=== PATIENT | male | born 1960 | race Caucasian/White ===

== ENCOUNTER 2020-08-26 09:04 | Inpatient (IN) ==
[2020-08-26] MEDS ORDERED: SODIUM CHLORIDE 0.9% 1000ML 1,000 ML IV ONE (09:38)
--- NOTE | 2020-08-26 09:45 | Emergency Department Note ---
ED Visit Note This patient was seen in concert with Dr. Vizcaino and we discussed and agreed upon the history, physical, assessment and plan. See attending's note for details. Resident Activity Tracking Resident Involvement: Resident Care Provided Care Provided: Adult ED
[2020-08-26] MEDS ORDERED: AMPICILLIN/SULBACTAM SOD 3,000 MG in 0.9 % SODIUM CHLORIDE 100 ML IV STA (09:51)
[2020-08-26] MEDS ORDERED: ACETAMINOPHEN 1,000 MG/100 ML VIAL IV STA (10:03)
[2020-08-26] MEDS ORDERED: NYSTATIN SUSP 500,000 U/5 ML UDC PO STA (10:03)
[2020-08-26] MEDS ORDERED: ALBUT/IPRATROP 3MG/0.5MG NEB 3 ML VIAL NEB STA (10:05)
--- NOTE | 2020-08-26 10:06 | Emergency Department Note ---
History of Present Illness General Chief complaint: Illness Stated complaint: LIGHTHEADED,DENTAL PAIN,CANT KEEP FOOD DOWN Time Seen by Provider: 08/26/20 09:25 Source: patient Mode of arrival: ambulatory Limitations: no limitations History of Present Illness Provider complaint: Fever weakness Maximum Pain Intensity: 4 The patient presents to the ED with a chief complaint of decreased appetite, dental pain and fever as well as decreased p.o. intake and discoloration of his urine yellow. He states that he is not been feeling well for the past week but for the past several days he has felt worse with decreased appetite, decreased urine output and feeling achy. He reports a fever up to 102 this weekend. He states that he started noticing some right upper dental pain in the past 24 to 48 hours. No additional complaints at this time. Does report a cough. History of smoker. Denies tick exposures. Home Medications Medication Instructions Recorded Confirmed Type nicotine (polacrilex) 4 mg gum 4 mg BUCCAL Q2H PRN #100 ea 07/10/20 08/26/20 Rx Allergies Allergy/AdvReac Type Severity Reaction Status Date / Time No Known Allergies Allergy Verified 08/26/20 10:40 Past Med/Surg History Family History Mother Colorectal cancer Brother GERTRUDIS (obstructive sleep apnea) Pituitary disease Renal failure Uncle Diabetes Hypertension Father , Secondary to asbestosis Asbestosis Denies family history of Ovarian cancer Prostate cancer Myocardial infarction Breast cancer Social History Smoking Status: Current every day smoker Tobacco Type: Cigarettes Age Started Using Tobacco: 14; packs per day: 0.5; Years Smoked: 40; Cigarettes Per Day: 10; Second Hand Exposure: Yes; Hx Alcohol Use: Yes Alcohol type: hard liquor Alcohol Intake Frequency: 2-3 x/Week Hx Substance Use: No Preferred Language: Swedish Communication Ability: Effective Visual Impairment: No Limitations Hearing Ability: Normal Prosthetic Aides Teacher Required: No marital status: Single Current Living Situation: Family current occupational status: employed 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 How many Children do You have: 1 Feels Safe at Home: Yes Childhood Exposure to Second-Hand Smoke: Yes caffeine: Yes during the past year weight has: remained stable Dental Care, Regularly: Yes Physical Activity Frequency: Daily Seatbelt Use: always Sunscreen Use: Yes Assistive Devices: Denture - Upper and Glasses Review of Systems A total of 10 systems reviewed and were otherwise negative Physical Exam Vital Signs Vital Signs - 24 hr 08/26/20 09:10 08/26/20 09:46 08/26/20 10:17 Temperature 36.4 C L 38.8 C H Temperature Source Temporal Artery Scan Oral Pulse Rate 121 H Pulse Rate [Apical] 101 H 96 H Pulse Rhythm [Apical] Regular Pulse Strength [Apical] Normal Respiratory Rate 18 24 16 Respiratory Effort / Characteristics Non-Labored Spontaneous Non-Labored Spontaneous Respiratory Depth Normal Respiratory Pattern Regular Blood Pressure 126/77 Blood Pressure [Right Arm] 135/83 Blood Pressure Mean 93 Blood Pressure Mean [Right Arm] 100 Blood Pressure Position [Right Arm] Sitting Pulse Oximetry 97 94 96 Oxygen Delivery Method Room Air Room Air Room Air Sepsis Recent Fever Within 48 Hours No Sepsis New/Unexplained Change in Mental Status N/A Sepsis Action Taken by Nursing No Action Required 08/26/20 11:04 Temperature 37.6 C H Temperature Source Oral Pulse Rate Pulse Rate [Apical] 75 Pulse Rhythm [Apical] Regular Pulse Strength [Apical] Normal Respiratory Rate 18 Respiratory Effort / Characteristics Non-Labored Spontaneous Respiratory Depth Normal Respiratory Pattern Regular Blood Pressure Blood Pressure [Right Arm] 105/81 Blood Pressure Mean Blood Pressure Mean [Right Arm] 89 Blood Pressure Position [Right Arm] Sitting Pulse Oximetry 94 Oxygen Delivery Method Room Air Sepsis Recent Fever Within 48 Hours Sepsis New/Unexplained Change in Mental Status Sepsis Action Taken by Nursing CONSTITUTIONAL/VITAL SIGNS: Reviewed / noted above. GENERAL: Non-toxic in appearance. INTEGUMENTARY: Warm, dry, and [place]. HEAD: Normocephalic. EYES: without scleral icterus or trauma. ENT/OROPHARYNX: clear and moist. The patient has some tenderness as well as some edema in the area of the right upper premolar or first molar. LYMPHADENOPATHY/NECK: Is supple without lymphadenopathy or meningismus. RESPIRATORY: Lungs clear and equal. CARDIOVASCULAR: Regular rate and rhythm. GI/ABDOMEN: Soft and nontender. No organomegaly or pulsatile mass. No rebound or guarding. Normal bowel sounds. EXTREMITIES: Warm and well perfused. BACK: No CVA tenderness. NEUROLOGICAL: Intact without focal deficits. PSYCHIATRIC: normal affect. MUSCULOSKELETAL: Normally developed with good muscle tone. TRIAGE NURSING DOCUMENTATION REVIEWED. Course Administered Medications Atovaquone (Atovaquone 750 Mg/5 Ml Udc) 750 mg PO Q12H RODRIGO Stop: 09/25/20 10:59 Last Admin: 08/26/20 11:14 Dose: 750 mg Documented by: [id number] Azithromycin 500 mg/ Dextrose 255 mls @ 127.5 mls/hr IV NOW STA Stop: 08/26/20 12:49 Last Admin: 08/26/20 11:14 Dose: 127.5 mls/hr Documented by: [id number] Discontinued Medications Albuterol (Albut/Ipratrop 3mg/0.5mg Neb 3 Ml Vial) 3 ml NEB NOW STA Stop: 08/26/20 10:06 Last Admin: 08/26/20 10:17 Dose: 3 ml Documented by: [id number] Sodium Chloride (Nss 1000ml) 1,000 mls @ 999 mls/hr IV .Q1H1M ONE Stop: 08/26/20 10:38 Last Infusion: 08/26/20 10:48 Dose: 0 mls/hr Documented by: [id number] Admin: 08/26/20 09:47 Dose: 999 mls/hr Documented by: [id number] Ampicillin Sodium/Sulbactam Sodium 3,000 mg/ Sodium Chloride 108 mls @ 200 mls/hr IV NOW STA; Protocol Stop: 08/26/20 10:23 Last Infusion: 08/26/20 10:48 Dose: 0 mls/hr Documented by: [id number] Admin: 08/26/20 10:10 Dose: 200 mls/hr Documented by: [id number] Acetaminophen (Ofirmev) 1,000 mg in 100 mls @ 400 mls/hr IV NOW STA Stop: 08/26/20 10:17 Last Infusion: 08/26/20 10:30 Dose: 0 mls/hr Documented by: [id number] Admin: 08/26/20 10:10 Dose: 400 mls/hr Documented by: [id number] Ioversol (Optiray 320 100ml) 94 ml IV ONCE ONE Stop: 08/26/20 10:16 Last Admin: 08/26/20 10:15 Dose: 1 ml Documented by: [id number] Nystatin (Nystatin Susp 500,000 U/5 Ml Udc) 5 ml PO NOW STA Stop: 08/26/20 10:04 Last Admin: 08/26/20 10:09 Dose: 5 ml Documented by: [id number] Medical Decision Making Differential Diagnosis Differential includes viral illness, influenza, streptococcal pharyngitis, meningitis, pneumonia, sinusitis, UTI, pyelonephritis, otitis media, dental infection, tickborne illness. Medical Records Attestation: I reviewed the patient's medical records. Home Medications Current Medication List: was personally reviewed by me Laboratory Data Attestation: I reviewed the patient's lab results. Result diagrams: 08/26/20 09:47 08/26/20 09:47 Lab Results 08/26/20 08/26/20 08/26/20 Range/Units 09:47 09:47 09:47 WBC 4.60 L (4.8-10.8) K/uL RBC 4.22 L (4.7-6.1) M/uL Hgb 13.6 L (14.0-18.0) g/dL Hct 37.9 L (42-52) % MCV 89.8 (80-100) fL MCH 32.2 (25-34) pg MCHC 35.9 (32-36) g/dL RDW Std Deviation 44.0 (36.4-46.3) fL RDW Coeff of Gokul 13.4 (11.5-14.5) % Plt Count 20 L* (130-400) K/uL Neutrophils % (Manual) 50.9 % Lymphocytes % (Manual) 7.9 % Reactive Lymphs % (Man) 34.2 % Monocytes % (Manual) 7.0 % Neutrophils # (Manual) 2.34 (1.4-6.5) K/uL Total Absolute Neuts 2.34 (1.4-6.5) K/uL Lymphocytes # (Manual) 0.36 L (1.2-3.4) K/uL Reactive Lymphs # 1.57 K/uL Total Abs Lymphocytes 1.94 (1.2-3.4) K/uL Monocytes # (Manual) 0.32 (0.11-0.59) K/uL Toxic Vacuolation 1+ Platelet Estimate SIGNIFIC DECREASED (Normal) Sodium 126 L (136-145) mmol/L Potassium 3.7 (3.5-5.1) mmol/L Chloride 92 L (98-107) mmol/L Carbon Dioxide 25 (21-32) mmol/L Anion Gap 9.0 (3-11) BUN 17 (7-18) mg/dl Creatinine 0.89 (0.6-1.4) mg/dl Est Cr Clr Drug Dosing 97.3 ml/min Est GFR ( Amer) 106.2 ml/min Est GFR (Non-Af Amer) 91.6 ml/min BUN/Creatinine Ratio 19.4 (10-20) Glucose 119 H (70-99) mg/dl Calcium 8.2 L (8.5-10.1) mg/dl Total Bilirubin 1.8 H (0.2-1) mg/dl AST 157 H (15-37) U/L ALT 63 (12-78) U/L Alkaline Phosphatase 157 H (45-117) U/L Total Protein 7.7 (6.4-8.2) gm/dl Albumin 2.7 L (3.4-5.0) gm/dl Globulin 5.0 H (2.5-4.0) gm/dl Albumin/Globulin Ratio 0.5 L (0.9-2) Anaplasma Smear See Comment Babesia microti IgG Ab Babesia microti IgM Ab Babesia microti DNA PCR Babesia Interpretation Lyme Disease IgG Ab Negative (Negative) Lyme Disease IgM Ab Equivocal A (Negative) COVID-19 Eval Order SARS-CoV-2 (PCR) (Negative) 08/26/20 08/26/20 08/26/20 Range/Units 09:47 10:24 10:24 WBC (4.8-10.8) K/uL RBC (4.7-6.1) M/uL Hgb (14.0-18.0) g/dL Hct (42-52) % MCV (80-100) fL MCH (25-34) pg MCHC (32-36) g/dL RDW Std Deviation (36.4-46.3) fL RDW Coeff of Gokul (11.5-14.5) % Plt Count (130-400) K/uL Neutrophils % (Manual) % Lymphocytes % (Manual) % Reactive Lymphs % (Man) % Monocytes % (Manual) % Neutrophils # (Manual) (1.4-6.5) K/uL Total Absolute Neuts (1.4-6.5) K/uL Lymphocytes # (Manual) (1.2-3.4) K/uL Reactive Lymphs # K/uL Total Abs Lymphocytes (1.2-3.4) K/uL Monocytes # (Manual) (0.11-0.59) K/uL Toxic Vacuolation Platelet Estimate (Normal) Sodium (136-145) mmol/L Potassium (3.5-5.1) mmol/L Chloride (98-107) mmol/L Carbon Dioxide (21-32) mmol/L Anion Gap (3-11) BUN (7-18) mg/dl Creatinine (0.6-1.4) mg/dl Est Cr Clr Drug Dosing ml/min Est GFR ( Amer) ml/min Est GFR (Non-Af Amer) ml/min BUN/Creatinine Ratio (10-20) Glucose (70-99) mg/dl Calcium (8.5-10.1) mg/dl Total Bilirubin (0.2-1) mg/dl AST (15-37) U/L ALT (12-78) U/L Alkaline Phosphatase (45-117) U/L Total Protein (6.4-8.2) gm/dl Albumin (3.4-5.0) gm/dl Globulin (2.5-4.0) gm/dl Albumin/Globulin Ratio (0.9-2) Anaplasma Smear Babesia microti IgG Ab Babesia microti IgM Ab Babesia microti DNA PCR Cancelled Babesia Interpretation Lyme Disease IgG Ab (Negative) Lyme Disease IgM Ab (Negative) COVID-19 Eval Order Covid19 at [facility] SARS-CoV-2 (PCR) NEGATIVE (Negative) 08/26/20 Range/Units 11:09 WBC (4.8-10.8) K/uL RBC (4.7-6.1) M/uL Hgb (14.0-18.0) g/dL Hct (42-52) % MCV (80-100) fL MCH (25-34) pg MCHC (32-36) g/dL RDW Std Deviation (36.4-46.3) fL RDW Coeff of Gokul (11.5-14.5) % Plt Count (130-400) K/uL Neutrophils % (Manual) % Lymphocytes % (Manual) % Reactive Lymphs % (Man) % Monocytes % (Manual) % Neutrophils # (Manual) (1.4-6.5) K/uL Total Absolute Neuts (1.4-6.5) K/uL Lymphocytes # (Manual) (1.2-3.4) K/uL Reactive Lymphs # K/uL Total Abs Lymphocytes (1.2-3.4) K/uL Monocytes # (Manual) (0.11-0.59) K/uL Toxic Vacuolation Platelet Estimate (Normal) Sodium (136-145) mmol/L Potassium (3.5-5.1) mmol/L Chloride (98-107) mmol/L Carbon Dioxide (21-32) mmol/L Anion Gap (3-11) BUN (7-18) mg/dl Creatinine (0.6-1.4) mg/dl Est Cr Clr Drug Dosing ml/min Est GFR ( Amer) ml/min Est GFR (Non-Af Amer) ml/min BUN/Creatinine Ratio (10-20) Glucose (70-99) mg/dl Calcium (8.5-10.1) mg/dl Total Bilirubin (0.2-1) mg/dl AST (15-37) U/L ALT (12-78) U/L Alkaline Phosphatase (45-117) U/L Total Protein (6.4-8.2) gm/dl Albumin (3.4-5.0) gm/dl Globulin (2.5-4.0) gm/dl Albumin/Globulin Ratio (0.9-2) Anaplasma Smear Babesia microti IgG Ab Cancelled Babesia microti IgM Ab Cancelled Babesia microti DNA PCR Babesia Interpretation Cancelled Lyme Disease IgG Ab (Negative) Lyme Disease IgM Ab (Negative) COVID-19 Eval Order SARS-CoV-2 (PCR) (Negative) Imaging Data Radiologist's Impression: Face CT 08/26/20 10:[address] DOSE: 733.69 mGy.cm HISTORY: Right facial swelling. concern for abscess of R maxilla; peridontal TECHNIQUE: Multiaxial CT images of the maxillofacial region were performed and reformatted in the coronal plane without the use of contrast. A dose lowering technique was utilized adhering to the principles of ALARA. COMPARISON: None. FINDINGS: Multiple periapical lucencies within the right maxillary molars. There is associated cortical breakthrough at ADA 4 with an adjacent 1.8 x 0.6 cm soft tissue abscess along the buccal surface of the maxilla. This is best seen on image 112. There is mild right maxillary soft tissue swelling which is likely reactive. Multiple dental caries are noted throughout the residual teeth. Small retention cyst within the left frontal sinus. No fluid levels within the paranasal sinuses. The mastoid air cells are clear. No acute fractures within the visualized osseous structures. The visualized brain parenchyma and orbits are unremarkable. IMPRESSION: Small periapical lucency at ADA 4 with cortical breakthrough along the buccal surface and an adjacent 1.8 x 0.6 cm soft tissue abscess. ACT 112: Negative or not required by law. Electronically signed by: Melvin Brock M.D. 08/26/2020 11:23 AM Chest X-Ray 08/26/20 10:07 XR chest 1V portable HISTORY: 60 years-old Male cough/fever acute cough with fever COMPARISON: None TECHNIQUE: AP view of the chest FINDINGS: Cardiomediastinal and hilar silhouettes are within normal limits. There is no pneumothorax, pleural effusion, airspace consolidation or overt pulmonary edema. Chronic pleural thickening of the lung apices. Bones appear grossly intact. IMPRESSION: No acute process. ACT 112: Negative or not required by law. The above report was generated using voice recognition software. It may contain grammatical, syntax or spelling errors. Electronically signed by: Gilmar Villegas M.D. 08/26/2020 10:33 AM MDM Narrative 60-year-old male who presents to the ED with a chief complaint of not feeling well, nausea, decreased appetite, decreased urine output, achiness as well as a right upper dental infection/early abscess. Vital signs reveal heart rate of 141. Temperature 38.8. The white blood cell count is 4.6. Platelet count is 20. Sodium is 126. Total bilirubin is 1.8. AST is 157. Blood smear is suggestive of Babesia. Lyme is indeterminate. The patient was treated with IV fluids, IV Zithromax, p.o. nystatin, p.o. atovaquone, IV Unasyn, IV Tylenol, DuoNeb treatment and IV doxycycline. He will be seen by the hospitalist for further inpatient evaluation and care. 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
[2020-08-26] MEDS ORDERED: OPTIRAY 320 100ml IV ONE (10:15)
[2020-08-26 10:18] LABS: Albumin Level 2.7 gm/dl (3.4-5.0); BUN Creatinine Ratio 19.4 (10-20); Calcium 8.2 mg/dl (8.5-10.1); Creatinine Clr Calc Pharmacy 97.3 ml/min; Est GFR (African American) 106.2 ml/min; Est GFR (Non-African American) 91.6 ml/min; Potassium 3.7 mmol/L (3.5-5.1)
[2020-08-26 10:21] LABS: Albumin Globulin Ratio 0.5 (0.9-2); Bilirubin,Total 1.8 mg/dl (0.2-1); Hematocrit (blood only) 37.9 % (42-52); Hemoglobin 13.6 g/dL (14.0-18.0); Mean Corpuscular Hemoglobin 32.2 pg (25-34); Mean Corpuscular Hgb Conc 35.9 g/dL (32-36); Mean Corpuscular Volume 89.8 fL (80-100); Platelet Count 20 K/uL (130-400); RDW Coefficient of Variation 13.4 % (11.5-14.5); Red Blood Count 4.22 M/uL (4.7-6.1); Total Protein 7.7 gm/dl (6.4-8.2)
--- NOTE | 2020-08-26 10:35 | XRay Report ---
XR chest 1V portable HISTORY: 60 years-old Male cough/fever acute cough with fever COMPARISON: None TECHNIQUE: AP view of the chest FINDINGS: Cardiomediastinal and hilar silhouettes are within normal limits. There is no pneumothorax, pleural e ffusion, airspace consolidation or overt pulmonary edema. Chronic pleural thickening of the lung apic es. Bones appear grossly intact. IMPRESSION: No acute process. ACT 112: Negative or not required by law. The above report was generated using voice recognition software. It may contain grammatical, syntax o r spelling errors. Electronically signed by: Gilmar Villegas M.D. 08/26/2020 10:33 AM
[2020-08-26 10:45] LABS: ALC (manual) 1.94 K/uL (1.2-3.4); ANC (manual) 2.34 K/uL (1.4-6.5); Lymphocytes # (manual) 0.36 K/uL (1.2-3.4); Lymphocytes % (manual) 7.9 %; Monocytes # (manual) 0.32 K/uL (0.11-0.59); Neutrophils # (manual) 2.34 K/uL (1.4-6.5); Neutrophils % (manual) 50.9 %; Platelet Estimate SIGNIFIC DECREASED (Normal); Reactive Lymphocytes # (manual) 1.57 K/uL; Reactive Lymphocytes % (manual) 34.2 %; Toxic Vacuolation 1+
[2020-08-26] MEDS ORDERED: AZITHROMYCIN 500 MG in DEXTROSE 5% 250 ML IV STA (10:50)
[2020-08-26] MEDS ORDERED: ATOVAQUONE 750 MG/5 ML UDC PO SCH (11:00)
[2020-08-26 11:10] LABS: Lyme Ab IgG w/WB Rflx Negative (Negative)
[2020-08-26 11:14] LABS: Lyme Ab IgM w/WB Rflx Equivocal (Negative)
--- NOTE | 2020-08-26 11:24 | CT Scan Report ---
MAXILLOFACIAL CT CT DOSE: 733.69 mGy.cm HISTORY: Right facial swelling. concern for abscess of R maxilla; peridontal TECHNIQUE: Multiaxial CT images of the maxillofacial region were performed and reformatted in the cor onal plane without the use of contrast. A dose lowering technique was utilized adhering to the princ [place] of [place]. COMPARISON: None. FINDINGS: Multiple periapical lucencies within the right maxillary molars. There is associated cortic al breakthrough at ADA 4 with an adjacent 1.8 x 0.6 cm soft tissue abscess along the buccal surface o f the maxilla. This is best seen on image 112. There is mild right maxillary soft tissue swelling whi ch is likely reactive. Multiple dental caries are noted throughout the residual teeth. Small retentio n cyst within the left frontal sinus. No fluid levels within the paranasal sinuses. The mastoid air c ells are clear. No acute fractures within the visualized osseous structures. The visualized brain par enchyma and orbits are unremarkable. IMPRESSION: Small periapical lucency at ADA 4 with cortical breakthrough along the buccal surface and an adjacent 1.8 x 0.6 cm soft tissue abscess. ACT 112: Negative or not required by law. Electronically signed by: Melvin Brock M.D. 08/26/2020 11:23 AM
[2020-08-26] MEDS ORDERED: DOXYCYCLINE HYCLATE 100 MG in DEXTROSE 5% 100 ML IV STA (11:54)
[2020-08-26] MEDS ORDERED: ICU PROTOCOL FOR HYPERGLYCEMIA PRN (11:56)
[2020-08-26] MEDS ORDERED: traMADol HCL 50 MG TABLET PO PRN (12:02)
--- NOTE | 2020-08-26 12:55 | History & Physical Report ---
Date of Service August 26, 2020 Assessment & Plan (1) 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: Pt is receiving Atovaquone and Zithro. ID is consulted as Lyme is equivocal and anaplasmosis is pending. As we cannot r/o coinfection, we will provide Doxy as well for now. (2) Thrombocytopenia: Anemia and leukopenia are mild. platelet count is quite low and he may need a transfusion. We will trend PM and AM. (3) Acute hyponatremia: Hypovolemic - IVF - trend BMP (4) Acute Lyme disease: Initial studies equivocal as above (5) Transaminitis: May be due to tick illness, however, ALT is WNL and he does drink liquor 2-3 x wk. Will trend. (6) Dental abscess: Will need immigration consultant. Doxy may be adequate coverage for now and ID consulted. The pt has Thrush as well and Nystatin is provided. Admission and Anticipated Discharge Date Admission Date: 08/26/20 Anticipated date of discharge: 08/29/20 History of Present Illness Chief Complaint: Fevers, dental pain, poor mike, malaise Primary Care Provider: Melvin Workman III, DIGITAL DIRECTOR 60 y/o M who denies any active medical issues. Initially with dental pain, then fevers, malaise, gen aches/pains, nausea and poor intake. The pt thought he may have an abscess and presented to the ER therefore. Although a small abscess was confirmed on CT, labs were more consistent with a systemic process, demonstrating mild leukopenia, mild anemia, thrombocytopenia with a platelet count of 20, hyponatremia and mild transaminitis. A peripheral blood smear subsequently confirmed babesiosis, while initial Lyme antibodies are equivocal. Anaplasma studies are pending. A CT of the face demonstrated a small periapical lucency at ADA 4 with cortical breakthrough along the buccal surface and an adjacent 1.8 x 0.6 cm soft tissue abscess. Allergies Allergy/AdvReac Type Severity Reaction Status Date / Time No Known Allergies Allergy Verified 08/26/20 10:40 Home Medications Medication Instructions Recorded Confirmed Type nicotine (polacrilex) 4 mg gum 4 mg BUCCAL Q2H PRN #100 ea 07/10/20 08/26/20 Rx Past Med/Surg History Family History Mother Colorectal cancer Brother GERTRUDIS (obstructive sleep apnea) Pituitary disease Renal failure Uncle Diabetes Hypertension Father , Secondary to asbestosis Asbestosis Denies family history of Ovarian cancer Prostate cancer Myocardial infarction Breast cancer Social History Smoking Status: Current every day smoker Tobacco Type: Cigarettes Age Started Using Tobacco: 14; packs per day: 0.5; Years Smoked: 40; Cigarettes Per Day: 10; Second Hand Exposure: Yes; Hx Alcohol Use: Yes Alcohol type: hard liquor Alcohol Intake Frequency: 2-3 x/Week Hx Substance Use: No Preferred Language: Montserratian Communication Ability: Effective Visual Impairment: No Limitations Hearing Ability: Normal Electrical Instrument Repairer Required: No marital status: Single Current Living Situation: Family current occupational status: employed 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 How many Children do You have: 1 Feels Safe at Home: Yes Childhood Exposure to Second-Hand Smoke: Yes caffeine: Yes during the past year weight has: remained stable Dental Care, Regularly: Yes Physical Activity Frequency: Daily Seatbelt Use: always Sunscreen Use: Yes Assistive Devices: Denture - Upper and Glasses Review of Systems Review of Systems: Gen: + Fevers, malaise x 4 days, poor mike/intake ENT: Denies congestion, throat pain, hearing loss, + Dental pain as above Eyes: Denies acute visual changes CV: Denies CP, palpitations Pulmonary: Denies SOB, cough, wheezing GI: Nausea, limited intake Neuro: Denies acute or unilateral weakness, acute gait impairment, headache or acute visual changes Musculoskeletal: + Generalized aches/pains Endocrine: Denies polydipsia, polyuria Skin: Denies acute rashes or ulcers Physical Exam Physical Exam: General: Pale, clammy, middle-aged M, AAO x 3, no distress ENT: + thrush, poor dentition Eyes: [place]OD[place], EOMI Head and neck: Normocephalic, atraumatic, No JVD, neck is supple. Chest/heart: Nontender, S1,2, RRR, no murmurs, no gallops Lungs: CTAB, no wheezing or crackles - poor air movement Abdomen: Nontender, nondistended, BS+ Neuro: AAO x 3, speech is clear, no unilateral weakness or loss of sensation, coordination intact Musculoskeletal: No joint inflammation, muscle tenderness, FROM Skin: No acute rashes or ulcers Extremities: No clubbing, cyanosis, edema Results & Data Results & Data ([facility]) Vital Signs (Past 12 Hours) Vital Signs Temp Pulse Pulse Resp BP BP Pulse Ox 08/26/20 11:04 99.7 F H 75 18 105/81 94 08/26/20 10:17 96 H 16 96 08/26/20 09:46 101.8 F H 101 H 24 135/83 94 08/26/20 09:10 97.5 F L 121 H 18 126/[address] face: Small periapical lucency at ADA 4 with cortical breakthrough along the buccal surface and an adjacent 1.8 x 0.6 cm soft tissue abscess. Code Status & VTE Plan VTE Prophylaxis Plan VTE Prophylaxis will be ordered: No PG Care Time/CCT Total # of Minutes Spent Total Time Spent with Patient: Total time spent on this admission including review of labs, meds, imaging, records - discussion with pt and ER attending - 54 min Coding Level of Care Code 59765 Initial Inpt Care Lvl 3 Diagnoses 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 B60.00 Thrombocytopenia D69.6 Acute hyponatremia E87.1 Acute Lyme disease A69.20 Transaminitis R74.01 Dental abscess K04.7
[2020-08-26] MEDS: D5NSS + 20MEQ KCL 20 MEQ/1,000 ML BAG IV SCH (15:13)
[2020-08-26] MEDS: NYSTATIN SUSP 500,000 U/5 ML UDC PO SCH ×3 (15:13→20:20)
[2020-08-26 15:27] LABS: Hematocrit (blood only) 35.5 % (42-52); Hemoglobin 12.5 g/dL (14.0-18.0); Mean Corpuscular Hemoglobin 31.9 pg (25-34); Mean Corpuscular Hgb Conc 35.2 g/dL (32-36); Mean Corpuscular Volume 90.6 fL (80-100); Mean Platelet Volume 12.4 fL (7.4-10.4); Nucleated RBC # (auto) 0.06 K/uL (0-0); Nucleated RBC % (auto) 1.3 %; Platelet Count 22 K/uL (130-400); RDW Coefficient of Variation 13.5 % (11.5-14.5); RDW Standard Deviation 44.3 fL (36.4-46.3); Red Blood Count 3.92 M/uL (4.7-6.1); White Blood Count 4.73 K/uL (4.8-10.8)
[2020-08-26 15:39] LABS: Appearance Urine Clear (Clear); Bacteria Urine Automated Negative (Negative); Bilirubin Urine Negative (Negative); Blood Urine 1+ (Negative); Cast Urine Automated 0 /lpf (0-5); Color Urine Yellow; Glucose Urine UA Negative (Negative); Ketones Urine Negative (Negative); Leukocyte Esterase Urine Negative (Negative); Nitrite Urine Negative (Negative); Protein Urine Trace (Negative); RBC Urine Automated 0-4 /hpf (0-4); Specific Gravity Urine 1.012 (1.000-1.030); Urobilinogen Urine Positive (Negative); pH Urine 6.5 (4.5-7.5)
[2020-08-26 15:54] LABS: Albumin Level 2.4 gm/dl (3.4-5.0); BUN Creatinine Ratio 19.8 (10-20); Calcium 7.9 mg/dl (8.5-10.1); Creatinine Clr Calc Pharmacy 115.4 ml/min; Est GFR (African American) 113.9 ml/min; Est GFR (Non-African American) 98.3 ml/min; Magnesium 2.2 mg/dl (1.8-2.4); Potassium 3.2 mmol/L (3.5-5.1)
[2020-08-26 15:56] LABS: Albumin Globulin Ratio 0.5 (0.9-2); Bilirubin,Total 1.6 mg/dl (0.2-1); Globulin 4.5 gm/dl (2.5-4.0); Total Protein 6.9 gm/dl (6.4-8.2)
[2020-08-26 16:34] LABS: Basophils # (auto) 0.04 K/uL (0-0.2); Basophils % (auto) 0.8 %; Immature Granulocytes # (auto) 0.01 K/uL (0.00-0.02); Immature Granulocytes % (auto) 0.2 %; Lymphocytes # (auto) 2.21 K/uL (1.2-3.4); Lymphocytes % (auto) 46.7 %; Monocytes # (auto) 0.76 K/uL (0.11-0.59); Monocytes % (auto) 16.1 %; Neutrophils # (auto) 1.71 K/uL (1.4-6.5); Neutrophils % (auto) 36.2 %; Platelet Estimate SIGNIFIC DECREASED (Normal)
[2020-08-26] MEDS: ACETAMINOPHEN 325 MG TAB PO PRN (20:14)
[2020-08-26] MEDS: ATOVAQUONE 750 MG/5 ML UDC PO SCH (20:15)
[2020-08-27] MEDS: D5NSS + 20MEQ KCL 20 MEQ/1,000 ML BAG IV SCH ×2 (00:22→07:41)
[2020-08-27] MEDS: DOXYCYCLINE HYCLATE 100 MG in DEXTROSE 5% 100 ML IV SCH ×2 (03:01→13:06)
[2020-08-27] MEDS: ACETAMINOPHEN 325 MG TAB PO PRN ×2 (03:09→17:10)
[2020-08-27 06:39] LABS: Hematocrit (blood only) 35.7 % (42-52); Hemoglobin 12.3 g/dL (14.0-18.0); Mean Corpuscular Hemoglobin 31.6 pg (25-34); Mean Corpuscular Hgb Conc 34.5 g/dL (32-36); Mean Corpuscular Volume 91.8 fL (80-100); RDW Coefficient of Variation 13.7 % (11.5-14.5); RDW Standard Deviation 45.5 fL (36.4-46.3); Red Blood Count 3.89 M/uL (4.7-6.1); White Blood Count 3.82 K/uL (4.8-10.8)
[2020-08-27 06:46] LABS: Albumin Level 2.4 gm/dl (3.4-5.0); BUN Creatinine Ratio 15.9 (10-20); Calcium 8.2 mg/dl (8.5-10.1); Est GFR (African American) 112.1 ml/min; Est GFR (Non-African American) 96.7 ml/min; Magnesium 2.2 mg/dl (1.8-2.4); Potassium 3.9 mmol/L (3.5-5.1)
[2020-08-27 06:55] LABS: Albumin Globulin Ratio 0.5 (0.9-2); Bilirubin,Total 1.7 mg/dl (0.2-1); Globulin 4.5 gm/dl (2.5-4.0); Total Protein 6.9 gm/dl (6.4-8.2)
[2020-08-27] MEDS: ATOVAQUONE 750 MG/5 ML UDC PO SCH ×2 (07:42→20:21)
[2020-08-27] MEDS: NYSTATIN SUSP 500,000 U/5 ML UDC PO SCH ×4 (07:42→20:22)
--- NOTE | 2020-08-27 07:49 | Hospitalist Progress Note ---
Date of Service August 27, 2020 Assessment & Plan Admission and Anticipated Discharge Date Admission Date: August 26, 2020 Results & Data Results & Data ([facility]) Vital Signs (Past 12 Hours) Vital Signs Temp Pulse Resp BP BP Pulse Ox 08/27/20 07:38 37.1 C 78 18 121/77 94 08/27/20 07:34 37.1 C 75 20 121/77 08/27/20 04:25 37.6 C H 08/27/20 03:05 92 H 18 120/71 94 08/27/20 02:59 39 C H 08/26/20 22:45 37.2 C 84 16 109/72 97 08/26/20 21:57 37.4 C 08/26/20 20:08 38.8 C H 92 H 18 106/68 95
[2020-08-27 07:55] LABS: Basophils # (auto) 0.03 K/uL (0-0.2); Basophils % (auto) 0.8 %; Immature Granulocytes # (auto) 0.01 K/uL (0.00-0.02); Immature Granulocytes % (auto) 0.3 %; Lymphocytes # (auto) 1.99 K/uL (1.2-3.4); Lymphocytes % (auto) 52.1 %; Monocytes # (auto) 0.48 K/uL (0.11-0.59); Monocytes % (auto) 12.6 %; Neutrophils # (auto) 1.31 K/uL (1.4-6.5); Neutrophils % (auto) 34.2 %
--- NOTE | 2020-08-27 09:40 | Medical Student Progress Note ---
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 Infection due to Babesia: - receiving Atovaquone and azithromycin. - ID is consulted as Lyme is equivocal and anaplasmosis is pending. As we cannot r/o coinfection, Doxy provided. Thrombocytopenia: - likely secondary to babesiosis - Anemia and leukopenia are mild. - Platelet count 23 today. Will continue to trend but no particular concern for bleeding or indication for transfusion. Acute hyponatremia: - Likely from poor intake - IVF - trend BMP Acute Lyme disease: - Initial studies equivocal as above. Treating with doxycycline for now. Transaminitis: - Likely secondary to tick illness, however hx 2 mixed drinks/ day for years. Continue to trend. Dental abscess: -Will need dentist. Patient already has one and advised to make an appointment to follow-up after discharge -Doxy may be adequate coverage for now and ID consulted. Oral thrush - Nystatin Tobacco use - 20+ ppd history, down to 1 pack per week for a while, hasn't smoked over the past week - determination/action stage Diet: regular Code: full code DVT prophylaxis: holding because of low platelet count Admission and Anticipated Discharge Date Admission Date: August 26, 2020 Supervising Attestation I personally examined the patient and verified all zhu points of history and exam, discussed case, and agree with decision making with Lili Angel MS4. Feeling much better. Eating well. No new complaints. Vitals noted, in general he is awake and alert pleasant no distress. HEENT normocephalic atraumatic mucous membranes moist. Breathing unlabored no accessory muscle use good effort. Skin shows no rashes no pallor or icterus. Neuro without focal deficits. Babesiosisquestion concomitant anaplasmosiscontinue doxycycline, continue atovaquone/azithromycin. Improving. Hopefully home in the next day or 2contingent on improvement in lab work. otherwise as above Subjective Feeling better this morning. Has been having fever/chills, myalgias, rigors, headaches, and poor appetite for the past week. Does not spend time in [place] but has dogs. Denies rash, chest pain, shortness of breath, abdominal pain. Smoked 1 pack of cigarette per day for many years, cut down to pack a week, and has not smoked in a week. Drinks 2 vodka mixed drinks/ day for last 10 years. Last drink a week ago. Review of Systems Review of Systems: All systems reviewed & are unremarkable except as noted in HPI & below Physical Exam Physical Exam: GENERAL: nad HEENT: conjunctiva without injection b/l, poor dentition CHEST: bl wheezes appreciated, no rhonchi or rales, normal respiratory effort CARDIOVASCULAR: heart regular rate and rhythm, no murmurs, gallops or rubs, no lower extremity edema ABD: nontender to palpation, nondistended, normal active bowel sounds SKIN: no rashes or suspicious lesions noted NEURO: PERRLA Results & Data ([facility]) Vital Signs (Past 12 Hours) Vital Signs Temp Pulse Resp BP BP Pulse Ox 08/27/20 07:38 37.1 C 78 18 121/77 94 08/27/20 07:34 37.1 C 75 20 121/77 08/27/20 04:25 37.6 C H 08/27/20 03:05 92 H 18 120/71 94 08/27/20 02:59 39 C H 08/26/20 22:45 37.2 C 84 16 109/72 97 08/26/20 21:57 37.4 C
[2020-08-27 11:03] LABS: Platelet Count 23 K/uL (130-400)
[2020-08-27] MEDS: AZITHROMYCIN 500 MG in DEXTROSE 5% 250 ML IV SCH (13:03)
--- NOTE | 2020-08-27 17:05 | Billing Data ---
Date of Service August 27, 2020 Coding Level of Care Code 31390 Subseq Hosp Care Lvl 2
[2020-08-28] MEDS: D5NSS + 20MEQ KCL 20 MEQ/1,000 ML BAG IV SCH ×5 (00:12→23:24)
[2020-08-28] MEDS: ACETAMINOPHEN 325 MG TAB PO PRN ×2 (00:15→19:49)
[2020-08-28] MEDS: DOXYCYCLINE HYCLATE 100 MG in DEXTROSE 5% 100 ML IV SCH ×2 (01:20→14:15)
[2020-08-28 08:50] LABS: Hematocrit (blood only) 32.3 % (42-52); Hemoglobin 11.1 g/dL (14.0-18.0); Mean Corpuscular Hemoglobin 32.1 pg (25-34); Mean Corpuscular Hgb Conc 34.4 g/dL (32-36); Mean Corpuscular Volume 93.4 fL (80-100); Mean Platelet Volume 12.7 fL (7.4-10.4); Platelet Count 17 K/uL (130-400); RDW Coefficient of Variation 13.8 % (11.5-14.5); RDW Standard Deviation 47.2 fL (36.4-46.3); Red Blood Count 3.46 M/uL (4.7-6.1); White Blood Count 3.71 K/uL (4.8-10.8)
[2020-08-28 08:52] LABS: Babesia microti DNA Detected (Not Detected)
[2020-08-28 09:01] LABS: Albumin Level 2.2 gm/dl (3.4-5.0); BUN Creatinine Ratio 14.9 (10-20); Bilirubin,Total 2.2 mg/dl (0.2-1); Calcium 8.1 mg/dl (8.5-10.1); Creatinine Clr Calc Pharmacy 139.6 ml/min; Est GFR (African American) 123.2 ml/min; Est GFR (Non-African American) 106.3 ml/min; Potassium 3.8 mmol/L (3.5-5.1)
[2020-08-28 09:03] LABS: Albumin Globulin Ratio 0.5 (0.9-2); Globulin 4.6 gm/dl (2.5-4.0); Total Protein 6.8 gm/dl (6.4-8.2)
[2020-08-28 09:09] LABS: ALC (manual) 2.21 K/uL (1.2-3.4); ANC (manual) 1.21 K/uL (1.4-6.5); Basophils # (manual) 0.03 K/uL (0-0.2); Basophils % (manual) 0.9 %; Lymphocytes # (manual) 0.91 K/uL (1.2-3.4); Lymphocytes % (manual) 24.6 %; Monocytes # (manual) 0.26 K/uL (0.11-0.59); Neutrophils # (manual) 1.21 K/uL (1.4-6.5); Neutrophils % (manual) 32.5 %
[2020-08-28] MEDS: ATOVAQUONE 750 MG/5 ML UDC PO SCH ×2 (09:51→20:51)
[2020-08-28] MEDS: NYSTATIN SUSP 500,000 U/5 ML UDC PO SCH ×4 (09:51→20:50)
[2020-08-28] MEDS: AZITHROMYCIN 500 MG in DEXTROSE 5% 250 ML IV SCH (12:03)
--- NOTE | 2020-08-28 14:20 | Medical Student Progress Note ---
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 Infection due to Babesia: - receiving Atovaquone and azithromycin. - ID is consulted as Lyme is equivocal and anaplasmosis is pending. As we cannot r/o coinfection, Doxy provided. Thrombocytopenia: - likely secondary to babesiosis - Anemia and leukopenia are mild. - Platelet count 23 yesterday, 17 today. Will continue to trend but no particular concern for bleeding or indication for transfusion. Acute hyponatremia: - Likely from poor intake - IVF - trend BMP Acute Lyme disease: - Initial studies equivocal as above. Treating with doxycycline for now. Transaminitis: - Likely secondary to tick illness, however hx 2 mixed drinks/ day for years. Atovaquone can also cause elevated LFTS and bilirubin - Slightly worse today from yesterday. Will continue to trend Dental abscess: -Will need dentist. Patient already has one and advised to make an appointment to follow-up after discharge -Doxy may be adequate coverage for now and ID consulted. Oral thrush - Nystatin Tobacco use - 20+ ppd history, down to 1 pack per week for a while, hasn't smoked over the past week - determination/action stage Diet: regular Code: full code DVT prophylaxis: holding because of low platelet count Admission and Anticipated Discharge Date Admission Date: August 26, 2020 Supervising Attestation I personally examined the patient and verified all zhu points of history and exam, discussed case, and agree with decision making with Lili Angel MS4. Feeling better. No new complaints. Saw infectious disease doctor earlier. Vitals noted, in general he is awake and alert pleasant no distress. HEENT normocephalic atraumatic mucous membranes moist. Breathing unlabored no accessory muscle use good effort. Abdomen soft nondistended nontender, no guarding or rigidity. Skin shows no rashes no pallor or icterus. Neuro without focal deficits. Babesiosisquestion concomitant anaplasmosiscontinue doxycycline for now, continue atovaquone/azithromycin definitely for a course. Improving. Home soonwould like to see him afebrile and see improvement in his labs. His bump in LFTs may still be related to the tickborne process, possibly a reaction to the atovaquone, or possibly a combination of effects from both of above and a degree of chronic alcohol use. otherwise as above Subjective Had fevers last night/ over night (T max 39.5). Denies myalgias and headache. Denies any bleeding. Denies mouth pain. Denies abdominal pain. Appetite is good. Last BM yesterday. Review of Systems Review of Systems: All systems reviewed & are unremarkable except as noted in HPI & below Physical Exam Physical Exam: GENERAL: nad HEENT: conjunctiva without injection b/l, poor dentition CHEST: bl wheezes appreciated, no rhonchi or rales, normal respiratory effort CARDIOVASCULAR: heart regular rate and rhythm, no murmurs, gallops or rubs, no lower extremity edema ABD: nontender to palpation, nondistended, normal active bowel sounds SKIN: no rashes or suspicious lesions noted NEURO: PERRLA Results & Data ([facility]) Vital Signs (Past 12 Hours) Vital Signs Temp Pulse Resp BP BP Pulse Ox 08/28/20 07:10 38.1 C H 87 16 133/69 95 08/28/20 06:20 37.3 C 96 H 16 134/79 08/28/20 03:54 36.8 C
--- NOTE | 2020-08-28 19:10 | Billing Data ---
Date of Service August 28, 2020 Coding Level of Care Code 45458 Subseq Hosp Care Lvl 3
[2020-08-29] MEDS: DOXYCYCLINE HYCLATE 100 MG in DEXTROSE 5% 100 ML IV SCH ×2 (01:33→14:37)
[2020-08-29] MEDS: D5NSS + 20MEQ KCL 20 MEQ/1,000 ML BAG IV SCH ×3 (06:32→22:41)
[2020-08-29 08:13] LABS: Albumin Globulin Ratio 0.5 (0.9-2); Albumin Level 2.1 gm/dl (3.4-5.0); BUN Creatinine Ratio 11.6 (10-20); Bilirubin,Total 2.2 mg/dl (0.2-1); Calcium 7.9 mg/dl (8.5-10.1); Creatinine Clr Calc Pharmacy 135.2 ml/min; Est GFR (African American) 121.6 ml/min; Est GFR (Non-African American) 104.9 ml/min; Globulin 4.3 gm/dl (2.5-4.0); Potassium 4.2 mmol/L (3.5-5.1); Total Protein 6.4 gm/dl (6.4-8.2)
[2020-08-29 08:21] LABS: Basophils # (auto) 0.02 K/uL (0-0.2); Basophils % (auto) 0.6 %; Eosinophils # (auto) 0.01 K/uL (0-0.5); Eosinophils % (auto) 0.3 %; Hematocrit (blood only) 29.7 % (42-52); Hemoglobin 10.3 g/dL (14.0-18.0); Immature Granulocytes # (auto) 0.01 K/uL (0.00-0.02); Immature Granulocytes % (auto) 0.3 %; Lymphocytes # (auto) 1.85 K/uL (1.2-3.4); Lymphocytes % (auto) 54.9 %; Mean Corpuscular Hemoglobin 32.1 pg (25-34); Mean Corpuscular Hgb Conc 34.7 g/dL (32-36); Mean Corpuscular Volume 92.5 fL (80-100); Monocytes % (auto) 11.9 %; Neutrophils # (auto) 1.08 K/uL (1.4-6.5); Platelet Count 23 K/uL (130-400); Platelet Estimate SIGNIFIC DECREASED (Normal); RDW Coefficient of Variation 13.8 % (11.5-14.5); RDW Standard Deviation 47.4 fL (36.4-46.3); Red Blood Count 3.21 M/uL (4.7-6.1); White Blood Count 3.37 K/uL (4.8-10.8)
[2020-08-29] MEDS: AZITHROMYCIN 250 MG TAB PO SCH (09:55)
[2020-08-29] MEDS: NYSTATIN SUSP 500,000 U/5 ML UDC PO SCH ×4 (09:55→20:24)
[2020-08-29] MEDS: ADVANCED PROBIOTIC 1250 MG CAPSULE PO SCH (09:55)
[2020-08-29] MEDS: ATOVAQUONE 750 MG/5 ML UDC PO SCH ×2 (09:55→20:24)
--- NOTE | 2020-08-29 12:15 | Medical Student Progress Note ---
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 Infection due to Babesia: - Recommendations from ID appreciated - Azithromycin 250mg QD- day 3 of 7 today - Atovaquone 750mg BID- day 3 of 7 today - Repeat blood smear ordered to evaluate for parasite burden and possible exchange transfusion - Lyme is equivocal and anaplasmosis is pending. As we cannot r/o coinfection, Doxy provided. Day 3. Thrombocytopenia: - likely secondary to babesiosis - Hbg 13.6 on admission, dropped to 10.3 today- repeat blood smear to evaluate for parasite burden and possible exchange transfusion as above. FOB also ordered. - Platelet count 23 08/27, 17 yesterday, 23 today. Will continue to trend but no particular concern for bleeding or indication for transfusion at this time. Acute hyponatremia: - Likely from poor intake - IVF - trend BMP Acute Lyme disease: - Initial studies equivocal as above. Treating with doxycycline for now. Transaminitis: - Likely secondary to tick illness, however hx 2 mixed drinks/ day for years. Atovaquone can also cause elevated LFTS - Holding steady. Will continue to trend Dental abscess: -Will need dentist. Patient already has one and advised to make an appointment to follow-up after discharge -Doxy adequate coverage for now as patient is asymptomatic Oral thrush - Nystatin Tobacco use - 20+ ppd history, down to 1 pack per week for a while, hasn't smoked over the past week - determination/action stage Diet: regular Code: full code DVT prophylaxis: holding because of low platelet count Disp: med/surg Admission and Anticipated Discharge Date Admission Date: August 26, 2020 Supervising Attestation I personally examined the patient and verified all zhu points of history and exam, discussed case, and agree with decision making with Lili Angel MS4. continues to feel better - even though tmax about the same with fever spike yesterday he didnt' notice it as much. no abdominal pain, tolerating regular food well. no significant dental pain either Vitals noted, in general he is awake and alert pleasant no distress. HEENT normocephalic atraumatic mucous membranes moist. Breathing unlabored no accessory muscle use good effort. Abdomen soft nondistended nontender, no guarding or rigidity. Skin shows no rashes no pallor or icterus. Neuro without focal deficits. Babesiosisquestion concomitant lyme and/or anaplasmosiscontinue atovaquone/azithromycin, continue doxy for now (either until labs confirm and therefore finish a course or if labs remain pending/equivocal/negative given endemic area would continue vs dc based on ongoing clinical picture). Physically continues to feel better, objectively (particularly labs and vitals) show essentially a plateau - d/w ID who noted that for babesiosis this would not be unexpected - stay the course for now. any worsening would necessitate concern for worsening parasitemia/etc - but right now not worsening, just not really showing improvement. dental abscess - no pain, tolerating PO well. since dental intervention would be the definitive step for this, he has no significant pain, and no surrounding facial cellulitis - for now will hold off on broader abx coverage for this problem so as to avoid potentially confusing the clinical picture with any type of antibiotic reaction. continue to encourage pt to schedule with dental while he's here in the hospital/has time and few distractions/etc otherwise as above, home once clinical picture shows clear turn to improvement Subjective Still spiking fever, but denies subjective fever/ chills. Denies abdominal pain, myalgia, or headaches. Eating well without mouth pain. Regular BMs. No other complaints. Review of Systems Review of Systems: All systems reviewed & are unremarkable except as noted in HPI & below Physical Exam Physical Exam: GENERAL: nad HEENT: conjunctiva without injection b/l, poor dentition CHEST: bl wheezes appreciated, no rhonchi or rales, normal respiratory effort CARDIOVASCULAR: heart regular rate and rhythm, no murmurs, gallops or rubs, no lower extremity edema ABD: nontender to palpation, nondistended, normal active bowel sounds SKIN: no rashes or suspicious lesions noted NEURO: PERRLA Results & Data ([facility]) Vital Signs (Past 12 Hours) Vital Signs Temp Pulse Resp BP Pulse Ox 08/29/20 06:58 37.7 C H 85 18 117/74 95
--- NOTE | 2020-08-29 12:55 | Billing Data ---
Date of Service August 29, 2020 Coding Level of Care Code 25555 Subseq Hosp Care Lvl 3
[2020-08-29] MEDS ORDERED: ACETAMINOPHEN 325 MG TAB PO PRN (12:56)
[2020-08-29] MEDS ORDERED: AMOXICILLIN/CLAVULANATE 875 MG TAB PO SCH (17:00)
[2020-08-30] MEDS: DOXYCYCLINE HYCLATE 100 MG in DEXTROSE 5% 100 ML IV SCH ×2 (01:47→13:21)
[2020-08-30] MEDS: D5NSS + 20MEQ KCL 20 MEQ/1,000 ML BAG IV SCH (06:37)
[2020-08-30 06:42] LABS: 18KDIGG Band NON-REACTIVE; 23KDIGG Band NON-REACTIVE; 23KDIGM Band REACTIVE; 28KDIGG Band NON-REACTIVE; 30KDIGG Band NON-REACTIVE; 39KDIGG Band NON-REACTIVE; 39KDIGM Band NON-REACTIVE; 41KDIGG Band NON-REACTIVE; 41KDIGM Band REACTIVE; 45KDIGG Band NON-REACTIVE; 58KDIGG Band NON-REACTIVE; 66KDIGG Band NON-REACTIVE; 93KDIGG Band NON-REACTIVE; Lyme Antibodies, WB IgG NEGATIVE (NEGATIVE); Lyme Antibodies, WB IgM POSITIVE (NEGATIVE)
[2020-08-30 07:22] LABS: Basophils # (auto) 0.02 K/uL (0-0.2); Basophils % (auto) 0.6 %; Eosinophils # (auto) 0.01 K/uL (0-0.5); Eosinophils % (auto) 0.3 %; Hematocrit (blood only) 27.1 % (42-52); Hemoglobin 9.4 g/dL (14.0-18.0); Immature Granulocytes # (auto) 0.01 K/uL (0.00-0.02); Immature Granulocytes % (auto) 0.3 %; Lymphocytes # (auto) 1.54 K/uL (1.2-3.4); Lymphocytes % (auto) 48.7 %; Mean Corpuscular Hemoglobin 31.5 pg (25-34); Mean Corpuscular Hgb Conc 34.7 g/dL (32-36); Mean Corpuscular Volume 90.9 fL (80-100); Mean Platelet Volume 12.2 fL (7.4-10.4); Monocytes # (auto) 0.54 K/uL (0.11-0.59); Monocytes % (auto) 17.1 %; Neutrophils # (auto) 1.04 K/uL (1.4-6.5); Platelet Count 30 K/uL (130-400); Platelet Estimate SIGNIFIC DECREASED (Normal); RDW Coefficient of Variation 14.1 % (11.5-14.5); RDW Standard Deviation 46.3 fL (36.4-46.3); Red Blood Count 2.98 M/uL (4.7-6.1); White Blood Count 3.16 K/uL (4.8-10.8)
[2020-08-30 07:42] LABS: Albumin Globulin Ratio 0.5 (0.9-2); BUN Creatinine Ratio 11.7 (10-20); Bilirubin,Total 1.5 mg/dl (0.2-1); Calcium 7.9 mg/dl (8.5-10.1); Creatinine Clr Calc Pharmacy 160.3 ml/min; Est GFR (African American) 130.4 ml/min; Est GFR (Non-African American) 112.5 ml/min; Globulin 4.3 gm/dl (2.5-4.0); Total Protein 6.3 gm/dl (6.4-8.2)
[2020-08-30] MEDS: ATOVAQUONE 750 MG/5 ML UDC PO SCH ×2 (09:40→21:01)
[2020-08-30] MEDS: NYSTATIN SUSP 500,000 U/5 ML UDC PO SCH ×4 (09:40→20:52)
[2020-08-30] MEDS: ADVANCED PROBIOTIC 1250 MG CAPSULE PO SCH (09:41)
[2020-08-30] MEDS: AZITHROMYCIN 250 MG TAB PO SCH (09:41)
--- NOTE | 2020-08-30 12:14 | Hospitalist Progress Note ---
Date of Service August 30, 2020 Assessment & Plan (1) 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: 60 yo M admitted for management of symptomatic Babesiosis. Babesiosis - atovaquone, azithromycin, doxycycline - confirmed on parasite blood smear, peripheral smear, PCR - hemodynamically stable - parasite burden 2 - 4.9% - Discussed case with occupational health manager jac ID. will need exchange transfusion at [facility] if hemolyzing, or parasite >10%, or hemodynamically unstable. 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 Afebrile for 24h. Transaminitis - Tb 1.8, AST 157, ALT 63, Alk Phos 157 on admisision - TB 1.5, AST 189, ALT 101, Alk Phos 293 today - no abd pain DVT ppx: amb ad carlos alberto FEN/GI: regular diet, pantoprazole PO BID Code Status: FUll code DIspo: Med/SUrg (2) Acute Lyme disease: (3) Thrombocytopenia: (4) Transaminitis: (5) Dental abscess: (6) Acute hyponatremia: Admission and Anticipated Discharge Date Admission Date: August 26, 2020 Supervising Physician Co-Signing Physician Notes I personally saw and examined the patient. I verified all zhu points and agree with resident physician Dr Deborah Arroyo with the following exceptions and/or additions: Patient is well appearing. hemoglobin mildly decreasing. Possibly dilutional with IV fluids being given. Difficult to exclude hemolysis with LDH increasing. Resident contacted ID Jac and no need for exchange transfusion at this time. HS RRR, no murmurs, Chest CTAB, no wheezing appreciated. Subjective feeling well today. anxious to go home. no complaints. Review of Systems Constitutional: no fever, no chills, no sweats and no fatigue Eyes: no blind spots and no discharge Ear, Nose, Mouth, Throat: no hearing loss and no nasal congestion Respiratory: no cough and no dyspnea Cardiovascular: no chest pain, no dyspnea on exertion and no edema Gastrointestinal: no abdominal pain, no nausea, no vomiting, no constipation, no diarrhea/loose stools and no blood in stools Musculoskeletal: no joint pain and no myalgia Neurologic: no tingling, no numbness and no headache(s) Endocrine: no fatigue Physical Exam Physical Exam: GENERAL: nad HEENT: conjunctiva without injection b/l, poor dentition CHEST: bl wheezes appreciated, no rhonchi or rales, normal respiratory effort CARDIOVASCULAR: heart regular rate and rhythm, no murmurs, gallops or rubs, no lower extremity edema ABD: nontender to palpation, nondistended, normal active bowel sounds SKIN: no rashes or suspicious lesions noted Results & Data Results & Data ([facility]) Vital Signs (Past 12 Hours) Vital Signs Temp Pulse Resp BP Pulse Ox 08/30/20 08:00 37.3 C 86 20 113/72 96 Laboratory Results WBC 3.16 K/uL (4.8-10.8) L 08/30/20 06:41 RBC 2.98 M/uL (4.7-6.1) L 08/30/20 06:41 Hgb 9.4 g/dL (14.0-18.0) L 08/30/20 06:41 Hct 27.1 % (42-52) L 08/30/20 06:41 MCV 90.9 fL (80-100) 08/30/20 06:41 MCH 31.5 pg (25-34) 08/30/20 06:41 MCHC 34.7 g/dL (32-36) 08/30/20 06:41 RDW Std Deviation 46.3 fL (36.4-46.3) 08/30/20 06:41 RDW Coeff of Gokul 14.1 % (11.5-14.5) 08/30/20 06:41 Plt Count 30 K/uL (130-400) L 08/30/20 06:41 MPV 12.2 fL (7.4-10.4) H 08/30/20 06:41 Immature Gran % (Auto) 0.3 % 08/30/20 06:41 Neut % (Auto) 33.0 % 08/30/20 06:41 Lymph % (Auto) 48.7 % 08/30/20 06:41 [place] % (Auto) 17.1 % 08/30/20 06:41 Eos % (Auto) 0.3 % 08/30/20 06:41 Baso % (Auto) 0.6 % 08/30/20 06:41 Neut # (Auto) 1.04 K/uL (1.4-6.5) L 08/30/20 06:41 Lymph # (Auto) 1.54 K/uL (1.2-3.4) 08/30/20 06:41 [place] # (Auto) 0.54 K/uL (0.11-0.59) 08/30/20 06:41 Eos # (Auto) 0.01 K/uL (0-0.5) 08/30/20 06:41 Baso # (Auto) 0.02 K/uL (0-0.2) 08/30/20 06:41 Immature Gran # (Auto) 0.01 K/uL (0.00-0.02) 08/30/20 06:41 Absolute Nucleated RBC 0.06 K/uL (0-0) H 08/26/20 11:13 Nucleated RBC % (auto) 1.3 % 08/26/20 11:13 Neutrophils % (Manual) 32.5 % 08/28/20 07:48 Lymphocytes % (Manual) 24.6 % 08/28/20 07:48 Reactive Lymphs % (Man) 35.0 % 08/28/20 07:48 Monocytes % (Manual) 7.0 % 08/28/20 07:48 Basophils % (Manual) 0.9 % 08/28/20 07:48 Neutrophils # (Manual) 1.21 K/uL (1.4-6.5) L 08/28/20 07:48 Total Absolute Neuts 1.21 K/uL (1.4-6.5) L 08/28/20 07:48 Lymphocytes # (Manual) 0.91 K/uL (1.2-3.4) L 08/28/20 07:48 Reactive Lymphs # 1.30 K/uL 08/28/20 07:48 Total Abs Lymphocytes 2.21 K/uL (1.2-3.4) 08/28/20 07:48 Monocytes # (Manual) 0.26 K/uL (0.11-0.59) 08/28/20 07:48 Basophils # (Manual) 0.03 K/uL (0-0.2) 08/28/20 07:48 Toxic Vacuolation 1+ 08/26/20 09:47 Platelet Estimate SIGNIFIC DECREASED (Normal) 08/30/20 06:41 Peripher Smr Path Cons 08/26/20 09:47 Sodium 132 mmol/L (136-145) L 08/30/20 06:41 Potassium 4.0 mmol/L (3.5-5.1) 08/30/20 06:41 Chloride 103 mmol/L (98-107) 08/30/20 06:41 Carbon Dioxide 23 mmol/L (21-32) 08/30/20 06:41 Anion Gap 6.0 (3-11) 08/30/20 06:41 BUN 6 mg/dl (7-18) L 08/30/20 06:41 Creatinine 0.54 mg/dl (0.6-1.4) L 08/30/20 06:41 Est Cr Clr Drug Dosing 160.3 ml/min 08/30/20 06:41 Est GFR ( Amer) 130.4 ml/min 08/30/20 06:41 Est GFR (Non-Af Amer) 112.5 ml/min 08/30/20 06:41 BUN/Creatinine Ratio 11.7 (10-20) 08/30/20 06:41 Glucose 101 mg/dl (70-99) H 08/30/20 06:41 Calcium 7.9 mg/dl (8.5-10.1) L 08/30/20 06:41 Magnesium 2.2 mg/dl (1.8-2.4) 08/27/20 05:45 Total Bilirubin 1.5 mg/dl (0.2-1) H 08/30/20 06:41 Direct Bilirubin 1.6 mg/dl (0-0.2) H 08/28/20 07:48 AST 189 U/L (15-37) H 08/30/20 06:41 ALT 101 U/L (12-78) H 08/30/20 06:41 Alkaline Phosphatase 293 U/L (45-117) H 08/30/20 06:41 Total Protein 6.3 gm/dl (6.4-8.2) L 08/30/20 06:41 Albumin 2.0 gm/dl (3.4-5.0) L 08/30/20 06:41 Globulin 4.3 gm/dl (2.5-4.0) H 08/30/20 06:41 Albumin/Globulin Ratio 0.5 (0.9-2) L 08/30/20 06:41 Specimen Hemolysis 08/30/20 06:41 Urine Color Yellow 08/26/20 15:15 Urine Appearance Clear (Clear) 08/26/20 15:15 Urine pH 6.5 (4.5-7.5) 08/26/20 15:15 Ur Specific [place] 1.012 (1.000-1.030) 08/26/20 15:15 Urine Protein Trace (Negative) H 08/26/20 15:15 Urine Glucose (UA) Negative (Negative) 08/26/20 15:15 Urine Ketones Negative (Negative) 08/26/20 15:15 Urine Blood 1+ (Negative) H 08/26/20 15:15 Urine Nitrite Negative (Negative) 08/26/20 15:15 Urine Bilirubin Negative (Negative) 08/26/20 15:15 Urine Urobilinogen Positive (Negative) H 08/26/20 15:15 Ur Leukocyte Esterase Negative (Negative) 08/26/20 15:15 Urine WBC (Auto) 1-5 /hpf (0-5) 08/26/20 15:15 Urine RBC (Auto) 0-4 /hpf (0-4) 08/26/20 15:15 U Hyaline Cast (Auto) 0 /lpf (0-5) 08/26/20 15:15 U Epithel Cells (Auto) 5-10 /lpf (0-5) H 08/26/20 15:15 Urine Bacteria (Auto) Negative (Negative) 08/26/20 15:15 Nasal Screen MRSA (PCR) Positive (Negative) A 08/26/20 13:47 Anaplasma Smear See Comment 08/26/20 09:47 A. phagocytophilum DNA Not Detected (Not Detected) 08/26/20 11:09 Babesia microti IgG Ab Cancelled 08/26/20 11:09 Babesia microti IgM Ab Cancelled 08/26/20 11:09 Babesia microti DNA PCR Detected (Not Detected) A 08/26/20 11:09 Babesia Interpretation Cancelled 08/26/20 11:09 Lyme Disease IgG Ab Negative (Negative) 08/26/20 09:47 Lyme IgG (Western Blot) NEGATIVE (NEGATIVE) 08/26/20 09:47 Lyme IgG 18 kDa Band NON-REACTIVE 08/26/20 09:47 Lyme IgG 23 kDa Band NON-REACTIVE 08/26/20 09:47 Lyme IgG 28 kDa Band NON-REACTIVE 08/26/20 09:47 Lyme IgG 30 kDa Band NON-REACTIVE 08/26/20 09:47 Lyme IgG 39 kDa Band NON-REACTIVE 08/26/20 09:47 Lyme IgG 41 kDa Band NON-REACTIVE 08/26/20 09:47 Lyme IgG 45 kDa Band NON-REACTIVE 08/26/20 09:47 Lyme IgG 58 kDa Band NON-REACTIVE 08/26/20 09:47 Lyme IgG 66 kDa Band NON-REACTIVE 08/26/20 09:47 Lyme IgG 93 kDa Band NON-REACTIVE 08/26/20 09:47 Lyme IgM Ab (WB) POSITIVE (NEGATIVE) A 08/26/20 09:47 Lyme Disease IgM Ab Equivocal (Negative) A 08/26/20 09:47 Lyme IgM 23 kDa Band REACTIVE A 08/26/20 09:47 Lyme IgM 39 kDa Band NON-REACTIVE 08/26/20 09:47 Lyme IgM 41 kDa Band REACTIVE A 08/26/20 09:47 COVID-19 Eval Order Covid19 at [facility] 08/26/20 10:24 SARS-CoV-2 (PCR) NEGATIVE (Negative) 08/26/20 10:24 Blood Type A Positive 08/29/20 09:01 Antibody Screen NEGATIVE 08/29/20 09:[address] 08/26/20 10:[address] DOSE: 733.69 mGy.cm HISTORY: Right facial swelling. concern for abscess of R maxilla; peridontal TECHNIQUE: Multiaxial CT images of the maxillofacial region were performed and reformatted in the coronal plane without the use of contrast. A dose lowering technique was utilized adhering to the principles of ALARA. COMPARISON: None. FINDINGS: Multiple periapical lucencies within the right maxillary molars. There is associated cortical breakthrough at ADA 4 with an adjacent 1.8 x 0.6 cm soft tissue abscess along the buccal surface of the maxilla. This is best seen on image 112. There is mild right maxillary soft tissue swelling which is likely reactive. Multiple dental caries are noted throughout the residual teeth. Small retention cyst within the left frontal sinus. No fluid levels within the paranasal sinuses. The mastoid air cells are clear. No acute fractures within the visualized osseous structures. The visualized brain parenchyma and orbits are unremarkable. IMPRESSION: Small periapical lucency at ADA 4 with cortical breakthrough along the buccal surface and an adjacent 1.8 x 0.6 cm soft tissue abscess. ACT 112: Negative or not required by law. Electronically signed by: Melvin Brock M.D. 08/26/2020 11:23 AM Chest X-Ray 08/26/20 10:07 XR chest 1V portable HISTORY: 60 years-old Male cough/fever acute cough with fever COMPARISON: None TECHNIQUE: AP view of the chest FINDINGS: Cardiomediastinal and hilar silhouettes are within normal limits. There is no p neumothorax, pleural effusion, airspace consolidation or overt pulmonary edema. Chronic pleural thickening of the lung apices. Bones appear grossly intact. IMPRESSION: No acute process. ACT 112: Negative or not required by law. The above report was generated using voice recognition software. It may contain grammatical, syntax or spelling errors. Electronically signed by: Gilmar Villegas M.D. 08/26/2020 10:33 AM Resident Activity Tracking Resident Involvement: Resident Care Provided Care Provided: Adult Hospital Medicine
[2020-08-30] MEDS: PANTOprazole 40 MG TAB PO SCH (21:02)
[2020-08-30 23:12] LABS: Babesia microti Ab Interpret Past Infection; Babesia microti IgG >=1:1024 titer (<1:64)
[2020-08-31] MEDS: DOXYCYCLINE HYCLATE 100 MG in DEXTROSE 5% 100 ML IV SCH ×2 (01:29→13:28)
[2020-08-31 06:39] LABS: Albumin Globulin Ratio 0.5 (0.9-2); Albumin Level 2.1 gm/dl (3.4-5.0); BUN Creatinine Ratio 14.4 (10-20); Bilirubin,Total 1.4 mg/dl (0.2-1); Calcium 8.1 mg/dl (8.5-10.1); Creatinine Clr Calc Pharmacy 157.4 ml/min; Est GFR (African American) 129.4 ml/min; Est GFR (Non-African American) 111.7 ml/min; Globulin 4.2 gm/dl (2.5-4.0); Potassium 3.7 mmol/L (3.5-5.1); Total Protein 6.3 gm/dl (6.4-8.2)
[2020-08-31 06:56] LABS: Hematocrit (blood only) 27.5 % (42-52); Hemoglobin 9.2 g/dL (14.0-18.0); Mean Corpuscular Hemoglobin 31.2 pg (25-34); Mean Corpuscular Hgb Conc 33.5 g/dL (32-36); Mean Corpuscular Volume 93.2 fL (80-100); Mean Platelet Volume 12.8 fL (7.4-10.4); Platelet Count 43 K/uL (130-400); RDW Coefficient of Variation 14.1 % (11.5-14.5); RDW Standard Deviation 48.4 fL (36.4-46.3); Red Blood Count 2.95 M/uL (4.7-6.1)
[2020-08-31 06:58] LABS: ALC (manual) 1.77 K/uL (1.2-3.4); ANC (manual) 1.15 K/uL (1.4-6.5); Eosinophils # (manual) 0.03 K/uL (0-0.5); Eosinophils % (manual) 0.9 %; Lymphocytes # (manual) 1.77 K/uL (1.2-3.4); Lymphocytes % (manual) 52.2 %; Monocytes # (manual) 0.44 K/uL (0.11-0.59); Neutrophils # (manual) 1.15 K/uL (1.4-6.5); Neutrophils % (manual) 33.9 %
--- NOTE | 2020-08-31 08:46 | Hospitalist Progress Note ---
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 Babesiosis - atovaquone, azithromycin - confirmed on parasite blood smear, peripheral smear, PCR - hemodynamically stable - parasite burden 2 - 4.9%, - Discussed case with endodontics dentist [facility] ID on 08/30 and . will need exchange transfusion at [facility] if actively hemolyzing, parasite burden >10%, or hemodynamically unstable. 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 - LDH elevated at 1258/1224 - baseline Hg 15, 13.6 on admission, 9.2 today - no c/o melanotic stool, BRBPR, hematuria, epigastric pain - Plt improved to 43, no signs of bleeding at this time. Afebrile since 08/28. Transaminitis, improving - Tb 1.8, AST 157, ALT 63, Alk Phos 157 on admisision - TB 1.5, AST 189, ALT 101, Alk Phos 293 today - no abd pain Lyme Disease Co-infection - doxycycline started empirically on 08/26 with equivocal lyme titer - lyme IgM Ab returned positive on western blot - treat for 10 days until 09/05 DVT ppx: amb ad carlos alberto FEN/GI: regular diet, pantoprazole PO BID Code Status: FUll code DIspo: Med/Surg (2) Acute Lyme disease: (3) Thrombocytopenia: (4) Transaminitis: (5) Dental abscess: (6) Acute hyponatremia: Admission and Anticipated Discharge Date Admission Date: August 26, 2020 Supervising Physician Co-Signing Physician Notes I personally saw and examined the patient. I verified all zhu points and agree with resident physician Dr Deborah Arroyo with the following exceptions and/or additions: Patient feeling well. No chest pain, dizziness or shortness of breath to suggest symptomatic anemia. LDH stable. Chest CTAB, HS 1+2, no murmurs, Abdo SNT, Calves SNT. Continue treatment for babesiosis. On discussion between resident and ID no need for exchange transfusion at this time which I agree. Subjective feeling well this AM. continues to have no complaints. Discussed recommendations from [facility] infection disease regarding hemolysis with babesiosis. feeling well this AM. continues to have no complaints. Discussed recommendations from [facility] infection disease regarding hemolysis with babesiosis. Review of Systems Constitutional: no fever, no chills, no sweats and no fatigue Ear, Nose, Mouth, Throat: no epistaxis and no bleeding gums Respiratory: no cough and no dyspnea Cardiovascular: no chest pain and no edema Gastrointestinal: no abdominal pain, no nausea, no vomiting, no constipation, no diarrhea/loose stools and no blood in stools Genitourinary: no hematuria Neurologic: no tingling, no numbness and no headache(s) Endocrine: no fatigue Physical Exam Physical Exam: GENERAL: nad HEENT: conjunctiva without injection b/l, poor dentition CHEST: normal respiratory effort, CTA CARDIOVASCULAR: heart regular rate and rhythm, no murmurs, gallops or rubs, no lower extremity edema ABD: nontender to palpation, nondistended, normal active bowel sounds SKIN: no rashes or suspicious lesions noted Results & Data Results & Data ([facility]) Vital Signs (Past 12 Hours) Vital Signs Temp Pulse Resp BP Pulse Ox 08/31/20 07:16 36.8 C 91 H 16 111/71 95 08/30/20 23:28 37.3 C 76 18 116/72 95 Laboratory Results WBC 3.40 K/uL (4.8-10.8) L 08/31/20 05:39 RBC 2.95 M/uL (4.7-6.1) L 08/31/20 05:39 Hgb 9.2 g/dL (14.0-18.0) L 08/31/20 05:39 Hct 27.5 % (42-52) L 08/31/20 05:39 MCV 93.2 fL (80-100) 08/31/20 05:39 MCH 31.2 pg (25-34) 08/31/20 05:39 MCHC 33.5 g/dL (32-36) 08/31/20 05:39 RDW Std Deviation 48.4 fL (36.4-46.3) H 08/31/20 05:39 RDW Coeff of Gokul 14.1 % (11.5-14.5) 08/31/20 05:39 Plt Count 43 K/uL (130-400) L 08/31/20 05:39 MPV 12.8 fL (7.4-10.4) H 08/31/20 05:39 Immature Gran % (Auto) 0.3 % 08/30/20 06:41 Neut % (Auto) 33.0 % 08/30/20 06:41 Lymph % (Auto) 48.7 % 08/30/20 06:41 [place] % (Auto) 17.1 % 08/30/20 06:41 Eos % (Auto) 0.3 % 08/30/20 06:41 Baso % (Auto) 0.6 % 08/30/20 06:41 Neut # (Auto) 1.04 K/uL (1.4-6.5) L 08/30/20 06:41 Lymph # (Auto) 1.54 K/uL (1.2-3.4) 08/30/20 06:41 [place] # (Auto) 0.54 K/uL (0.11-0.59) 08/30/20 06:41 Eos # (Auto) 0.01 K/uL (0-0.5) 08/30/20 06:41 Baso # (Auto) 0.02 K/uL (0-0.2) 08/30/20 06:41 Immature Gran # (Auto) 0.01 K/uL (0.00-0.02) 08/30/20 06:41 Absolute Nucleated RBC 0.06 K/uL (0-0) H 08/26/20 11:13 Nucleated RBC % (auto) 1.3 % 08/26/20 11:13 Neutrophils % (Manual) 33.9 % 08/31/20 05:39 Lymphocytes % (Manual) 52.2 % 08/31/20 05:39 Reactive Lymphs % (Man) 35.0 % 08/28/20 07:48 Monocytes % (Manual) 13.0 % 08/31/20 05:39 Eosinophils % (Manual) 0.9 % 08/31/20 05:39 Basophils % (Manual) 0.9 % 08/28/20 07:48 Neutrophils # (Manual) 1.15 K/uL (1.4-6.5) L 08/31/20 05:39 Total Absolute Neuts 1.15 K/uL (1.4-6.5) L 08/31/20 05:39 Lymphocytes # (Manual) 1.77 K/uL (1.2-3.4) 08/31/20 05:39 Reactive Lymphs # 1.30 K/uL 08/28/20 07:48 Total Abs Lymphocytes 1.77 K/uL (1.2-3.4) 08/31/20 05:39 Monocytes # (Manual) 0.44 K/uL (0.11-0.59) 08/31/20 05:39 Eosinophils # (Manual) 0.03 K/uL (0-0.5) 08/31/20 05:39 Basophils # (Manual) 0.03 K/uL (0-0.2) 08/28/20 07:48 Toxic Vacuolation 1+ 08/26/20 09:47 Platelet Estimate SIGNIFIC DECREASED (Normal) 08/30/20 06:41 Peripher Smr Path Cons 08/26/20 09:47 Sodium 134 mmol/L (136-145) L 08/31/20 05:39 Potassium 3.7 mmol/L (3.5-5.1) 08/31/20 05:39 Chloride 104 mmol/L (98-107) 08/31/20 05:39 Carbon Dioxide 24 mmol/L (21-32) 08/31/20 05:39 Anion Gap 6.0 (3-11) 08/31/20 05:39 BUN 8 mg/dl (7-18) 08/31/20 05:39 Creatinine 0.55 mg/dl (0.6-1.4) L 08/31/20 05:39 Est Cr Clr Drug Dosing 157.4 ml/min 08/31/20 05:39 Est GFR ( Amer) 129.4 ml/min 08/31/20 05:39 Est GFR (Non-Af Amer) 111.7 ml/min 08/31/20 05:39 BUN/Creatinine Ratio 14.4 (10-20) 08/31/20 05:39 Glucose 100 mg/dl (70-99) H 08/31/20 05:39 Calcium 8.1 mg/dl (8.5-10.1) L 08/31/20 05:39 Magnesium 2.2 mg/dl (1.8-2.4) 08/27/20 05:45 Total Bilirubin 1.4 mg/dl (0.2-1) H 08/31/20 05:39 Direct Bilirubin 1.6 mg/dl (0-0.2) H 08/28/20 07:48 AST 140 U/L (15-37) H 08/31/20 05:39 ALT 87 U/L (12-78) H 08/31/20 05:39 Alkaline Phosphatase 257 U/L (45-117) H 08/31/20 05:39 Lactate Dehydrogenase 1224 U/L (87-241) H 08/31/20 05:39 Total Protein 6.3 gm/dl (6.4-8.2) L 08/31/20 05:39 Albumin 2.1 gm/dl (3.4-5.0) L 08/31/20 05:39 Globulin 4.2 gm/dl (2.5-4.0) H 08/31/20 05:39 Albumin/Globulin Ratio 0.5 (0.9-2) L 08/31/20 05:39 Specimen Hemolysis Cancelled 08/31/20 05:39 Urine Color Yellow 08/26/20 15:15 Urine Appearance Clear (Clear) 08/26/20 15:15 Urine pH 6.5 (4.5-7.5) 08/26/20 15:15 Ur Specific [place] 1.012 (1.000-1.030) 08/26/20 15:15 Urine Protein Trace (Negative) H 08/26/20 15:15 Urine Glucose (UA) Negative (Negative) 08/26/20 15:15 Urine Ketones Negative (Negative) 08/26/20 15:15 Urine Blood 1+ (Negative) H 08/26/20 15:15 Urine Nitrite Negative (Negative) 08/26/20 15:15 Urine Bilirubin Negative (Negative) 08/26/20 15:15 Urine Urobilinogen Positive (Negative) H 08/26/20 15:15 Ur Leukocyte Esterase Negative (Negative) 08/26/20 15:15 Urine WBC (Auto) 1-5 /hpf (0-5) 08/26/20 15:15 Urine RBC (Auto) 0-4 /hpf (0-4) 08/26/20 15:15 U Hyaline Cast (Auto) 0 /lpf (0-5) 08/26/20 15:15 U Epithel Cells (Auto) 5-10 /lpf (0-5) H 08/26/20 15:15 Urine Bacteria (Auto) Negative (Negative) 08/26/20 15:15 Nasal Screen MRSA (PCR) Positive (Negative) A 08/26/20 13:47 Anaplasma Smear See Comment 08/26/20 09:47 A. phagocytophilum DNA Not Detected (Not Detected) 08/26/20 11:09 Babesia microti IgG Ab Cancelled 08/26/20 11:09 Babesia microti IgM Ab Cancelled 08/26/20 11:09 Babesia microti DNA PCR Detected (Not Detected) A 08/26/20 11:09 Babesia Interpretation Cancelled 08/26/20 11:09 Lyme Disease IgG Ab Negative (Negative) 08/26/20 09:47 Lyme IgG (Western Blot) NEGATIVE (NEGATIVE) 08/26/20 09:47 Lyme IgG 18 kDa Band NON-REACTIVE 08/26/20 09:47 Lyme IgG 23 kDa Band NON-REACTIVE 08/26/20 09:47 Lyme IgG 28 kDa Band NON-REACTIVE 08/26/20 09:47 Lyme IgG 30 kDa Band NON-REACTIVE 08/26/20 09:47 Lyme IgG 39 kDa Band NON-REACTIVE 08/26/20 09:47 Lyme IgG 41 kDa Band NON-REACTIVE 08/26/20 09:47 Lyme IgG 45 kDa Band NON-REACTIVE 08/26/20 09:47 Lyme IgG 58 kDa Band NON-REACTIVE 08/26/20 09:47 Lyme IgG 66 kDa Band NON-REACTIVE 08/26/20 09:47 Lyme IgG 93 kDa Band NON-REACTIVE 08/26/20 09:47 Lyme IgM Ab (WB) POSITIVE (NEGATIVE) A 08/26/20 09:47 Lyme Disease IgM Ab Equivocal (Negative) A 08/26/20 09:47 Lyme IgM 23 kDa Band REACTIVE A 08/26/20 09:47 Lyme IgM 39 kDa Band NON-REACTIVE 08/26/20 09:47 Lyme IgM 41 kDa Band REACTIVE A 08/26/20 09:47 COVID-19 Eval Order Covid19 at [facility] 08/26/20 10:24 SARS-CoV-2 (PCR) NEGATIVE (Negative) 08/26/20 10:24 Blood Type A Positive 08/29/20 09:01 Antibody Screen NEGATIVE 08/29/20 09:[address] 08/26/20 10:[address] DOSE: 733.69 mGy.cm HISTORY: Right facial swelling. concern for abscess of R maxilla; peridontal TECHNIQUE: Multiaxial CT images of the maxillofacial region were performed and reformatted in the coronal plane without the use of contrast. A dose lowering technique was utilized adhering to the principles of ALARA. COMPARISON: None. FINDINGS: Multiple periapical lucencies within the right maxillary molars. There is associated cortical breakthrough at ADA 4 with an adjacent 1.8 x 0.6 cm soft tissue abscess along the buccal surface of the maxilla. This is best seen on image 112. There is mild right maxillary soft tissue swelling which is likely reactive. Multiple dental caries are noted throughout the residual teeth. Small retention cyst within the left frontal sinus. No fluid levels within the paranasal sinuses. The mastoid air cells are clear. No acute fractures within the visualized osseous structures. The visualized brain parenchyma and orbits are unremarkable. IMPRESSION: Small periapical lucency at ADA 4 with cortical breakthrough along the buccal surface and an adjacent 1.8 x 0.6 cm soft tissue abscess. ACT 112: Negative or not required by law. Electronically signed by: Melvin Brock M.D. 08/26/2020 11:23 AM Chest X-Ray 08/26/20 10:07 XR chest 1V portable HISTORY: 60 years-old Male cough/fever acute cough with fever COMPARISON: None TECHNIQUE: AP view of the chest FINDINGS: Cardiomediastinal and hilar silhouettes are within normal limits. There is no pneumothorax, pleural effusion, airspace consolidation or overt pulmonary edema. Chronic pleural thickening of the lung apices. Bones appear grossly intact. IMPRESSION: No acute process. ACT 112: Negative or not required by law. The above report was generated using voice recognition software. It may contain grammatical, syntax or spelling errors. Electronically signed by: Gilmar Villegas M.D. 08/26/2020 10:33 AM Resident Activity Tracking Resident Involvement: Resident Care Provided Care Provided: Adult [facility] Medicine
[2020-08-31] MEDS: ATOVAQUONE 750 MG/5 ML UDC PO SCH ×2 (09:58→21:30)
[2020-08-31] MEDS: PANTOprazole 40 MG TAB PO SCH ×2 (10:00→21:30)
[2020-08-31] MEDS: AZITHROMYCIN 250 MG TAB PO SCH (10:00)
[2020-08-31] MEDS: NYSTATIN SUSP 500,000 U/5 ML UDC PO SCH ×4 (10:00→21:26)
[2020-08-31] MEDS: ADVANCED PROBIOTIC 1250 MG CAPSULE PO SCH (10:00)
[2020-09-01] MEDS: DOXYCYCLINE HYCLATE 100 MG in DEXTROSE 5% 100 ML IV SCH ×2 (01:29→14:38)
[2020-09-01 07:17] LABS: Hemoglobin 9.6 g/dL (14.0-18.0); Mean Corpuscular Hemoglobin 31.3 pg (25-34); Mean Corpuscular Hgb Conc 34.3 g/dL (32-36); Mean Corpuscular Volume 91.2 fL (80-100); Mean Platelet Volume 11.8 fL (7.4-10.4); Platelet Count 74 K/uL (130-400); RDW Coefficient of Variation 14.1 % (11.5-14.5); RDW Standard Deviation 46.5 fL (36.4-46.3); Red Blood Count 3.07 M/uL (4.7-6.1); White Blood Count 4.28 K/uL (4.8-10.8)
[2020-09-01 07:42] LABS: BUN Creatinine Ratio 14.8 (10-20); Calcium 8.3 mg/dl (8.5-10.1); Creatinine Clr Calc Pharmacy 127.3 ml/min; Est GFR (African American) 118.6 ml/min; Est GFR (Non-African American) 102.4 ml/min; Potassium 3.9 mmol/L (3.5-5.1)
[2020-09-01 07:47] LABS: ALC (manual) 2.27 K/uL (1.2-3.4); ANC (manual) 1.48 K/uL (1.4-6.5); Lymphocytes # (manual) 0.68 K/uL (1.2-3.4); Lymphocytes % (manual) 15.9 %; Monocytes # (manual) 0.53 K/uL (0.11-0.59); Monocytes % (manual) 12.4 %; Neutrophils # (manual) 1.48 K/uL (1.4-6.5); Neutrophils % (manual) 34.5 %; Polychromasia 1+; Reactive Lymphocytes # (manual) 1.59 K/uL; Reactive Lymphocytes % (manual) 37.2 %
[2020-09-01] MEDS: PANTOprazole 40 MG TAB PO SCH ×2 (09:11→21:14)
[2020-09-01] MEDS: ADVANCED PROBIOTIC 1250 MG CAPSULE PO SCH (09:11)
[2020-09-01] MEDS: ATOVAQUONE 750 MG/5 ML UDC PO SCH ×2 (09:11→21:14)
[2020-09-01] MEDS: AZITHROMYCIN 250 MG TAB PO SCH (09:11)
[2020-09-01] MEDS: NYSTATIN SUSP 500,000 U/5 ML UDC PO SCH ×4 (09:11→21:14)
--- NOTE | 2020-09-01 09:36 | Medical Student Progress Note ---
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 Babesiosis - atovaquone and azithromycin treatment started 08/26, will continue through 09/04 for total 10 day course - babesiosis confirmed on parasite blood smear, peripheral smear, PCR - hemodynamically stable - parasite burden 2 - 4.9%, - Discussed case with commercial front load operator [facility] ID on 08/30 and 08/31. will need exchange transfusion at [facility] if actively hemolyzing, parasite burden >10%, or hemodynamically unstable. Hemolytic anemia, thrombocytopenia - likely secondary to babesiosis - patient asymptomatic including signs/symptoms of anemia (fatigue, pallor) or thrombocytopenia (bleeding, petechiae), c/o melanotic stool, BRBPR, hematuria, epigastric pain - LDH elevated but stable - no change from 08/31 to 09/01 - Hgb stable and improving, platelets improving as well - continue to monitor symptoms, f/u morning CBC, LDH Transaminitis, improving - Tb 1.8, AST 157, ALT 63, Alk Phos 157 on admission - Tb 1.5, AST 189, ALT 101, Alk Phos 293 yesterday (08/31) - no abd pain - repeat CMP on 09/02 Lyme disease - doxycycline started empirically on 08/26 with equivocal lyme titer - lyme IgM Ab returned positive on western blot - treat for 10 days through 09/04 DVT ppx: amb ad carlos alberto FEN/GI: regular diet, pantoprazole PO BID Code Status: Full code Dispo: Med/Surg Admission and Anticipated Discharge Date Admission Date: August 26, 2020 Supervising Attestation Attending attestation Pt seen and examined in concert with Dr. Leal and St. Dr. Angel. In agreement with the documented findings as noted in the resident documentation with any exceptions or additions as noted here. Resting in chair with improving fatigue approaching baseline s/p abx therapy. On examination, S1/S2 nl RRR no MCG. CTAB. Abd NT/ND BS+ve. CNII-XII grossly intact. No apparent rashes/lesions. Babesiosis and lyme disease - atovaquone, azithromycin, doxycycline to complete course. Repeat CBC in AM as today was the first day of stability for this. Careful monitoring of parasite burden w/ transfer for exchg transfusion with increasing burden Hemolytic anemia w/ thrombocytopenia - stable LDH (trend daily) Transaminitis - improved, repeat for resolution following discharge or with any complication. Else see student/resident documentation as noted. Subjective Patient seated in chair. Feeling back to baseline. Denies fevers/chills, bleeding, abdominal pain. Good appetite and normal BM. Has not had a fever for over 48 hours. Review of Systems Review of Systems: All systems reviewed & are unremarkable except as noted in HPI & below Physical Exam Physical Exam: GENERAL: nad HEENT: conjunctiva without injection b/l, poor dentition CHEST: bl wheezes appreciated, no rhonchi or rales, normal respiratory effort CARDIOVASCULAR: heart regular rate and rhythm, no murmurs, gallops or rubs, no lower extremity edema ABD: nontender to palpation, nondistended, normal active bowel sounds SKIN: no rashes or suspicious lesions noted NEURO: PERRLA Results & Data ([facility]) Vital Signs (Past 12 Hours) Vital Signs Temp Pulse Pulse Resp BP Pulse Ox 09/01/20 07:50 36.6 C 64 20 111/56 L 92 08/31/20 23:28 36.6 C 77 18 104/67 95
[2020-09-02] MEDS: DOXYCYCLINE HYCLATE 100 MG in DEXTROSE 5% 100 ML IV SCH (01:59)
[2020-09-02 06:56] LABS: Hematocrit (blood only) 28.2 % (42-52); Hemoglobin 9.5 g/dL (14.0-18.0); Mean Corpuscular Hemoglobin 31.8 pg (25-34); Mean Corpuscular Hgb Conc 33.7 g/dL (32-36); Mean Corpuscular Volume 94.3 fL (80-100); Mean Platelet Volume 11.5 fL (7.4-10.4); Platelet Count 117 K/uL (130-400); RDW Coefficient of Variation 14.2 % (11.5-14.5); RDW Standard Deviation 48.5 fL (36.4-46.3); Red Blood Count 2.99 M/uL (4.7-6.1); White Blood Count 4.61 K/uL (4.8-10.8)
[2020-09-02 07:27] LABS: ALC (manual) 2.25 K/uL (1.2-3.4); ANC (manual) 1.68 K/uL (1.4-6.5); Eosinophils # (manual) 0.04 K/uL (0-0.5); Eosinophils % (manual) 0.9 %; Lymphocytes # (manual) 1.28 K/uL (1.2-3.4); Lymphocytes % (manual) 27.8 %; Monocytes # (manual) 0.64 K/uL (0.11-0.59); Monocytes % (manual) 13.9 %; Neutrophils # (manual) 1.68 K/uL (1.4-6.5); Neutrophils % (manual) 36.5 %; Polychromasia 1+; Reactive Lymphocytes # (manual) 0.96 K/uL; Reactive Lymphocytes % (manual) 20.9 %
[2020-09-02 07:40] LABS: Albumin Globulin Ratio 0.5 (0.9-2); Albumin Level 2.5 gm/dl (3.4-5.0); BUN Creatinine Ratio 14.8 (10-20); Calcium 8.4 mg/dl (8.5-10.1); Creatinine Clr Calc Pharmacy 129.2 ml/min; Est GFR (African American) 119.4 ml/min; Globulin 4.9 gm/dl (2.5-4.0); Potassium 3.8 mmol/L (3.5-5.1); Total Protein 7.4 gm/dl (6.4-8.2)
[2020-09-02] MEDS: PANTOprazole 40 MG TAB PO SCH (08:42)
[2020-09-02] MEDS: NYSTATIN SUSP 500,000 U/5 ML UDC PO SCH (08:43)
[2020-09-02] MEDS: ADVANCED PROBIOTIC 1250 MG CAPSULE PO SCH (08:43)
[2020-09-02] MEDS: AZITHROMYCIN 250 MG TAB PO SCH (08:43)
[2020-09-02] MEDS: ATOVAQUONE 750 MG/5 ML UDC PO SCH (08:44)
--- NOTE | 2020-09-02 08:52 | Med Student Discharge Summary ---
Date of Service September 02, 2020 Admission HPI Per Admitting Provider 60 y/o M who denies any active medical issues. Initially with dental pain, then fevers, malaise, gen aches/pains, nausea and poor intake. The pt thought he may have an abscess and presented to the ER therefore. Although a small abscess was confirmed on CT, labs were more consistent with a systemic process, demonstrating mild leukopenia, mild anemia, thrombocytopenia with a platelet count of 20, hyponatremia and mild transaminitis. A peripheral blood smear subsequently confirmed babesiosis, while initial Lyme antibodies are equivocal. Anaplasma studies are pending. A CT of the face demonstrated a small periapical lucency at ADA 4 with cortical breakthrough along the buccal surface and an adjacent 1.8 x 0.6 cm soft tissue abscess. Admission Exam (Per Admitting) Constitutional General: Pale, clammy, middle-aged M, AAO x 3, no distress ENT: + thrush, poor dentition Eyes: KODAK, EOMI Head and neck: Normocephalic, atraumatic, No JVD, neck is supple. 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 Babesiosis: - Babesiosis was confirmed on parasite blood smear, peripheral smear, and PCR - Atovaquone and azithromycin treatment was started on 08/26. He will continue through 09/04 for total 9 day course. - Repeat blood smear 08/29 showed parasite burden 2 - 4.9%. His case was discussed with cardiovascular surgeon Jac NAIR on 08/30 and 08/31. Exchange transfusion at [facility] would be needed if actively hemolyzing, parasite burden >10%, or hemodynamically unstable, which he was not. -Patient developed thrombocytopenia and a hemolytic anemia (elevated LDH), but remained asymptomatic (no bleeding, petechiae, melanotic stool, hematuria, epigastric pain). Hgb stabilized and platelets and WBCs are improving as well. - Patient also developed transaminitis, which has been improving. Likely this is secondary to babesiosis as it has been resolving with treatment of babesiosis. - Repeat CBC and CMP ordered for 1 week. Counseled patient to have his blood drawn 1-2 days before follow-up appointment with PCP in 1 week. Lyme disease - Initial lyme titer was equivocal but IgM Ab confirmed on western blot. - Doxycycline started on 08/26. He will continue treatment through 09/04 for a total 10 day course Tobacco use: - Patient has a 20+ ppd history and has been trying to quite. He previously cut down from a pack a day to a pack a week. He has been abstinent for the past ~2 weeks. - Counseled patient and he presently in the determination/action stage Dental abscess: -Head CT was completed in the ED and showed a small abscess without evidence of cellulitis. Patient was on doxycycline for Lyme disease and remained asymptomatic during hospitalization, so additional antibiotic or in-hospital dental consult was not ordered. -Patient is already established with an outpatient dentist. He was advised patient to schedule to follow-up after discharge. Oral thrush: - Oral thrush was noted on admission. Patient was treated with nystatin mouth wash and it resolved. Discharge Plan Discharge Items Patient Disposition: Home - Self-Care Reason For Visit: FEBRILE ILLNESS Discharge Diagnosis: Babesiosis, lyme Activity: Resume your previous activity Non-emergency contact: Primary Care Provider Call non-emergency contact if: you have any medication questions, your symptoms worsen and you have a fever Follow-up/Referrals: Melvin Workman III, CRNP [Primary Care Provider] - 09/10/20 9:20 am (Patient needs CBC prior to appointment - patient has been provided with paper script for CBC with instruction to have this drawn 1-2 days prior to appointment) Diet: Regular Addtl Attending Provider Instructions: You were admitted to the hospital for babesiosis and Lyme, which are both tick- borne illnesses. You were treated with antibiotics called atovaquone, azithromycin, and doxycycline. A discharge summary will be sent to your primary care physician to ensure continuity of care. Please bring this discharge summary with you to your next office appointment so that your provider can review it at that time. Follow-up appointments: Make a follow-up appointment with your PCP within the next week. It is very important that you follow up with them shortly after discharge from the hospital. Keep all your follow-up appointments as already scheduled. If you cannot make an appointment, notify your provider. Medications: Your medication list has been reviewed and reconciled upon discharge to ensure accuracy and continuity of care. An updated list of all your medications is included with your hospital discharge paperwork. Please review this list closely, and make note of any changes. * We sent a new medication called doxycycline to your pharmacy. Take doxycycline (100mg) one capsule twice daily for 2.5 more days (one in the evening on 09/02, then one in the morning and one at night on 09/03 and 09/04). * We sent a new medication called atovaquone to your pharmacy. Take atovaquone (750mg/5mL) 5mL twice daily for 2.5 more days (one 5mL dose the evening on 09/02, then a 5mL dose in the morning and a 5mL dose at night on 09/03 and 09/04). * We sent a new medication called azithromycin to your pharmacy. Take azithromycin (250mg) one tablet daily for 2 more days (one on 09/03 and one on 09/04). Take your medications as instructed; do not skip a dose of your medicines. Make sure all of your doctors know every medicine you are taking (including zusa-ajn-sbvrxid medicines, vitamins, and supplements). Call your primary care provider before taking any new medicines (including dgak-bej-pifgdol medicines, vitamins, and supplements), because some of these may interact with your current medications, or may make your symptoms worse. Tell your primary care provider if you cannot afford your medications. CONTACT YOUR PRIMARY CARE PROVIDER if you experience any of the following: Fever, chills, rash Fatigue Difficulty following your treatment plan, or difficulty taking medications CALL 911 OR GO TO THE EMERGENCY DEPARTMENT if you experience any of the following: Sudden, severe abdominal pain or nausea/vomiting Unexplained bleeding Severe chest pain, or chest pain that radiates (moves) to your jaw or arm Sudden, severe shortness of breath or difficulty breathing Thank you for allowing us to participate in your care. Pending Studies at Discharge: No Stand-Alone Forms: My [facility] Medications and DC Order Prescriptions: New doxycycline hyclate 100 mg capsule 100 mg PO BID Qty: 5 RF: 0 azithromycin 250 mg tablet 250 mg PO DAILY 2 Days Qty: 2 RF: 0 atovaquone 750 mg/5 mL suspension 750 mg PO BID 3 Days Qty: 25 RF: 0 Continued nicotine (polacrilex) 4 mg gum 4 mg buccal Q2H PRN (Reason: nicotine cravings) Qty: 100 RF: 0 Discharge Orders: Discharge Order (Routine); Ordered 09/02/20 Ordered By: Mani Nj/Other Patient Handouts: Tick Bites Admission Data Admit Date/Time: 08/26/20 11:56 Attending Provider: Nael Abbott Admit Provider: Kemal Bejarano Primary Care Provider: Melvin Workman III Other Providers: Kemal Bejarano ; Leodan Chilel ; Cash Wright ; Sony Enriquez I. ; Errol Wiley II ; Carmelita Hussein ; Ryan Kirby Other Interventions: Discharge Summary Assessment (RN) Last Done: 09/02/20 10:59 Supervising Attestation Attending attestation Pt seen and examined in concert with Dr. Angel. In agreement with the documented findings as noted in the resident documentation with any exceptions or additions as noted here. Returned to baseline on current therapy and feeling well. On examination, S1/S2 nl RRR no MCG. CTAB. Abd NT/ND BS+ve Babesiosis and Lyme disease - to complete course of therapy as noted - counseling and instructions re: worsening/changing sx, recurrence, need for follow up and potential complications following abx course. Else see resident documentation as noted. Total attending time spent on this case on the day of discharge 40 minutes. Discharge Exam GENERAL: nad HEENT: conjunctiva without injection b/l, poor dentition CHEST: bl wheezes appreciated, no rhonchi or rales, normal respiratory effort CARDIOVASCULAR: heart regular rate and rhythm, no murmurs, gallops or rubs, no lower extremity edema ABD: nontender to palpation, nondistended, normal active bowel sounds SKIN: no rashes or suspicious lesions noted NEURO: PERRLA
--- NOTE | 2020-09-14 23:42 | Billing Data ---
Date of Service August 30, 2020 Coding Level of Care Code 13214 Subseq Hosp Care Lvl 2
--- NOTE | 2020-09-16 13:47 | Billing Data ---
Date of Service August 31, 2020 Coding Level of Care Code 34890 Subseq Hosp Care Lvl 2
== END 2020-09-02 12:43 | disposition home or self-care (01) | DRG 868 ==
LOC: ED 09:04 → SUATTDRO 11:56 → 3N 11:56
DX: E86.1 Hypovolemia; F17.210 Nicotine dependence, cigarettes, uncomplicated; D69.6 Thrombocytopenia, unspecified; Z83.3 Family history of diabetes mellitus; D59.4 Other nonautoimmune hemolytic anemias; B37.0 Candidal stomatitis; R74.01 Elevation of levels of liver transaminase levels; B60.00 Babesiosis, unspecified; E87.1 Hypo-osmolality and hyponatremia; K04.7 Periapical abscess without sinus; A69.20 Lyme disease, unspecified

== ENCOUNTER 2022-02-27 12:51 | Inpatient (IN) ==
[2022-02-27] MEDS ORDERED: CEFEPIME 2,000 MG/20 ML VIAL IV STA (13:51)
--- NOTE | 2022-02-27 14:00 | Emergency Department Note ---
Impression & Plan Cellulitis, Rash, Failure of outpatient treatment ED Provider Note NAME: CATHI BEAR AGE: 62 SEX: M : 1960 ARRIVES VIA: Walk-In INFORMANT: [Patient] ED PROVIDER(S): [Jhon Sesay MD] CHIEF COMPLAINT: Rash HISTORY OF PRESENT ILLNESS: The patient is a 62-year-old male who states that for at least 3 weeks, he has had a rash. The rash started on his left leg. He saw his family doctor's office and was placed on Keflex and Silvadene. He got somewhat better but since the antibiotics have ended, the rash is worse. The rash seems to have spread now to his upper extremities and also the right lower extremity. The rash does itch at times. He has not noticed a fever or vomiting. No chest pain or shortness of breath. He has no history of skin issues like this previou sly PMHx/PSHx: See Below SOCIAL HISTORY: See Below. PHYSICAL EXAM: GENERAL: Patient is in no acute distress. HEENT: No acute trauma, normocephalic atraumatic, mucous membranes moist, no nasal congestion. NECK: No stridor, no adenopathy, no meningismus, trachea is midline. LUNGS: Wheezing bilaterally, no crackles, no respiratory distress HEART: Without murmurs gallops or rubs, regular rate and rhythm. ABDOMEN: Soft, nontender, bowel sounds positive, no peritonitis. EXTREMITIES: No cyanosis or edema, mild bilateral pedal edema. NEUROLOGIC: Oriented x 3, no acute motor or sensory deficits, no focal weakness. SKIN: Patient has an erythematous, confluent, blanching somewhat raised rash on the upper extremities and both lower extremities. Patient has what appears to be a secondary cellulitis in the area of the left lower extremity that extends from the ankle to the knee. There is warmth in the left lower extremity. Some skin has sloughed off the anterior aspect of the left lower extremity. DIFFERENTIAL DIAGNOSIS: Cellulitis, allergic reaction, psoriasis, contact dermatitis, bacteremia, sepsis, electrolyte balance, among others. EMERGENCY DEPARTMENT COURSE/PROCEDURES: Prior/Outside records reviewed: Previous primary care visit reviewed. MEDICAL DECISION MAKING: There is no leukocytosis or concerning anemia. Platelet count slightly low at 121. There was no coagulopathy. No renal failure or significant electrolyte abnormality. No concerning liver enzyme elevation. Lactic acid level was not elevated making severe sepsis less likely. On exam, the patient had an extremity rash with a secondary left lower cellulitis/infection. Patient received IV cefepime as antibiotic coverage. The patient deserves a hospital stay. He has failed outpatient treatment. I believe his rash led to some skin breakdown which then led to the cellulitis. The cause for the rash is still unclear. I spoke with the patient and case management, the on-call hospitalist was consulted. 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 Transaminitis Family History Mother Colorectal cancer Brother GERTRUDIS (obstructive sleep apnea) Pituitary disease Renal failure Uncle Diabetes Hypertension Father , Secondary to asbestosis Asbestosis Denies family history of Ovarian cancer Prostate cancer Myocardial infarction Breast cancer Social History Smoking Status: Current every day smoker Tobacco Type: Cigarettes Age Started Using Tobacco: 14; packs per day: 0.5; Cigarettes Per Day: 10; Second Hand Exposure: Yes; Hx Alcohol Use: Yes Alcohol type: hard liquor Alcohol Intake Frequency: 2-3 x/Week Hx Substance Use: No Preferred Language: South Korean Communication Ability: Effective Visual Impairment: No Limitations Hearing Ability: Normal Pigment Processor Required: No Beliefs That Will Affect Care: None marital status: Single Current Living Situation: Spouse current occupational status: employed current occupation: [employer] How many Children do You have: 1 Feels Safe at Home: Yes Childhood Exposure to Second-Hand Smoke: Yes caffeine: Yes during the past year weight has: remained stable Dental Care, Regularly: Yes Physical Activity Frequency: Daily Seatbelt Use: always Sunscreen Use: Yes Assistive Devices: Glasses Allergies Allergies Allergy/AdvReac Type Severity Reaction Status Date / Time No Known Allergies Allergy Verified 02/09/22 16:00 Home Meds Previous Rx's Medication Instructions Recorded atorvastatin 10 mg tablet 10 mg PO HS #90 tabs 10/21/21 silver sulfadiazine 1 % topical 1 applic topical BID #400 grams 10/21/21 cream (Silvadene) cephalexin 500 mg capsule 500 mg PO TID 10 days #30 caps 02/09/22 nicotine (polacrilex) 4 mg gum 4 mg buccal Q2H PRN nicotine 02/09/22 cravings #100 ea Results & Data (ED) Vital Signs Vital Signs - 24 hr 02/27/22 12:59 02/27/22 14:57 Temperature 36.7 C Temperature Source Temporal Artery Scan Pulse Rate 104 H Pulse Rate [Finger] 63 Pulse Rhythm Regular Pulse Strength Normal Respiratory Rate 20 18 Respiratory Effort / Characteristics Non-Labored Spontaneous Respiratory Depth Normal Respiratory Pattern Regular Blood Pressure 161/92 H Blood Pressure [Left Arm] 135/88 Blood Pressure Mean 115 Blood Pressure Mean [Left Arm] 103 Blood Pressure Position Sitting Pulse Oximetry 96 95 Oxygen Delivery Method Room Air Sepsis Recent Fever Within 48 Hours No Sepsis New/Unexplained Change in Mental Status No Sepsis Action Taken by Nursing No Action Required Home Medications Current Medication List: was personally reviewed by me Laboratory Data Attestation: I reviewed the patient's lab results. 02/27/22 14:00 02/27/22 14:00 Lab Results 02/27/22 02/27/22 02/27/22 Range/Units 14:00 14:00 14:00 WBC 5.20 (4.8-10.8) K/ul RBC 4.81 (4.63-6.08) M/uL Hgb 16.8 (14.0-18.0) g/dl Hct 47.7 (40.1-51.0) % MCV 99.2 (80.0-100.0) fL MCH 34.9 H (25.0-34.0) pg MCHC 35.2 (32.0-36.0) g/dL RDW Std Deviation 42.6 (36.4-46.3) fL RDW Coeff of Gokul 11.6 (11.5-14.5) % Plt Count 121 L (130-400) K/uL MPV 9.9 (9.4-12.4) fL Immature Gran % (Auto) 0.2 % Neut % (Auto) 68.5 % Lymph % (Auto) 16.7 % Towns % (Auto) 11.9 % Eos % (Auto) 2.3 % Baso % (Auto) 0.4 % Neut # (Auto) 3.56 (1.4-6.5) K/uL Lymph # (Auto) 0.87 L (1.2-3.4) K/uL Towns # (Auto) 0.62 (0.24-0.82) K/uL Eos # (Auto) 0.12 (0-0.50) K/uL Baso # (Auto) 0.02 (0-0.2) K/uL Immature Gran # (Auto) 0.01 (0.00-0.02) K/uL PT (9.0-12.0) Seconds INR (0.9-1.1) APTT (21.0-31.0) Seconds PTT Ratio Sodium 137 (136-145) mmol/L Potassium 4.2 (3.5-5.1) mmol/L Chloride 101 (98-107) mmol/L Carbon Dioxide 29 (21-32) mmol/L Anion Gap 7 (3-11) BUN 13 (6-23) mg/dl Creatinine 0.73 (0.6-1.4) mg/dl Est Cr Clr Drug Dosing 115.5 ml/min Est GFR ( Amer) 113.6 ml/min Est GFR (Non-Af Amer) 98.0 ml/min BUN/Creatinine Ratio 17.8 (10-20) Glucose 103 H (70-99(Fasting)) mg/dl Lactate 0.9 (0.4-2.0) mmol/L Calcium 9.9 (8.5-10.1) mg/dl Total Bilirubin 0.9 (0.2-1.0) mg/dl AST 54 H (13-39) U/L ALT 42 (7-52) U/L Alkaline Phosphatase 71 (34-104) U/L Total Protein 8.6 H (6.0-8.3) gm/dl Albumin 4.4 (3.4-5.0) gm/dl Globulin 4.2 H (2.5-4.0) gm/dl Albumin/Globulin Ratio 1.0 (0.9-2) 02/27/22 Range/Units 14:00 WBC (4.8-10.8) K/ul RBC (4.63-6.08) M/uL Hgb (14.0-18.0) g/dl Hct (40.1-51.0) % MCV (80.0-100.0) fL MCH (25.0-34.0) pg MCHC (32.0-36.0) g/dL RDW Std Deviation (36.4-46.3) fL RDW Coeff of Gokul (11.5-14.5) % Plt Count (130-400) K/uL MPV (9.4-12.4) fL Immature Gran % (Auto) % Neut % (Auto) % Lymph % (Auto) % Towns % (Auto) % Eos % (Auto) % Baso % (Auto) % Neut # (Auto) (1.4-6.5) K/uL Lymph # (Auto) (1.2-3.4) K/uL Towns # (Auto) (0.24-0.82) K/uL Eos # (Auto) (0-0.50) K/uL Baso # (Auto) (0-0.2) K/uL Immature Gran # (Auto) (0.00-0.02) K/uL PT 10.6 (9.0-12.0) Seconds INR 1.0 (0.9-1.1) APTT 27.6 (21.0-31.0) Seconds PTT Ratio 1.0 Sodium (136-145) mmol/L Potassium (3.5-5.1) mmol/L Chloride (98-107) mmol/L Carbon Dioxide (21-32) mmol/L Anion Gap (3-11) BUN (6-23) mg/dl Creatinine (0.6-1.4) mg/dl Est Cr Clr Drug Dosing ml/min Est GFR ( Amer) ml/min Est GFR (Non-Af Amer) ml/min BUN/Creatinine Ratio (10-20) Glucose (70-99(Fasting)) mg/dl Lactate (0.4-2.0) mmol/L Calcium (8.5-10.1) mg/dl Total Bilirubin (0.2-1.0) mg/dl AST (13-39) U/L ALT (7-52) U/L Alkaline Phosphatase (34-104) U/L Total Protein (6.0-8.3) gm/dl Albumin (3.4-5.0) gm/dl Globulin (2.5-4.0) gm/dl Albumin/Globulin Ratio (0.9-2) Administered Medications Discontinued Medications Cefepime HCl (Maxipime) 2,000 mg in 20 mls @ 5 mls/min IV NOW STA; Protocol Stop: 02/27/22 13:54 Last Admin: 02/27/22 14:55 Dose: 5 mls/min Documented By: CANDICE Discharge Plan Visit Data Chief Complaint: Rash Stated Complaint: BILATERAL LEG RASH ED Provider: Jhon Sesay Discharge Problem: Cellulitis, Rash, Failure of outpatient treatment Patient Disposition: Admitted As Inpatient Condition: Good Forms Stand Alone Forms: My [facility] Prescriptions Prescriptions: No Action silver sulfadiazine [Silvadene] 1 % cream 1 applic topical BID Qty: 400 0RF Rx Instructions: apply a 1.5 mm thickness atorvastatin 10 mg tablet 10 mg PO HS Qty: 90 3RF nicotine (polacrilex) 4 mg gum 4 mg buccal Q2H PRN (Reason: nicotine cravings) Qty: 100 2RF cephalexin 500 mg capsule 500 mg PO TID 10 Days Qty: 30 0RF Referrals Referrals: Melvin Workman III, CRNP [Primary Care Provider] -
[2022-02-27 14:20] LABS: Basophils # (auto) 0.02 K/uL (0-0.2); Basophils % (auto) 0.4 %; Eosinophils # (auto) 0.12 K/uL (0-0.50); Eosinophils % (auto) 2.3 %; Hematocrit (blood only) 47.7 % (40.1-51.0); Hemoglobin 16.8 g/dl (14.0-18.0); Immature Granulocytes # (auto) 0.01 K/uL (0.00-0.02); Immature Granulocytes % (auto) 0.2 %; Lymphocytes # (auto) 0.87 K/uL (1.2-3.4); Lymphocytes % (auto) 16.7 %; Mean Corpuscular Hemoglobin 34.9 pg (25.0-34.0); Mean Corpuscular Hgb Conc 35.2 g/dL (32.0-36.0); Mean Corpuscular Volume 99.2 fL (80.0-100.0); Mean Platelet Volume 9.9 fL (9.4-12.4); Monocytes # (auto) 0.62 K/uL (0.24-0.82); Monocytes % (auto) 11.9 %; Neutrophils # (auto) 3.56 K/uL (1.4-6.5); Neutrophils % (auto) 68.5 %; Platelet Count 121 K/uL (130-400); RDW Coefficient of Variation 11.6 % (11.5-14.5); RDW Standard Deviation 42.6 fL (36.4-46.3); Red Blood Count 4.81 M/uL (4.63-6.08)
[2022-02-27 14:33] LABS: Partial Thromboplastin Time 27.6 Seconds (21.0-31.0); Prothrombin Time 10.6 Seconds (9.0-12.0)
[2022-02-27 14:41] LABS: Albumin Level 4.4 gm/dl (3.4-5.0); BUN Creatinine Ratio 17.8 (10-20); Bilirubin,Total 0.9 mg/dl (0.2-1.0); Calcium 9.9 mg/dl (8.5-10.1); Creatinine Clr Calc Pharmacy 115.5 ml/min; Est GFR (African American) 113.6 ml/min; Globulin 4.2 gm/dl (2.5-4.0); Potassium 4.2 mmol/L (3.5-5.1); Total Protein 8.6 gm/dl (6.0-8.3)
--- NOTE | 2022-02-27 15:05 | History & Physical Report ---
Date of Service February 27, 2022 Assessment & Plan (1) Rash: Plan: Left lower extremity cellulitis Suspect left lower extremity cellulitis superimposed on contact dermatitis with impaired skin integrity Initially improved on Keflex, but quickly worsened after cessation of therapy No purulence is appreciated, no leukocytosis, patient is without clinical signs of sepsis and hemodynamically stable Received empiric cefepime in ER. Continue Rocephin daily, add pseudomonal coverage if worsening. No purulence, will defer MRSA coverage at this time and follow. See photos and admitting H&P physical exam CRP ordered for trend Distal extremity rash, suspected irritant dermatitis. Patient with rash most prominent on left lower extremity but including right lower extremity and distal forearms bilaterally which has developed over the last 2-3 weeks Patient denied any new soaps, detergents, creams. 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 Defer betamethasone on left leg in the setting of cellulitis If not improving with irritant dermatitis treatment, consider biopsy and dermatology referral. Photos of initial rash placed in admitting H&P. History of transaminitis following babesiosis Trend LFTs Mild AST elevation, ALT and alk phos are normal Hyperproteinemia Total protein 8.6 with elevated globulin fraction. No weight loss.? Mild acute change in the setting of active infections, if persistently elevated despite resolution follow-up with electrophoresis. Trend. 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 Started on L leg 3-4 weeks ago. Rash spread to R leg, a little to thighs, and both arms by one week ago. Since then getting darker/redder, but not spreading. Intermittently slightly itchy. No pruritis at time of assessment. No attempted tx other than keflex and silver cream on L leg. L leg ~1.5 weeks ago got much more red and irritated with rubbing on pants, was tx with outpatient keflex/silvadine without improvement. Seemed like it improved a little, last abx dose was 5 days ago and seemed to immediately worsen again afterwards. +swelling L leg. No swelling in right leg. Patient has not had any other new medications. He denies any new soaps, detergents, creams, or other topical agents. 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 Denies other contacts. He denies any fever, chills, sweats, lightheadedness, dizziness, chest pain, chest pressure, difficulty breathing, wheezing, abdominal pain, nausea/vomiting. Medical History: Reviewed Medications: Reviewed Surgical History: Reviewed Allergies: Reviewed Social History: Current smoker, reduced to a pack per week denies patch. Intermittent social alcohol use, denies any history of binge drinking dependence or withdrawal. Code Status: Full code Allergies Allergy/AdvReac Type Severity Reaction Status Date / Time No Known Allergies Allergy Verified 02/09/22 16:00 Home Medications Medication Instructions Recorded Confirmed Type atorvastatin 10 mg tablet 10 mg PO HS #90 tabs 10/21/21 02/09/22 Rx silver sulfadiazine 1 % topical 1 applic topical BID #400 grams 10/21/21 02/09/22 Rx cream (Silvadene) cephalexin 500 mg capsule 500 mg PO TID 10 days #30 caps 02/09/22 02/09/22 Rx nicotine (polacrilex) 4 mg gum 4 mg buccal Q2H PRN nicotine 02/09/22 02/09/22 Rx cravings #100 ea Past Med/Surg History Medical History Acute hyponatremia Acute Lyme disease 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 Transaminitis Family History Mother Colorectal cancer Brother GERTRUDIS (obstructive sleep apnea) Pituitary disease Renal failure Uncle Diabetes Hypertension Father , Secondary to asbestosis Asbestosis Denies family history of Ovarian cancer Prostate cancer Myocardial infarction Breast cancer Social History Smoking Status: Current every day smoker Tobacco Type: Cigarettes Age Started Using Tobacco: 14; packs per day: 0.5; Cigarettes Per Day: 10; Second Hand Exposure: Yes; Hx Alcohol Use: Yes Alcohol type: hard liquor Alcohol Intake Frequency: 2-3 x/Week Hx Substance Use: No Preferred Language: Malay Communication Ability: Effective Visual Impairment: No Limitations Hearing Ability: Normal Photograph Developer Required: No Beliefs That Will Affect Care: None marital status: Single Current Living Situation: Spouse current occupational status: employed current occupation: [employer] How many Children do You have: 1 Feels Safe at Home: Yes Childhood Exposure to Second-Hand Smoke: Yes caffeine: Yes during the past year weight has: remained stable Dental Care, Regularly: Yes Physical Activity Frequency: Daily Seatbelt Use: always Sunscreen Use: Yes Assistive Devices: Glasses Review of Systems Review of Systems: All systems reviewed & are unremarkable except as noted in HPI & below Physical Exam Physical Exam: General: A&Ox3. NAD. Cooperative. HEENT: Atraumatic, normocephalic. Vision/hearing intact Pulm: CTAB A&P. -wheezes, -rales, -rhonchi. Symmetrical chest rise. No increased work of breathing. No respiratory distress. Cardiac: RRR, -mrg. Radial pulses intact and symmetrical. Abdominal: Nontender, nondistended, soft. BS present. Extremities: Blanching, erythematous intermittently but not currently pruritic patches without scale or purulence on the distal upper extremities bilaterally, right lower extremity, left lower extremity and left proximal thigh. See photos below. Left lower extremity is with asymmetrical erythema, warmth, swelling, and mild to tenderness to palpation. Results & Data Results & Data ([facility]) Vital Signs (Past 12 Hours) Vital Signs Temp Pulse Pulse Resp BP BP Pulse Ox 02/27/22 14:57 63 18 135/88 95 02/27/22 12:59 36.7 C 104 H 20 161/92 H 96 O2 Del Method 02/27/22 14:57 02/27/22 12:59 Room Air PG Care Time/CCT Total # of Minutes Spent Total Time Spent with Patient: Total time spent is greater than 50% in coordination of care (as documented) at patient's floor/unit and/or counseling patient: Coding Level of Care Code 57995 INT INP/OBS CARE 2/55MIN Diagnoses Rash R21 Left leg cellulitis L03.116
[2022-02-27] MEDS ORDERED: ACETAMINOPHEN 325 MG TAB PO PRN (18:22)
[2022-02-27] MEDS ORDERED: POLYETHYLENE (MIRALAX) 17 GM PACK PO PRN (18:22)
[2022-02-27] MEDS: BETAMETHASONE DIP AUG (DIPROLENE) 0.05% CR 15 GM TUBE EXT SCH (19:57)
[2022-02-27] MEDS: cefTRIAXone SODIUM 2,000 MG in DEXTROSE 5% 50 ML IV SCH (21:35)
[2022-02-28 07:28] LABS: Basophils # (auto) 0.02 K/uL (0-0.2); Basophils % (auto) 0.4 %; Eosinophils # (auto) 0.09 K/uL (0-0.50); Eosinophils % (auto) 1.7 %; Hematocrit (blood only) 42.5 % (40.1-51.0); Hemoglobin 14.9 g/dl (14.0-18.0); Lymphocytes # (auto) 1.05 K/uL (1.2-3.4); Mean Corpuscular Hemoglobin 34.7 pg (25.0-34.0); Mean Corpuscular Hgb Conc 35.1 g/dL (32.0-36.0); Mean Corpuscular Volume 98.8 fL (80.0-100.0); Mean Platelet Volume 10.2 fL (9.4-12.4); Monocytes # (auto) 0.97 K/uL (0.24-0.82); Monocytes % (auto) 18.5 %; Neutrophils # (auto) 3.11 K/uL (1.4-6.5); Neutrophils % (auto) 59.4 %; Platelet Count 123 K/uL (130-400); RDW Coefficient of Variation 11.7 % (11.5-14.5); RDW Standard Deviation 42.4 fL (36.4-46.3); White Blood Count 5.24 K/ul (4.8-10.8)
[2022-02-28 07:49] LABS: BUN Creatinine Ratio 20.5 (10-20); C Reactive Protein 1.43 mg/dl (0-0.5); Creatinine Clr Calc Pharmacy 108.1 ml/min; Est GFR (African American) 110.6 ml/min; Est GFR (Non-African American) 95.4 ml/min; Potassium 4.1 mmol/L (3.5-5.1)
--- NOTE | 2022-02-28 08:05 | Hospitalist Progress Note ---
Date of Service February 28, 2022 Assessment & Plan (1) Rash: Plan: Left lower extremity cellulitis Suspect left lower extremity cellulitis superimposed on dermatitis Initially improved on Keflex, but quickly worsened after cessation of therapy No purulence is appreciated, no leukocytosis, patient is without clinical signs of sepsis and hemodynamically stable Received empiric cefepime in ER. Continue Rocephin daily, add pseudomonal coverage if worsening. No purulence, will defer MRSA coverage at this time and follow. See photos in admitting H&P physical exam Distal extremity rash, suspected irritant dermatitis. Patient be placed on H2 mansoor and H1 antihistamine has had less same symptoms since initiating Betamethasone topical daily to right lower leg, and forearms. Defer betamethasone on left leg in the setting of cellulitis Photos of initial rash placed in admitting H&P. History of transaminitis following babesiosis Trend LFTs Mild AST elevation, ALT and alk phos are normal Hyperproteinemia Total protein 8.6 with elevated globulin fraction. No weight loss.? Mild acute change in the setting of active infections, if persistently elevated despite resolution follow-up with electrophoresis. Trend. DVT prophylaxis: Pharmacal prophylaxis deferred 2/2 thrombocytopenia, ambulate CODE STATUS: Full Disposition: Medical surgical Diet: Regular (2) Left leg cellulitis: Admission and Anticipated Discharge Date Admission Date: February 27, 2022 Subjective pts patient rash is receding still is most prominent on his lower extremities upper extremities are faded quite a bit. The left leg where he feels it initially began with cellulitis has receded in swelling and discomfort. Review of Systems Review of Systems: Mild distress and fatigue no headache, no visual changes no speech or swallowing issues no chest pain, pressure or palpitations no shortness of breath, cough or wheezes no abdominal pain, nausea or vomiting, diarrhea or constipation no dysuria, hematuria or frequency no focal joint pain thorax remedy swelling persist but patient says it is less than was on presentation no back pain, CVA tenderness or radicular pain Redness and tenderness of left lower leg is lessened according to patient's are still scaly area from initial infection and injury to skin no focal signs of weakness or numbness or altered sensation no complaints of anxiety or depression.. Physical Exam Physical Exam: The patient appeared well nourished and normally developed. Vital signs as documented. Head exam is normocephalic atraumatic Neck is without JVD, thyromegaly, or carotid bruits. Lungs are clear to auscultation, no focal loss of breath sounds Cardiac exam, Rhythm is regular.. No murmurs, rubs or gallops. Abdominal exam reveals normal bowel sounds, soft non tender, no masses Extremities are edematous bilaterally left greater than right receding nonblanchable maculopapular rash on his arms and legs Left lower extremity with some induration which is likely reminiscent from lower extremity infection Neurologic exam is alert and oriented, no focal loss of strength or sensation Skin is with nonblanchable rashes and improved cellulitis Psychologically is without concerns for anxiety or depression.. Results & Data Results & Data ([facility]) Vital Signs (Past 12 Hours) Vital Signs Temp Pulse Resp BP Pulse Ox O2 Del Method 02/28/22 07:19 98.4 F 65 16 147/89 H 94 Room Air 02/27/22 22:58 99.0 F 66 16 146/82 H 94 Room Air PG Care Time/CCT Total # of Minutes Spent Total Time Spent with Patient: Total time spent is greater than 50% in coordination of care (as documented) at patient's floor/unit and/or counseling patient: Coding Level of Care Code 19586 SUB INP/OBS CARE 2/35MIN Diagnoses Rash R21 Left leg cellulitis L03.116
[2022-02-28] MEDS: CETIRIZINE HCL 10 MG TABLET PO SCH (09:17)
[2022-02-28] MEDS: BETAMETHASONE DIP AUG (DIPROLENE) 0.05% CR 15 GM TUBE EXT SCH (09:18)
[2022-02-28] MEDS: FAMOTIDINE 20 MG TAB PO SCH ×2 (09:18→21:10)
[2022-02-28] MEDS: cefTRIAXone SODIUM 2,000 MG in DEXTROSE 5% 50 ML IV SCH (21:11)
[2022-03-01] MEDS: FAMOTIDINE 20 MG TAB PO SCH ×2 (10:42→21:03)
[2022-03-01] MEDS: BETAMETHASONE DIP AUG (DIPROLENE) 0.05% CR 15 GM TUBE EXT SCH (10:45)
[2022-03-01] MEDS: CETIRIZINE HCL 10 MG TABLET PO SCH (12:00)
[2022-03-01] MEDS ORDERED: IPRATROPIUM BROMIDE/ALBUTEROL respimat INH INH SCH (13:00)
[2022-03-01] MEDS: IPRATROPIUM BROMIDE HFA INHALER INH SCH ×2 (15:16→19:34)
[2022-03-01] MEDS: ALBUTEROL HFA 8 GM INHALER INH SCH ×2 (15:16→19:33)
--- NOTE | 2022-03-01 18:10 | Hospitalist Progress Note ---
Date of Service March 01, 2022 Assessment & Plan (1) Rash: Plan: Left lower extremity cellulitis Suspect left lower extremity cellulitis superimposed on dermatitis Initially improved on Keflex, but quickly worsened after cessation of therapy No purulence is appreciated, no leukocytosis, patient is without clinical signs of sepsis and hemodynamically stable Received empiric cefepime in ER. Continue Rocephin daily, add pseudomonal coverage if worsening. No purulence, will defer MRSA coverage at this time and follow. See photos in admitting H&P physical exam Distal extremity rash, suspected irritant dermatitis. Patient be placed on H2 mansoor and H1 antihistamine has had less same symptoms since initiating stop Betamethasone topical Photos of initial rash placed in admitting H&P. History of transaminitis following babesiosis Mild AST elevation, ALT and alk phos are normal Hyperproteinemia Total protein 8.6 with elevated globulin fraction. DVT prophylaxis: Pharmacal prophylaxis deferred 2/2 thrombocytopenia, ambulate CODE STATUS: Full Disposition: Medical surgical Diet: Regular (2) Left leg cellulitis: Admission and Anticipated Discharge Date Admission Date: March 01, 2022 Subjective pts patient rash is receding still is most prominent on his lower extremities upper extremities are faded quite a bit. The left leg where he feels it initially began with cellulitis has receded in swelling and discomfort. Review of Systems Review of Systems: Mild distress and fatigue no headache, no visual changes no speech or swallowing issues no chest pain, pressure or palpitations no shortness of breath, cough or wheezes no abdominal pain, nausea or vomiting, diarrhea or constipation no dysuria, hematuria or frequency no focal joint pain no back pain, CVA tenderness or radicular pain Redness and tenderness of left lower leg continues to lessen, still scaly area from initial infection and injury to skin no focal signs of weakness or numbness or altered sensation no complaints of anxiety or depression.. Physical Exam Physical Exam: The patient appeared well nourished and normally developed. Vital signs as documented. Head exam is normocephalic atraumatic Neck is without JVD, thyromegaly, or carotid bruits. Lungs are clear to auscultation, no focal loss of breath sounds Cardiac exam, Rhythm is regular.. No murmurs, rubs or gallops. Abdominal exam reveals normal bowel sounds, soft non tender, no masses Extremities are much less edematous bilaterally left greater than right continues receding nonblanchable maculopapular rash on his arms and legs Left lower extremity with some induration which is likely reminiscent from lower extremity infection Neurologic exam is alert and oriented, no focal loss of strength or sensation Skin is with nonblanchable rashes and improved cellulitis Psychologically is without concerns for anxiety or depression.. Results & Data Results & Data ([facility]) Vital Signs (Past 12 Hours) Vital Signs Temp Pulse Resp BP Pulse Ox O2 Del Method 03/01/22 15:20 60 18 95 Room Air 03/01/22 14:58 Room Air 03/01/22 14:37 98.2 F 62 17 137/84 98 Room Air 03/01/22 07:39 98.6 F 60 17 141/81 H 96 Room Air PG Care Time/CCT Total # of Minutes Spent Total Time Spent with Patient: Total time spent is greater than 50% in coordination of care (as documented) at patient's floor/unit and/or counseling patient: Coding Level of Care Code 61368 SUB INP/OBS CARE 2/35MIN Diagnoses Rash R21 Left leg cellulitis L03.116
[2022-03-01] MEDS: cefTRIAXone SODIUM 2,000 MG in DEXTROSE 5% 50 ML IV SCH (21:03)
[2022-03-02 06:04] LABS: Basophils # (auto) 0.03 K/uL (0-0.2); Basophils % (auto) 0.6 %; Eosinophils # (auto) 0.09 K/uL (0-0.50); Eosinophils % (auto) 1.7 %; Hemoglobin 15.6 g/dl (14.0-18.0); Immature Granulocytes # (auto) 0.01 K/uL (0.00-0.02); Immature Granulocytes % (auto) 0.2 %; Lymphocytes # (auto) 1.46 K/uL (1.2-3.4); Lymphocytes % (auto) 28.1 %; Mean Corpuscular Hemoglobin 34.4 pg (25.0-34.0); Mean Corpuscular Hgb Conc 34.7 g/dL (32.0-36.0); Mean Corpuscular Volume 99.1 fL (80.0-100.0); Mean Platelet Volume 10.4 fL (9.4-12.4); Monocytes # (auto) 0.92 K/uL (0.24-0.82); Monocytes % (auto) 17.7 %; Neutrophils # (auto) 2.68 K/uL (1.4-6.5); Neutrophils % (auto) 51.7 %; Platelet Count 128 K/uL (130-400); RDW Coefficient of Variation 11.2 % (11.5-14.5); RDW Standard Deviation 40.9 fL (36.4-46.3); Red Blood Count 4.54 M/uL (4.63-6.08); White Blood Count 5.19 K/ul (4.8-10.8)
[2022-03-02 06:19] LABS: Albumin Globulin Ratio 1.1 (0.9-2); Albumin Level 4.1 gm/dl (3.4-5.0); BUN Creatinine Ratio 19.3 (10-20); Bilirubin,Total 0.7 mg/dl (0.2-1.0); Calcium 9.6 mg/dl (8.5-10.1); Creatinine Clr Calc Pharmacy 95.8 ml/min; Est GFR (African American) 105.2 ml/min; Est GFR (Non-African American) 90.8 ml/min; Globulin 3.8 gm/dl (2.5-4.0); Potassium 4.5 mmol/L (3.5-5.1); Total Protein 7.9 gm/dl (6.0-8.3)
[2022-03-02] MEDS: ALBUTEROL HFA 8 GM INHALER INH SCH ×3 (07:14→14:13)
[2022-03-02] MEDS: IPRATROPIUM BROMIDE HFA INHALER INH SCH ×3 (07:14→14:14)
[2022-03-02] MEDS: FAMOTIDINE 20 MG TAB PO SCH (07:39)
[2022-03-02] MEDS: CETIRIZINE HCL 10 MG TABLET PO SCH (07:39)
[2022-03-02] MEDS ORDERED: AMMONIUM LACTATE 12% LOTION 225 GM BTL EXT ONE (15:56)
--- NOTE | 2022-03-02 16:12 | Discharge Summary ---
Date of Service March 02, 2022 Admission HPI Per Admitting Provider Kana hernandez is a 62-year-old male past medical history of thrombocytopenia with admitting platelets of 121, last 176 RN CCU Leukocytosis Hemoglobin 16.8 Sodium normal Potassium normal Creatinine with normal baseline, 0.73 on admission Admitting glucose 103 Chronic mild transaminitis, AST 54 ALT and alk phos normal on admission, total protein is elevated at 8.6, globulin 4.2, tryptase pending Per patient: Leg swelling. Started on L leg 3-4 weeks ago. Rash spread to R leg, a little to thighs, and both arms by one week ago. Since then getting darker/redder, but not spreading. Intermittently slightly itchy. No pruritis at time of assessment. No attempted tx other than keflex and silver cream on L leg. L leg ~1.5 weeks ago got much more red and irritated with rubbing on pants, was tx with outpatient keflex/silvadine without improvement. Seemed like it improved a little, last abx dose was 5 days ago and seemed to immediately worsen again afterwards. +swelling L leg. No swelling in right leg. Patient has not had any other new medications. He denies any new soaps, detergents, creams, or other topical agents. 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 Denies other contacts. He denies any fever, chills, sweats, lightheadedness, dizziness, chest pain, chest pressure, difficulty breathing, wheezing, abdominal pain, nausea/vomiting. Medical History: Reviewed Medications: Reviewed Surgical History: Reviewed Allergies: Reviewed Social History: Current smoker, reduced to a pack per week denies patch. Intermittent social alcohol use, denies any history of binge drinking dependence or withdrawal. Code Status: Full code Principal Diagnosis contact dermatitis secondary infection Discharge Exam Leg was debrided on 03/02. The area was denuded but looks to be in good condition and is erythematous with some wrinkling and minor open areas from cracking. Remainder of his maculopapular rash is receding with exception of his legs being the most prominent. But his upper arms from a 7 normal condition Discharge Data Allergies Allergy/AdvReac Type Severity Reaction Status Date / Time No Known Allergies Allergy Verified 02/27/22 16:20 Consultations 02/27/22 14:54 ED Decision to Admit Stat Hospital Course (1) Rash: Patient be on Lac-Hydrin twice daily after washing with gentle soap and water he has a follow-up appointment with wound care clinic made for Tuesday the . Patient will continue with famotidine and sertraline (2) Left leg cellulitis: Patient be home on cefdinir to complete 10 additional days Total Time Total Time Spent Total Time Spent (In Minutes): Discharge 30 including 2 independent visits on this day of discharge Discharge Plan Discharge Items Patient Disposition: Home - Self-Care Reason For Visit: lle cellulitis, ?contact dermatitis Discharge Diagnosis: left lower extremity cellulitis dermatitis Condition on Discharge: Good Activity: Per Instructions section Activity Comment: when returning to work take measures to avoid repeat contact to substance Non-emergency contact: Primary Care Provider Call non-emergency contact if: your symptoms worsen Follow-up/Referrals: Melvin Workman III, CRNP [Primary Care Provider] - Ester Angulo DO, FACEP [Physician] - Diet: Regular Addtl Attending Provider Instructions: please take medications prescribed until seen by your primary care please follow up at the wound clinic 8 am Tuesday03/05/[address] [place] [address] wash your leg with baby wash daily, pat dry and apply the cream, apply the cream on other time in a 24 hour period Pending Studies at Discharge: No Stand-Alone Forms: My [facility] Conj[facility], Work/School Release, Smoking Cessation Medications and DC Order Prescriptions: New cetirizine 10 mg Tablet 10 mg PO QAM Qty: 10 0RF famotidine 20 mg Tablet 20 mg PO BID Qty: 20 0RF cefdinir 300 mg capsule 300 mg PO BID 10 Days Qty: 14 0RF ammonium lactate 12 % cream 1 applic topical BID Qty: 280 0RF Continued atorvastatin 10 mg tablet 10 mg PO HS Qty: 90 3RF nicotine (polacrilex) 4 mg gum 4 mg buccal Q2H PRN (Reason: nicotine cravings) Qty: 100 2RF Discharge Orders: Discharge Order (Routine); Ordered 03/02/22 Ordered By: Oswald Gotti Admission Data Admit Date/Time: 03/01/22 12:06 Attending Provider: Oswald Gotti Admit Provider: Abundio Howard Primary Care Provider: Melvin Workman III Other Providers: Abundio Howard Coding Level of Care Code HOSP INP/OBS DISCH >30 MIN Diagnoses Rash R21 Left leg cellulitis L03.116
[2022-03-02] MEDS ORDERED: AMMONIUM LACTATE 12% LOTION 225 GM BTL EXT SCH (21:00)
== END 2022-03-02 17:34 | disposition home or self-care (01) | DRG 603 ==
LOC: 3E 12:51 → ED 12:51 → SUATTDRO 15:36 → 3E 17:38

== ENCOUNTER 2024-04-30 15:40 | Inpatient (IN) ==
[2024-04-30] MEDS: dilTIAZem HCl 5 MG/ML 5 ML VIAL IV ONE (15:52)
[2024-04-30] MEDS: MAGNESIUM SULFATE 1GM / D5W BAG IV ONE (15:55)
[2024-04-30] MEDS: MAGNESIUM SULFATE / D5W 1 GM/100 ML BAG IV STA (15:55)
--- NOTE | 2024-04-30 16:17 | Emergency Department Note ---
Impression & Plan Atrial fibrillation with RVR ED Provider Note NAME: CATHI BEAR AGE: 64 SEX: M : 1960 ARRIVES VIA: Ambulance INFORMANT: [Patient][, ] ED PROVIDER(S): Glen Fuller MD CHIEF COMPLAINT: A-fib RVR HPI: This is a 64-year-old male presenting for A-fib RVR. Patient went to his primary care doctor's office today and was found to be in A-fib with RVR. Patient has no symptoms at this time. Noted anxiety in the morning but otherwise no significant symptoms. He did not sleep well last night (3 hours. He notes no chest pain, palpitations, shortness of breath, fever, chills, nausea, vomiting, likely, leg pain. No new drug or alcohol use. ROS: See above HPI for pertinent positives & negatives. A total of 10 systems reviewed and were otherwise negative. PAST MEDICAL HISTORY: See Below PAST SURGICAL HISTORY: See Below FAMILY HISTORY: See Below SOCIAL HISTORY: See Below HOME MEDICATIONS: See Below ALLERGIES: See Below VITALS: See Below PHYSICAL EXAMINATION: General: resting comfortably in no acute distress Head: Normocephalic and atraumatic Eyes: Normal inspection, extraocular muscles intact Ear, nose, throat: Normal external exam Neck: Normal range of motion Respiratory: lungs clear to auscultation bilaterally Cardiovascular: Regular rate/rhythm, no murmur GI: soft, nontender, no guarding or rebound Extremities: nontender, moves all extremities Neuro: The patient awake and alert, appropriately conversive, no focal deficits, symmetric faces Skin: Warm, dry, and intact MEDICAL DECISION MAKING: This is a 64-year-old male presenting for A-fib with RVR. Patient is currently in A-fib with rate between 155 and 170. Will give IV diltiazem at this time for rate control. His [id number] score is currently 2, for hypertension and age. -Chest Xray independently interpreted by me showing no pneumothorax, focal opacity, or pleural effusions. -No leukocytosis is noted, no anemia. Electrolytes are within normal limits. Patient's platelet count is low at around 74. -Patient given 2 different doses of 20 mg IV diltiazem. He has some improvement from 150/170s down to 100/120s. Still in A-fib with RVR. Will admit at this time. Differential diagnosis: A-fib with RVR, ACS, tachydysrhythmia Independent History obtained from: Diagnostics interpreted by me: ECG: [ECG independently interpreted by me with atrial fibrillation with rapid ventricular rate at 138, right axis deviation, normal QRS, normal QTc, no ST segment elevations consistent with STEMI criteria Cardiac Monitoring: An order was placed for continuous cardiac monitoring. The monitor shows a rate of 115 with atrial fibrillation with RVR rhythm. 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 Surgical History No pertinent past surgical history Family History Mother Colorectal cancer Brother GERTRUDIS (obstructive sleep apnea) Pituitary disease Renal failure Uncle Diabetes Hypertension Father Asbestosis Denies family history of Ovarian cancer Prostate cancer Myocardial infarction Breast cancer Social History (Updated 04/30/24 @ 14:03 by KENY Drummond) Smoking Status: Current every day smoker Tobacco Type: Cigarettes Age Started Using Tobacco: 14; packs per day: 0.5; Cigarettes Per Day: 5; Second Hand Exposure: Yes; Do You Dip or Chew Tobacco: No; Hx Alcohol Use: Yes Alcohol type: hard liquor Alcohol Intake Frequency: 2-3 x/Week Alcohol Intake Frequency Comment: 2-3 drinks a day Hx Substance Use: No Preferred Language: Romansh Communication Ability: Effective Visual Impairment: No Limitations Hearing Ability: Normal Workplace Relations Adviser Required: No Beliefs That Will Affect Care: None marital status: Single Current Living Situation: Parent Current Living Situation Comment: LIVES WITH MOTHER 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 How many Children do You have: 1 Feels Safe at Home: Yes Childhood Exposure to Second-Hand Smoke: Yes Diet: other and regular Diet Comment: Educated to increase protein in diet to assist with wound healing caffeine: Yes during the past year weight has: remained stable Dental Care, Regularly: No Physical Activity Frequency: Daily Seatbelt Use: always Sunscreen Use: Yes Assistive Devices: None Allergies Allergies Allergy/AdvReac Type Severity Reaction Status Date / Time No Known Allergies Allergy Verified 04/30/24 14:00 Home Meds Previous Rx's Medication Instructions Recorded atorvastatin 10 mg tablet 10 mg PO HS #90 tabs 12/01/22 apixaban 5 mg tablet (Eliquis) 5 mg PO BID #60 tabs 05/01/24 Results & Data (ED) Vital Signs Vital Signs - 24 hr 04/30/24 15:31 04/30/24 15:44 04/30/24 15:44 Temperature 36.5 C Temperature Source Oral Pulse Rate 150 H Pulse Rate from SpO2 Sensor Respiratory Rate 16 18 Blood Pressure 155/113 H Blood Pressure Mean 127 Pulse Oximetry 96 Oxygen Delivery Method Room Air Room Air Sepsis Recent Fever Within 48 Hours No Sepsis New/Unexplained Change in Mental Status N/A Sepsis Action Taken by Nursing No Action Required 04/30/24 15:54 04/30/24 15:54 04/30/24 15:56 Temperature Temperature Source Pulse Rate Pulse Rate from SpO2 Sensor Respiratory Rate Blood Pressure 147/109 H Blood Pressure Mean 128 Pulse Oximetry 99 Oxygen Delivery Method Room Air Room Air Sepsis Recent Fever Within 48 Hours Sepsis New/Unexplained Change in Mental Status Sepsis Action Taken by Nursing 04/30/24 15:59 04/30/24 16:00 04/30/24 16:00 Temperature Temperature Source Pulse Rate 107 H Pulse Rate from SpO2 Sensor Respiratory Rate Blood Pressure 134/105 H 134/105 H Blood Pressure Mean 109 109 Pulse Oximetry Oxygen Delivery Method Sepsis Recent Fever Within 48 Hours Sepsis New/Unexplained Change in Mental Status Sepsis Action Taken by Nursing 04/30/24 16:00 04/30/24 16:06 Temperature Temperature Source Pulse Rate 105 H Pulse Rate from SpO2 Sensor 100 H Respiratory Rate 21 Blood Pressure 134/105 H Blood Pressure Mean 109 Pulse Oximetry 95 Oxygen Delivery Method Sepsis Recent Fever Within 48 Hours Sepsis New/Unexplained Change in Mental Status Sepsis Action Taken by Nursing Laboratory Data 05/01/24 06:04 05/01/24 06:04 Lab Results 04/30/24 Range/Units 15:46 WBC 4.68 L (4.8-10.8) K/ul RBC 4.72 (4.70-6.10) M/uL Hgb 16.8 (14.0-18.0) g/dl Hct 47.0 (42.0-52.0) % MCV 99.6 (80.0-100.0) fL MCH 35.6 H (25.0-34.0) pg MCHC 35.7 (32.0-36.0) g/dL RDW Std Deviation 41.0 (36.4-46.3) fL RDW Coeff of Gokul 11.1 L (11.5-14.5) % Plt Count 74 L (130-400) K/uL MPV 11.0 (9.4-12.4) fL Immature Gran % (Auto) 0.2 % Neut % (Auto) 64.0 % Lymph % (Auto) 21.6 % Rutherford % (Auto) 13.2 % Eos % (Auto) 0.4 % Baso % (Auto) 0.6 % Neut # (Auto) 2.99 (1.40-6.50) K/uL Lymph # (Auto) 1.01 L (1.20-3.40) K/uL Rutherford # (Auto) 0.62 H (0.11-0.59) K/uL Eos # (Auto) 0.02 (0.00-0.50) K/uL Baso # (Auto) 0.03 (0.00-0.20) K/uL Immature Gran # (Auto) 0.01 (0.01-0.20) K/uL Platelet Estimate Decreased L (Normal) PT 11.4 (9.0-12.0) Seconds INR 1.1 (0.9-1.1) APTT 26 (21-31) Seconds PTT Ratio 1.0 Sodium 137 (136-145) mmol/L Potassium 4.0 (3.5-5.1) mmol/L Chloride 100 (98-107) mmol/L Carbon Dioxide 24 (21-32) mmol/L Anion Gap 13 H (3-11) BUN 9 (6-23) mg/dl Creatinine 0.86 (0.6-1.4) mg/dl Est Cr Clr Drug Dosing 101.6 ml/min eGFR 95.50 BUN/Creatinine Ratio 10.5 (10-20) Glucose 93 (70-99(Fasting)) mg/dl Calcium 9.4 (8.6-10.3) mg/dl Magnesium 1.4 L (1.7-2.4) mg/dl Total Bilirubin 1.1 H (0.2-1.0) mg/dl AST 87 H (13-39) U/L ALT 44 (7-52) U/L Alkaline Phosphatase 64 (34-104) U/L Troponin I High Sens 9.9 (0-20) pg/ml Total Protein 8.1 (6.0-8.3) gm/dl Albumin 4.3 (3.4-5.0) gm/dl Globulin 3.8 (2.5-4.0) gm/dl Albumin/Globulin Ratio 1.1 (0.9-2) Administered Medications Acetaminophen (Acetaminophen 500 Mg Tab) 1,000 mg PO Q8H PRN PRN Reason: Pain or Fever Stop: 05/30/24 21:33 Last Admin: 05/01/24 09:05 Dose: 1,000 mg Documented By: BEVERLEY Albuterol (Albuterol Hfa 8 Gm Inhaler) 2 puffs INH Q6R [facility] Stop: 05/31/24 10:29 Last Admin: 05/01/24 12:39 Dose: 2 puffs Documented By: Admin: 05/01/24 12:39 Dose: Not Given Documented By: LIAM Apixaban (Apixaban 5 Mg Tablet) 5 mg PO BID [facility] Stop: 05/30/24 21:33 Last Admin: 05/01/24 09:06 Dose: 5 mg Documented By: Admin: 04/30/24 22:06 Dose: 5 mg Documented By: STEPHANIE Atorvastatin Calcium (Atorvastatin 10 Mg Tab) 10 mg PO HS [facility] Stop: 05/30/24 21:33 Last Admin: 04/30/24 22:06 Dose: 10 mg Documented By: STEPHANIE Discontinued Medications Diltiazem HCl (Diltiazem Hcl 5 Mg/Ml 5 Ml Vial) 20 mg IV ONCE ONE Stop: 04/30/24 15:53 Last Admin: 04/30/24 15:52 Dose: 20 mg Documented By: MIRA Co-signed By: ALIS Diltiazem HCl (Diltiazem Hcl 5 Mg/Ml 5 Ml Vial) 20 mg IV NOW STA Stop: 04/30/24 17:06 Last Admin: 04/30/24 17:16 Dose: 20 mg Documented By: EDWARD Co-signed By: MIRA Magnesium Sulfate/Dextrose (Magnesium Sulfate / D5w) 1 gm in 100 mls @ 100 mls/hr IV NOW STA Stop: 04/30/24 16:52 Last Infusion: 04/30/24 16:57 Dose: Infused Documented By: Admin: 04/30/24 15:55 Dose: 100 mls/hr Documented By: MIRA Magnesium Sulfate/Dextrose (Magnesium Sulfate / D5w) 1 gm in 100 mls @ 50 mls/hr IV ONE ONE Stop: 05/01/24 00:38 Last Infusion: 05/01/24 03:16 Dose: Infused Documented By: Admin: 04/30/24 23:51 Dose: 50 mls/hr Documented By: STEPHANIE Lorazepam (Lorazepam 2 Mg/1 Ml Vial) 1 mg IV ONE PRN; Protocol PRN Reason: EtoH Withdrawal AWSS 6-10 Last Admin: 04/30/24 22:06 Dose: 1 mg Documented By: STEPHANIE Magnesium Sulfate/Dextrose (Magnesium Sulfate 1gm / D5w Bag) Confirm Administered Dose 1 gm IV .STK-MED ONE Stop: 04/30/24 15:54 Last Admin: 04/30/24 15:55 Dose: Not Given Documented By: MIRA Metoprolol Tartrate (Metoprolol Tartrate 50 Mg Tab) 50 mg PO NOW STA Stop: 04/30/24 20:33 Last Admin: 04/30/24 20:50 Dose: 50 mg Documented By: Metoprolol Tartrate (Metoprolol Tartrate 50 Mg Tab) 50 mg PO BID RODRIGO Stop: 05/30/24 21:33 Last Admin: 05/01/24 09:06 Dose: 50 mg Documented By: Admin: 04/30/24 22:07 Dose: 50 mg Documented By: STEPHANIE Metoprolol Tartrate (Metoprolol Tartrate 25 Mg Tab) 25 mg PO ONE ONE Stop: 05/01/24 10:20 Last Admin: 05/01/24 11:29 Dose: 25 mg Documented By: BEVERLEY Discharge Plan Visit Data Chief Complaint: Cardiac Assessment Stated Complaint: AFIB RVR ED Provider: Glen Fuller Discharge Problem: Atrial fibrillation with RVR Patient Disposition: Admitted As Inpatient Discharge Instructions Interventions: ED Discharge Assessment Last Done: 04/30/24 21:20
[2024-04-30 16:23] LABS: Albumin Globulin Ratio 1.1 (0.9-2); Albumin Level 4.3 gm/dl (3.4-5.0); BUN Creatinine Ratio 10.5 (10-20); Bilirubin,Total 1.1 mg/dl (0.2-1.0); Calcium 9.4 mg/dl (8.6-10.3); Creatinine Clr Calc Pharmacy 101.6 ml/min; Globulin 3.8 gm/dl (2.5-4.0); Magnesium 1.4 mg/dl (1.7-2.4); Total Protein 8.1 gm/dl (6.0-8.3)
[2024-04-30 16:28] LABS: Troponin I High Sensitivity 9.9 pg/ml (0-20)
[2024-04-30 16:29] LABS: Basophils # (auto) 0.03 K/uL (0.00-0.20); Basophils % (auto) 0.6 %; Eosinophils # (auto) 0.02 K/uL (0.00-0.50); Eosinophils % (auto) 0.4 %; Hemoglobin 16.8 g/dl (14.0-18.0); Immature Granulocytes # (auto) 0.01 K/uL (0.01-0.20); Immature Granulocytes % (auto) 0.2 %; Lymphocytes # (auto) 1.01 K/uL (1.20-3.40); Lymphocytes % (auto) 21.6 %; Mean Corpuscular Hemoglobin 35.6 pg (25.0-34.0); Mean Corpuscular Hgb Conc 35.7 g/dL (32.0-36.0); Mean Corpuscular Volume 99.6 fL (80.0-100.0); Monocytes # (auto) 0.62 K/uL (0.11-0.59); Monocytes % (auto) 13.2 %; Neutrophils # (auto) 2.99 K/uL (1.40-6.50); Platelet Count 74 K/uL (130-400); Platelet Estimate Decreased (Normal); RDW Coefficient of Variation 11.1 % (11.5-14.5); Red Blood Count 4.72 M/uL (4.70-6.10); White Blood Count 4.68 K/ul (4.8-10.8)
[2024-04-30 16:32] LABS: INR 1.1 (0.9-1.1); Partial Thromboplastin Time 26 Seconds (21-31); Prothrombin Time 11.4 Seconds (9.0-12.0)
--- NOTE | 2024-04-30 16:36 | XRay Report ---
EXAM: Portable AP chest radiograph TECHNIQUE: AP portable radiograph of the chest was obtained. INDICATION: Chest pain Comparison: Chest radiograph July 27, 2020 FINDINGS: LINES and TUBES: None CARDIOVASCULAR: Cardiac silhouette is stably mildly enlarged in size. LUNGS/PLEURA: No focal consolidation identified. Chronic interstitial changes of the lungs, mildly progressed from previous nation from 2020. Lungs are hyperinflated. No significant pleural fluid. No discernible pneumothorax. OSSEOUS/OTHER: No displaced acute osseous process identified. IMPRESSION: Mild interval progression of interstitial changes of the lungs with flattened diaphragms representing hyperinflation. This could be due to underlying emphysema or chronic interstitial disease. Mildly enlarged cardiac silhouette. Electronically signed by Adria Dumont 04-30-2024 4:35 PM
[2024-04-30] MEDS: dilTIAZem HCl 5 MG/ML 5 ML VIAL IV STA (17:16)
--- NOTE | 2024-04-30 18:58 | History & Physical Report ---
Date of Service April 30, 2024 Assessment & Plan (1) Atrial fibrillation with RVR: (2) Hypomagnesemia: (3) Hypersomnia: (4) Witnessed apneic spells: (5) Dyslipidemia: Plan 4 yo male PMHx HLD, insomnia/hypersomnia/witnessed apneas w/o diagnosis of GERTRUDIS admitted for new onset afib w/RVR. #Afib w/ RVR s/p 2x 50mg diltiazem IV in ER Will start metoprolol tartrate 50mg BID Start Eliquis 5mg BID Echocardiogram 5mg q15m IV push for rates >130 sustained #Hypomagnesemia s/p 2g IV continue to replete as indicated #Probable GERTRUDIS witnessed apneas, nonrestorative sleep, daytime hypersomnolence will need further workup as outpatient #HLD Cont. atorvastatin FENGI: heart healthy Code status: full DVT prophylaxis: Eliquis Isolation: none Disposition: PCU History of Present Illness Primary Care Provider: Melvin Workman, III, TRANSMISSION MAINTENANCE SUPERVISOR 64 yo male PMHx HLD, insomnia/hypersomnia/witnessed apneas w/o diagnosis of GERTRUDIS admitted for new onset afib w/RVR. Was seen at PCP office earlier today for welcome to medicare visit and found to be in afib with RVR on screening EKG. He was in his usual state of health until today. He states that he has felt sense of anxiety/lightness/palpitations in his chest for some time but cannot exactly quantify the onset of these symptoms. He denies CP, SOB, lightheadedness, N/V/D, new LE edema. Denies cardiac history besides HLD for which he is on low dose atorvastatin. Of note, pt has had workup for GERTRUDIS in the past with sleep study in 05/2024 - study was poor quality and inconclusive. Pt continues to have daytime hypersomnia, witnessed apneas, nonrestorative sleep At the time of admission, pt lying comfortably in bed, asymptomatic. No current complaints. ED Course: EKG reveals afib w/ RVR @138BPM Labs reveal: thrombocytopenia, coags WNL, Mg 1.4, mild elevation in AST and T bili Given 2g MgSO4 IV Given diltiazem 50mg IV x 2 Intermittently normocardic to tachycardic, was in 120s at time of admission Allergies Allergy/AdvReac Type Severity Reaction Status Date / Time No Known Allergies Allergy Verified 04/30/24 14:00 Home Medications Medication Instructions Recorded Confirmed Type atorvastatin 10 mg tablet 10 mg PO HS #90 tabs 12/01/22 04/30/24 Rx Past Med/Surg History Problem List (Updated 04/30/24 @ 19:16 by Wes Pratt DO) Hypomagnesemia Atrial fibrillation with RVR (Acute) Insomnia (Chronic) Hypersomnia Witnessed apneic spells Abnormal ankle brachial index Dyslipidemia (Chronic) Varicose veins of both lower extremities (Chronic) Medical History (Updated 04/30/24 @ 19:16 by Wes Pratt DO) Thrombocytopenia Intermittent claudication Dental abscess Transaminitis Acute Lyme disease Acute hyponatremia 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 Surgical History No pertinent past surgical history Family History Mother Colorectal cancer Brother GERTRUDIS (obstructive sleep apnea) Pituitary disease Renal failure Uncle Diabetes Hypertension Father Asbestosis Denies family history of Ovarian cancer Prostate cancer Myocardial infarction Breast cancer Social History (Updated 04/30/24 @ 14:03 by KENY Drummond) Smoking Status: Current some day smoker Tobacco Type: Cigarettes Age Started Using Tobacco: 14; packs per day: 0.5; Cigarettes Per Day: 2; Second Hand Exposure: Yes; Do You Dip or Chew Tobacco: No; Hx Alcohol Use: Yes Alcohol type: hard liquor Alcohol Intake Frequency: 2-3 x/Week Alcohol Intake Frequency Comment: 2-3 drinks a day Hx Substance Use: No Preferred Language: Slovak Communication Ability: Effective Visual Impairment: No Limitations Hearing Ability: Normal Director Of Product Design Required: No Beliefs That Will Affect Care: None marital status: Single Current Living Situation: Parent Current Living Situation Comment: Patient son is able to assist with wound care 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 How many Children do You have: 1 Feels Safe at Home: Yes Childhood Exposure to Second-Hand Smoke: Yes Diet: other and regular Diet Comment: Educated to increase protein in diet to assist with wound healing caffeine: Yes during the past year weight has: remained stable Dental Care, Regularly: No Physical Activity Frequency: Daily Seatbelt Use: always Sunscreen Use: Yes Assistive Devices: Glasses Review of Systems Review of Systems: reviewed, per HPI Physical Exam Physical Exam: Constitutional: well-appearing, no acute distress HEENT: NCAT, no conjunctival injection CV: tachycardic, irregular rhythm, no murmur appreciated, extremities well- perfused, no LE edema Resp: CTABL, no wheezes/rales/rhonchi appreciated, no increased work of breathing GI: soft, nondistended, nontender, BS normoactive MSK: no gross deformities appreciated Skin: warm, dry, no rash appreciated Neuro: alert, oriented, no focal neurologic deficit appreciated Results & Data Results & Data Vital Signs (Past 12 Hours) Vital Signs Temp Pulse Pulse Resp BP BP Pulse Ox 04/30/24 17:41 89 18 128/99 96 04/30/24 16:06 105 H 21 95 04/30/24 16:00 134/105 H 04/30/24 16:00 134/105 H 04/30/24 16:00 134/105 H 04/30/24 15:59 107 H 04/30/24 15:56 147/109 H 04/30/24 15:54 99 04/30/24 15:54 04/30/24 15:44 18 04/30/24 15:44 04/30/24 15:31 36.5 C 150 H 16 155/113 H 96 O2 Del Method 04/30/24 17:41 Room Air 04/30/24 16:06 04/30/24 16:00 04/30/24 16:00 04/30/24 16:00 04/30/24 15:59 04/30/24 15:56 04/30/24 15:54 Room Air 04/30/24 15:54 Room Air 04/30/24 15:44 04/30/24 15:44 Room Air 04/30/24 15:31 Room Air Supervising Physician Co-Signing Physician Notes I personally examined the patient and verified all zhu points of history and exam, discussed case, and agree with decision making with Dr Pratt Feeling okay. Screening EKG showed A-fib. Sent to the ER. Vitals noted, in general he is awake and alert pleasant no distress. HEENT normocephalic atraumatic mucous membranes moist. Breathing unlabored no accessory muscle use good effort. Skin without rashes pallor or icterus. Neuro without focal deficits. New onset A-fib/RVRrate control (metoprolol) anticoagulated (Eliquis). Check echo, check TSH. Appears to have sleep apnea but sleep study was nondiagnosticwill ask that he get set up with sleep medicine again. As long as rates are good, hopefully home tomorrow. Otherwise as above. Resident Activity Tracking Resident Involvement: Resident Care Provided Care Provided: Adult Hospital Medicine
--- NOTE | 2024-04-30 19:38 | Billing Data ---
Date of Service April 30, 2024 Coding Level of Care Code 71641 INT INP/OBS CARE
[2024-04-30] MEDS: METOPROLOL TARTRATE 50 MG TAB PO STA (20:50)
[2024-04-30] MEDS ORDERED: ONDANSETRON INJ 2 MG/ML 2 ML VIAL IV PRN (21:34)
[2024-04-30] MEDS ORDERED: MAGNESIUM HYDROXIDE SUSP 30 ML UDC PO PRN (21:34)
[2024-04-30] MEDS ORDERED: POLYETHYLENE (MIRALAX) 17 GM PACK PO PRN (21:34)
[2024-04-30] MEDS ORDERED: ALUMINUM/MAGNESIUM SUSP 30 ML UDC PO PRN (21:34)
[2024-04-30] MEDS: LORazepam 2 MG/1 ML VIAL IV PRN (22:06)
[2024-04-30] MEDS: ATORVASTATIN 10 MG TAB PO SCH (22:06)
[2024-04-30] MEDS: APIXABAN 5 MG TABLET PO SCH (22:06)
[2024-04-30] MEDS: METOPROLOL TARTRATE 50 MG TAB PO SCH (22:07)
[2024-04-30] MEDS: MAGNESIUM SULFATE / D5W 1 GM/100 ML BAG IV ONE (23:51)
--- NOTE | 2024-05-01 06:10 | Electrocardiogram Report ---
Test Reason : Blood Pressure : */* mmHG Vent. Rate : 138 BPM Atrial Rate : * BPM P-R Int : * ms QRS Dur : 98 ms QT Int : 296 ms P-R-T Axes : * 96 19 degrees QTcB Int : 448 ms Atrial fibrillation with rapid ventricular response with premature ventricular or aberrantly conducte d complexes Rightward axis Abnormal ECG No previous ECGs available Confirmed by David Quiroz ([id number]) on 05/01/2024 6:09:38 AM Referred By: Confirmed By: David Quiroz
[2024-05-01 06:33] LABS: Basophils # (auto) 0.03 K/uL (0.00-0.20); Basophils % (auto) 0.8 %; Eosinophils # (auto) 0.01 K/uL (0.00-0.50); Eosinophils % (auto) 0.3 %; Hematocrit (blood only) 43.8 % (42.0-52.0); Hemoglobin 15.7 g/dl (14.0-18.0); Immature Granulocytes # (auto) 0.01 K/uL (0.01-0.20); Immature Granulocytes % (auto) 0.3 %; Lymphocytes # (auto) 1.06 K/uL (1.20-3.40); Mean Corpuscular Hemoglobin 35.8 pg (25.0-34.0); Mean Corpuscular Hgb Conc 35.8 g/dL (32.0-36.0); Monocytes # (auto) 0.81 K/uL (0.11-0.59); Monocytes % (auto) 21.4 %; Neutrophils # (auto) 1.86 K/uL (1.40-6.50); Neutrophils % (auto) 49.2 %; Platelet Count 69 K/uL (130-400); RDW Coefficient of Variation 11.2 % (11.5-14.5); RDW Standard Deviation 41.9 fL (36.4-46.3); Red Blood Count 4.38 M/uL (4.70-6.10); White Blood Count 3.78 K/ul (4.8-10.8)
[2024-05-01 06:46] LABS: BUN Creatinine Ratio 15.1 (10-20); Calcium 9.3 mg/dl (8.6-10.3); Creatinine Clr Calc Pharmacy 95.5 ml/min; Magnesium 1.8 mg/dl (1.7-2.4); Potassium 4.2 mmol/L (3.5-5.1)
[2024-05-01 07:01] LABS: Thyroid Stimulating Hormone 3.675 uIu/ml (0.300-4.500)
[2024-05-01] MEDS: ACETAMINOPHEN 500 MG TAB PO PRN (09:05)
[2024-05-01] MEDS ORDERED: LORazepam 2 MG/1 ML VIAL IV PRN (10:17)
--- NOTE | 2024-05-01 10:27 | Hospitalist Progress Note ---
Date of Service May 01, 2024 Assessment & Plan (1) Atrial fibrillation with RVR: (2) Hypomagnesemia: (3) Hypersomnia: (4) Witnessed apneic spells: (5) Dyslipidemia: Plan 64 yo male PMHx HLD, insomnia/hypersomnia/witnessed apneas w/o diagnosis of GERTRUDIS, presented via EMS from PCP for new onset A fib with RVR. Was seen at PCP office for welcome to medicare visit and found to be in A fib with RVR on screening EKG. He reports being in his usual state of health until his PCP appointment when he experienced a sense of anxiety/lightheadedness/palpitations in his chest. He reports this happened briefly a couple months ago as well. #Afib with RVR Started/INCREASED metoprolol to 75 mg BID - monitor response, could increase to 100 mg BID if BP allows Started/continue Eliquis 5 mg BID Echocardiogram with low-normal systolic function, EF 50-55%, no regional wall motion abnormalities, no significant valvular abnormalities #Hypomagnesemia Mag low at 1.4 on admission, repleted with Mag 2 g IV. Augmented appropriately and now WNL at 1.8 #Probable GERTRUDIS Suspected underlying GERTRUDIS - witnessed apneas, nonrestorative sleep, daytime hypersomnolence. Father and brother with GERTRUDIS Sleep study in May 2023 inconclusive - recommend repeat/further workup outpatient Started Albuterol inhaler for wheezing #HLD Cont. atorvastatin #Alcohol use disorder Drinks ~6 alcohol drinks daily Started AWSS Ativan protocol DVT prophylaxis: Eliquis Dispo: Increased metoprolol for better rate control, continue to monitor. If improved, anticipate discharge 05/02. Admission and Anticipated Discharge Date Admission Date: April 30, 2024 Supervising Physician Co-Signing Physician Notes chart reviewed, case d/w S Ashley KHALIL, as above Subjective Patient seen and evaluated at bedside. He reports feeling well. He states the heart palpitations he experienced yesterday have resolved. He denies chest pain, palpitations, shortness of breath, lightheadedness, dizziness. He has some hand tremors bilaterally. He reports 2-3 drinks of double shot cocktails daily. He states previous sleep study in May 2023 was inconclusive, but that he did not sleep well due to the room being too hot. He reports his brother and father have GERTRUDIS. Upon questioning, he does admit to wheezing intermittently and states his PCP prescribes an inhaler that works well for him. He intermittently wakes up with productive cough with clear sputum production. No additional complaints or concerns at this time. Re-rounded on patient in afternoon. Telemetry shows A fib with rates 90-100s. He denies any palpitations, SOB, or other symptoms at this time. Physical Exam Physical Exam: General: No acute distress, nondiaphoretic, well-developed, well-nourished. Mild tremor in hands bilaterally (resolved at second evaluation). Cardiac: Irregular rhythm, tachycardic rate in 120s (now in 90s during second evaluation). No murmur. No LE edema. Pulm: Wheezing in bases bilaterally R>L, with rhonchi appreciated in RLL as well. Clear breath sounds at apices. Normal respiratory effort. 94% on room air. Abdominal: Soft, nontender, nondistended. Bowel sounds present. Neuro: A&O x3. No focal neurological deficits. Results & Data Results & Data Vital Signs (Past 12 Hours) Vital Signs Temp Pulse Resp BP Pulse Ox O2 Del Method 05/01/24 09:54 Room Air 05/01/24 07:24 97.9 F 61 20 133/87 94 Room Air 05/01/24 03:04 98.8 F 102 H 20 126/83 93 Room Air 04/30/24 23:13 98.8 F 65 16 126/87 91 Room Air Laboratory Results Reviewed CBC with differential Reviewed BMP, mag, TSH Diagnostic Findings Reviewed telemetry PG Care Time/CCT Total # of Minutes Spent Total Time Spent with Patient: Total time spent is greater than 50% in coordination of care (as documented) at patient's floor/unit and/or counseling patient: Coding Level of Care Code 71233 SUB INP/OBS CARE 3/50MIN Diagnoses Atrial fibrillation with RVR I48.91 Hypomagnesemia E83.42 Hypersomnia G47.10 Witnessed apneic spells R06.81 Dyslipidemia E78.5
[2024-05-01] MEDS: METOPROLOL TARTRATE 25 MG TAB PO ONE (11:29)
[2024-05-01] MEDS: ALBUTEROL HFA 8 GM INHALER INH SCH (12:39)
--- NOTE | 2024-05-01 16:03 | XCELERA ---
[id number] \\[id number]
[2024-05-01] MEDS: METOPROLOL TARTRATE 50 MG TAB PO SCH (20:48)
[2024-05-01] MEDS ORDERED: NICOTINE POLACRILEX 2 MG GUM MT PRN (20:56)
[2024-05-02] MEDS: OLANZapine 10 MG/2.1 ML SDV IM STA ×3 (03:43→04:28)
[2024-05-02] MEDS: LORazepam 2 MG/1 ML VIAL IM STA ×2 (04:16→06:44)
[2024-05-02] MEDS: LORazepam 1 MG TAB PO STA (04:18)
[2024-05-02] MEDS ORDERED: LORazepam 1 MG TAB PO PRN ×3 (04:33)
[2024-05-02] MEDS ORDERED: Ativan PO Alcohol Withdrawal--Active Protocol PO PRN (04:33)
[2024-05-02] MEDS: LORazepam 2 MG/1 ML VIAL IV PRN ×2 (05:15→05:45)
[2024-05-02] MEDS ORDERED: Ativan IV Alcohol Withdrawal--Active Protocol IV PRN (05:16)
--- NOTE | 2024-05-02 05:16 | Communication Note ---
Date of Service: May 02, 2024 S/O: Alerted by the nurse at 3:22 am that patient had pulled out his IV, taken off his heart monitor, was hallucinating, and was wanting to leave. Went up to patient's room, and along with nurse, tried to convince the patient to stay. Explained to the patient that due to his condition--elevated heart rate in the 150s, hallucinations of people watching him from inside his bathroom and getting ready to interrogate him and hold him captive--it was best if he remained in his hospital room. Despite repeated attempts, the patient was not persuaded. When it was pointed out that patient had arrived in ambulance and had now way of getting home, he showed us that he had the keys to his own pickup, which his son had given to him while visiting today. Patient then attempted to leave but had trouble finding his way out of the building. Security were called to help detain him and patient was eventually convinced to go back to his original room in a wheelchair. Patient refused to take any medication at this point, even though earlier in his stay he had received Ativan willingly through his IV. Patient was held down and given one 5- mg dose of Zyprexa, IM. Patient called the police on his cell phone and told them that he was being detained against his will. It was explained to the patient at the same time as it was to the police that in his current condition he was a danger to himself and others, especially if he attempted to drive. After some further conversation, the patient was agreeable to getting an oral dose of Ativan, but did not swallow it and attempted to spit it out. A 1 mg, IM dose of Ativan was given to him. The patient's heart rate remained elevated in the 170's. A second dose of Zyprexa, 5 mg, IM was given to him to help sedate him. After the second Zyprexa dose the patient agreed to let the team get IV access. A/P: Patient will continue to be on the AWSS protocol, with IV Ativan given at varying doses (1, 2, 3 mg, IV) depending on patient's AWSS score. Patient's son will be called this morning and the situation discussed with him. Patient will continue to be counseled that it is in his best interest to remain in the hospital so that he can be treated for alcohol withdrawal. Resident Activity Tracking Resident Involvement: Resident Care Provided Care Provided: Adult [facility]
[2024-05-02] MEDS: LORazepam 1 MG TAB ONE (05:53)
[2024-05-02] MEDS: LORazepam 2 MG/1 ML VIAL IV STA ×3 (08:24→16:37)
--- NOTE | 2024-05-02 09:15 | Hospitalist Progress Note ---
Date of Service May 02, 2024 Assessment & Plan (1) Atrial fibrillation with RVR: (2) Alcohol withdrawal: (3) Alcohol use disorder: (4) Hypersomnia: (5) Witnessed apneic spells: (6) Dyslipidemia: (7) Scrotal swelling: Plan 64 yo male PMHx HLD, insomnia/hypersomnia/witnessed apneas w/o diagnosis of GERTRUDIS, presented via EMS from PCP for new onset A fib with RVR. Was seen at PCP office for welcome to medicare visit and found to be in A fib with RVR on screening EKG. He reports being in his usual state of health until his PCP appointment when he experienced a sense of anxiety/lightheadedness/palpitations in his chest. He reports this happened briefly a couple months ago as well. Overnight 05/02, patient became agitated with hallucinations and tachycardia, attempted to leave AMA and security was called and patient medically sedated to be continued on AWSS protocol. #Alcohol withdrawal / Alcohol use disorder Drinks ~6 alcohol drinks daily Patient became agitated overnight removing his IV, hallucinating with paranoia, and attempted to leave AMA. Security was called to assist patient back to bed. Patient received 5 mg IM Zyprexa x 2 and 1 mg IM Ativan x 1 overnight. Placed in soft-limb restraints with 1:1 RN at bedside Continue AWSS protocol - 3 mg IV Ativan x 2 and 10 mg IV Valium x 1 Suspect AWSS of 13 around 1830 is more from AMS secondary to benzos than true alcohol withdrawal. Deferred additional benzos at that time and will reassess #Afib with RVR Convert to Metoprolol 5 mg IV q6h for now. Can adjust to q4h if tighter control is needed Metoprolol 75 mg PO BID on HOLD for now Lovenox 40 mg SQ on 05/02. Started Eliquis 5 mg BID but now on HOLD as patient cannot safely take PO medications Echocardiogram with low-normal systolic function, EF 50-55%, no regional wall motion abnormalities, no significant valvular abnormalities #Scrotal Swelling Noted - appears asymptomatic; unclear if chronic or acute Could consider hepatic US to investigate for advanced liver disease as the cause, however PT/INR and TBili unremarkable on admission #Probable GERTRUDIS Suspected underlying GERTRUDIS - witnessed apneas, nonrestorative sleep, daytime hypersomnolence. Father and brother with GERTRUDIS Sleep study in May 2023 inconclusive - recommend repeat/further workup outpatient Continue Albuterol inhaler for wheezing #Hypomagnesemia Mag low at 1.4 on admission, repleted with Mag 2 g IV. Augmented appropriately and now WNL at 1.8 #HLD Cont. atorvastatin DVT prophylaxis: Alexandra Dispo: Continued inpatient stay as now in medical alcohol withdrawal Updated patient's son via phone call Ordered IV Ativan and IV Valium Admission and Anticipated Discharge Date Admission Date: April 30, 2024 Supervising Physician Co-Signing Physician Notes I personally examined the patient and verified all zhu points of history and exam, discussed case, and agree with decision making with Lili MORENO fairly bad withdrawal today. mentation waxing and waning. GERTRUDIS noted at bedside - 1:1 notes this has been happening regardless of benzo dosing. vitals noted sleeping somewhat confused but not agitated anytime i see him breathing unla bored but with GERTRUDIS events and spontaneous recovery. good air entry no r/r/w good effort. EtOH withdrawal - benzo management afib/RVR - chronically likely ties back to GERTRUDIS. acutely rates worse w EtOH withdrawal anticoagulated otherwise as above Subjective Patient seen and evaluated at bedside with 1:1 RN present. He is restless in soft-point arm restraints bilaterally with intelligible speech / mumbling at this time. No ROS able to be obtained at this time. RN states patient's scrotum is swollen. RN present during exam and scrotum was definitely swollen, unclear if tender/painful. Attempted to call patient's son with update on events of last night; no answer, voicemail left to call back for update. Re-rounded on patient multiple times throughout afternoon and evening. Continues to remain somewhat agitated, though improved from earlier. Reached son via phone call in evening and provided update. Son is supportive of dad re maining inpatient for medical alcohol withdrawal and reports that he plans to reduce/stop drinking alcohol as well to better support his father. Physical Exam Physical Exam: General: Restless in soft-limb UE restraints bilaterally. Intelligible speech. 1:1 RN present at bedside. Non-diaphoretic with moderate tremors in hands bilaterally. Cardiac: Irregular rhythm, tachycardic rate in 120s. No murmur. No LE edema. Pulm: Difficult to auscultate due to patient being restless. Lung sounds appear to be clear. 98% on room air. Abdominal: Soft, nontender, nondistended. Bowel sounds present. : Swollen scrotum, unclear if tender/painful. Neuro: Agitated and totally confused. No focal neurological deficits. Results & Data Results & Data Vital Signs (Past 12 Hours) Vital Signs Temp Pulse Pulse Resp BP Pulse Ox O2 Del Method 05/02/24 07:11 97.7 F 122 H 18 119/77 98 Room Air 05/02/24 05:40 151 H 24 117/67 95 Room Air 05/02/24 05:12 98.6 F 181 H 20 176/129 H 95 Room Air 05/02/24 03:05 97.9 F 153 H 21 128/83 97 Room Air 05/01/24 23:13 97.7 F 103 H 21 120/78 97 Room Air 05/01/24 21:47 102 H PG Care Time/CCT Total # of Minutes Spent Total Time Spent with Patient: Total time spent is greater than 50% in coordination of care (as documented) at patient's floor/unit and/or counseling patient: Coding Level of Care Code 13349 SUB INP/OBS CARE 3/50MIN Diagnoses Atrial fibrillation with RVR I48.91 Alcohol withdrawal F10.939 Alcohol use disorder F10.90 Hypersomnia G47.10 Witnessed apneic spells R06.81 Dyslipidemia E78.5 Scrotal swelling N50.89
[2024-05-02] MEDS: METOPROLOL TARTRATE 1 MG/ML VIAL IV SCH (11:23)
[2024-05-02] MEDS: ENOXAPARIN INJ 40 MG/0.4 ML SYR SQ ONE (11:27)
[2024-05-02] MEDS: SODIUM CHLORIDE 0.9% 1,000 ML IV SCH (15:20)
[2024-05-02] MEDS: diazePAM 5 MG/ML 10ML VIAL IV STA (16:43)
[2024-05-02] MEDS ORDERED: diazePAM 5 MG/ML 10ML VIAL IV SCH (16:45)
[2024-05-02] MEDS: chlordiazePOXIDE HCl 25 MG CAP PO SCH (22:02)
[2024-05-03] MEDS: ENOXAPARIN INJ 40 MG/0.4 ML SYR SQ SCH (09:10)
--- NOTE | 2024-05-03 10:12 | Hospitalist Progress Note ---
Date of Service May 03, 2024 Assessment & Plan (1) Atrial fibrillation with RVR: (2) Alcohol withdrawal: (3) Alcohol use disorder: (4) Hypersomnia: (5) Witnessed apneic spells: (6) Dyslipidemia: (7) Scrotal swelling: Plan 64 yo male PMHx HLD, insomnia/hypersomnia/witnessed apneas w/o diagnosis of GERTRUDIS, presented via EMS from PCP for new onset A fib with RVR. Was seen at PCP office for welcome to medicare visit and found to be in A fib with RVR on screening EKG. He reports being in his usual state of health until his PCP appointment when he experienced a sense of anxiety/lightheadedness/palpitations in his chest. He reports this happened briefly a couple months ago as well. Overnight 05/02, patient became agitated with hallucinations and tachycardia, attempted to leave AMA and security was called and patient medically sedated to be continued on AWSS protocol. #Alcohol withdrawal / Alcohol use disorder Drinks ~6 alcohol drinks daily Agitated overnight with some combative behaviors. 1:1 sitter still present at bedside and in soft-limb restraints UE bilaterally. Received total of 2 mg IV Ativan x 4 overnight. Received 2 mg IV Ativan x 1 so far today Continue AWSS protocol #Afib with RVR Convert to Metoprolol 5 mg IV q6h for now. Can adjust to q4h if tighter control is needed Metoprolol 75 mg PO BID on HOLD for now Lovenox 40 mg SQ on 05/02 and 05/03. Started Eliquis 5 mg BID but now on HOLD as patient cannot safely take PO medications Echocardiogram with low-normal systolic function, EF 50-55%, no regional wall motion abnormalities, no significant valvular abnormalities #Scrotal Swelling Noted - appears asymptomatic; unclear if chronic or acute Could consider hepatic US to investigate for advanced liver disease as the cause, however PT/INR and TBili unremarkable on admission #Probable GERTRUDIS Suspected underlying GERTRUDIS - witnessed apneas, nonrestorative sleep, daytime hypersomnolence. Father and brother with GERTRUDIS Sleep study in May 2023 inconclusive - recommend repeat/further workup outpatient Continue Albuterol inhaler for wheezing #Hypomagnesemia Mag low at 1.4 on admission, repleted with Mag 2 g IV. Augmented appropriately and now WNL at 1.8 #HLD Cont. atorvastatin DVT prophylaxis: Eliquis Dispo: Continued inpatient stay as now in medical alcohol withdrawal Updated patient's son via phone call Admission and Anticipated Discharge Date Admission Date: April 30, 2024 Supervising Physician Co-Signing Physician Notes chart reviewed, case d/w S Ashley KHALIL, as above Subjective Patient seen and evaluated at bedside this morning with 1:1 WASHER AND CRUSHER TENDER present. Mr. Schneider was reportedly agitated overnight and attempted to remove restraints. Earlier this morning, he was agitated and yelling. At this time, he is sleeping in bed. Reevaluated in afternoon. Patient sleeping in bed at that time. WASHER AND CRUSHER TENDER reports he is redirectable when awake. No additional complaints or concerns at this time. Physical Exam Physical Exam: General: Sleeping in bed with soft-limb restraints on UE bilaterally. Intelligible speech. 1:1 WASHER AND CRUSHER TENDER present at bedside. Agitated when awake. Cardiac: Irregular rhythm, tachycardic rate in 110s. No LE edema. Reviewed telemetry: A fib in 110-120s. Pulm: Deferred due to patient resting. Intermittent apneic respirations likely secondary to suspected underlying GERTRUDIS. 98% on room air. : Swollen scrotum, does not appear to be painful. Neuro: Agitated and totally confused when awake. No focal neurological deficits. Results & Data Results & Data Vital Signs (Past 12 Hours) Vital Signs Temp Pulse Pulse Resp BP BP Pulse Ox 05/03/24 07:14 80 20 98 05/03/24 07:00 98.8 F 111 H 20 128/84 97 05/03/24 05:56 133 H 116/83 05/03/24 05:41 127 H 124/85 05/03/24 03:00 98.4 F 137 H 16 150/74 H 98 05/02/24 23:21 121 H 120/85 05/02/24 23:06 134 H 121/85 05/02/24 22:43 97.9 F 77 18 121/85 91 O2 Del Method 05/03/24 07:14 Room Air 05/03/24 07:00 Room Air 05/03/24 05:56 05/03/24 05:41 05/03/24 03:00 Room Air 05/02/24 23:21 05/02/24 23:06 05/02/24 22:43 Room Air PG Care Time/CCT Total # of Minutes Spent Total Time Spent with Patient: Total time spent is greater than 50% in coordination of care (as documented) at patient's floor/unit and/or counseling patient: Coding Level of Care Code 01543 SUB INP/OBS CARE 2/35MIN Diagnoses Atrial fibrillation with RVR I48.91 Alcohol withdrawal F10.939 Alcohol use disorder F10.90 Hypersomnia G47.10 Witnessed apneic spells R06.81 Dyslipidemia E78.5 Scrotal swelling N50.89
[2024-05-03] MEDS: LORazepam 2 MG/1 ML VIAL IV PRN (18:40)
[2024-05-03] MEDS: ACETAMINOPHEN 1,000 MG/100 ML VIAL IV PRN (21:13)
--- NOTE | 2024-05-04 10:07 | Hospitalist Progress Note ---
Date of Service May 04, 2024 Assessment & Plan (1) Atrial fibrillation with RVR: (2) Alcohol withdrawal: (3) Alcohol use disorder: (4) Hypersomnia: (5) Witnessed apneic spells: (6) Dyslipidemia: (7) Scrotal swelling: Plan 64 yo male PMHx HLD, insomnia/hypersomnia/witnessed apneas w/o diagnosis of GERTRUDIS, presented via EMS from PCP for new onset A fib with RVR. Was seen at PCP office for welcome to medicare visit and found to be in A fib with RVR on screening EKG. He reports being in his usual state of health until his PCP appointment when he experienced a sense of anxiety/lightheadedness/palpitations in his chest. He reports this happened briefly a couple months ago as well. Overnight 05/02, patient became agitated with hallucinations and tachycardia, attempted to leave AMA and security was called and patient medically sedated to be continued on AWSS protocol. #Alcohol withdrawal / Alcohol use disorder Drinks ~6 alcohol drinks daily. Chronic pancytopenia, recommend further outpatient workup Soft-limb restraints removed overnight. Continues on 1:1 sitter for redirection/safety More awake and alert today, but still having some hallucinations intermittently Continue AWSS protocol #Afib with RVR Metoprolol 75 mg PO BID resumed now that he can safely swallow PO meds. Monitor for adjustments as needed Started/continued on Eliquis 5 mg BID Echocardiogram with low-normal systolic function, EF 50-55%, no regional wall motion abnormalities, no significant valvular abnormalities #Scrotal Swelling Noted - appears asymptomatic; unclear if chronic or acute Could consider hepatic US to investigate for advanced liver disease as the cause, however PT/INR and TBili unremarkable on admission #Probable GERTRUDIS Suspected underlying GERTRUDIS - witnessed apneas, nonrestorative sleep, daytime hypersomnolence. Father and brother with GERTRUDIS Sleep study in May 2023 inconclusive - recommend repeat/further workup outpatient Continue Albuterol inhaler for wheezing #Hypomagnesemia Mag low at 1.4 on admission, repleted with Mag 2 g IV. Augmented appropriately and now WNL at 1.8 #HLD Cont. atorvastatin DVT prophylaxis: Eliquis Dispo: Continued inpatient stay as now in medical alcohol withdrawal Resumed PO metoprolol and Eliquis Discontinued IV metoprolol and Lovenox Admission and Anticipated Discharge Date Admission Date: April 30, 2024 Supervising Physician Co-Signing Physician Notes chart reviewed, case d/w S Ashley KHALIL, as above Subjective Patient seen and evaluated at bedside with 1:1 MARINE EQUIPMENT PRESERVATION INSPECTOR present. He is more awake and alert today. His soft-restraints were removed overnight, he does continue on 1:1 for redirection/safety. He was out of bed and sat in bedside chair this morning. He is oriented to person and place. He continues to have mumbled speech. He is safely swallowing PO intake/meds at this time. Re-rounded on patient in afternoon. He was sleeping in bed at this time. MARINE EQUIPMENT PRESERVATION INSPECTOR at bedside reports he was having some hallucinations earlier and was given Ativan per AWSS protocol. No additional complaints or concerns at this time. Physical Exam Physical Exam: General: More awake and alert today. Mumbled speech. 1:1 MARINE EQUIPMENT PRESERVATION INSPECTOR at bedside. Now out of soft-limb restraints. Cardiac: Irregular rhythm, tachycardic rate in 110s. No LE edema. Reviewed telemetry: A fib in 100-130s, high of 150s overnight. Pulm: Clear breath sounds. Intermittent apneic respirations when asleep likely secondary to suspected underlying GERTRUDIS. 97% on room air. Neuro: A&O x2 (person, place). No focal neurological deficits. Results & Data Results & Data Vital Signs (Past 12 Hours) Vital Signs Temp Pulse Pulse Resp BP BP Pulse Ox 05/04/24 07:56 77 12 97 05/04/24 06:59 97.5 F L 96 H 20 112/75 94 05/04/24 06:32 105 H 148/82 H 05/04/24 06:06 112 H 122/83 05/04/24 02:09 98.8 F 71 20 122/79 97 05/04/24 00:27 92 H 113/90 05/03/24 23:56 114 H 122/85 05/03/24 23:53 112 H 20 122/85 94 05/03/24 22:16 98.2 F 87 21 115/78 97 O2 Del Method FiO2 05/04/24 07:56 Room Air 21 05/04/24 06:59 Room Air 05/04/24 06:32 05/04/24 06:06 05/04/24 02:09 Room Air 05/04/24 00:27 05/03/24 23:56 03/13/25 23:53 Room Air 05/03/24 22:16 Room Air Laboratory Results Reviewed BMP, mag Diagnostic Findings Reviewed telemetry PG Care Time/CCT Total # of Minutes Spent Total Time Spent with Patient: Total time spent is greater than 50% in coordination of care (as documented) at patient's floor/unit and/or counseling patient: Coding Level of Care Code 75885 SUB INP/OBS CARE 3/50MIN Diagnoses Atrial fibrillation with RVR I48.91 Alcohol withdrawal F10.939 Alcohol use disorder F10.90 Hypersomnia G47.10 Witnessed apneic spells R06.81 Dyslipidemia E78.5 Scrotal swelling N50.89
[2024-05-04 11:35] LABS: BUN Creatinine Ratio 19.8 (10-20); Creatinine Clr Calc Pharmacy 101.4 ml/min; Magnesium 1.7 mg/dl (1.7-2.4); Potassium 3.8 mmol/L (3.5-5.1)
[2024-05-05 07:34] LABS: Hematocrit (blood only) 43.7 % (42.0-52.0); Hemoglobin 15.1 g/dl (14.0-18.0); Mean Corpuscular Hgb Conc 34.6 g/dL (32.0-36.0); Mean Corpuscular Volume 101.4 fL (80.0-100.0); Mean Platelet Volume 11.5 fL (9.4-12.4); Platelet Count 68 K/uL (130-400); RDW Coefficient of Variation 11.2 % (11.5-14.5); RDW Standard Deviation 42.2 fL (36.4-46.3); Red Blood Count 4.31 M/uL (4.70-6.10); White Blood Count 5.71 K/ul (4.8-10.8)
--- NOTE | 2024-05-05 08:03 | Hospitalist Progress Note ---
Date of Service May 05, 2024 Assessment & Plan (1) Atrial fibrillation with RVR: (2) Alcohol withdrawal: (3) Alcohol use disorder: (4) Hypersomnia: (5) Witnessed apneic spells: (6) Dyslipidemia: (7) Scrotal swelling: Plan 64 yo male PMHx HLD, insomnia/hypersomnia/witnessed apneas w/o diagnosis of GERTRUDIS, presented via EMS from PCP for new onset A fib with RVR. Was seen at PCP office for welcome to medicare visit and found to be in A fib with RVR on screening EKG. He reports being in his usual state of health until his PCP appointment when he experienced a sense of anxiety/lightheadedness/palpitations in his chest. He reports this happened briefly a couple months ago as well. Overnight 05/02, patient became agitated with hallucinations and tachycardia, attempted to leave AMA and security was called and patient medically sedated to be continued on AWSS protocol. #Alcohol withdrawal / Alcohol use disorder Drinks ~6 alcohol drinks daily. Chronic thrombocytopenia, recommend further outpatient workup Continues on 1:1 sitter for redirection/safety given ambulatory dysfunction and impulsiveness More awake and alert today, no reported hallucinations Continue AWSS protocol PT/OT consulted #Afib with RVR Metoprolol increased to 100 mg PO BID for better rate control - continue to monitor for further adjustments as needed Started/continued on Eliquis 5 mg BID Echocardiogram with low-normal systolic function, EF 50-55%, no regional wall motion abnormalities, no significant valvular abnormalities #Scrotal Swelling Noted - appears asymptomatic; unclear if chronic or acute Could consider hepatic US to investigate for advanced liver disease as the cause, however PT/INR and TBili unremarkable on admission #Probable GERTRUDIS Suspected underlying GERTRUDIS - witnessed apneas, nonrestorative sleep, daytime hypersomnolence. Father and brother with GERTRUDIS Sleep study in May 2023 inconclusive - recommend repeat/further workup outpati ent Continue Albuterol inhaler for wheezing #Hypomagnesemia Mag low at 1.4 on admission, repleted with Mag 2 g IV. Augmented appropriately and now WNL #HLD Cont. atorvastatin DVT prophylaxis: Eliquis Dispo: Anticipate another 24-48 hours inpatient while going through medical alcohol withdrawal. Patient's son requests alcohol cessation resources for the patient on discharge; will inform CM Increased metoprolol Consulted PT/OT Updated patient's son via phone call Admission and Anticipated Discharge Date Admission Date: April 30, 2024 Supervising Physician Co-Signing Physician Notes chart reviewed, case d/w S Ashley KHALIL, as above Subjective Patient seen and evaluated in bedside chair with 1:1 PACKING ROOM INSPECTOR present in the room. He is much more alert today. He continues to have some mumbled speech, but is more intelligible today. He reports a good appetite and slept well overnight. He denies any chest pain, palpitations, SOB. PACKING ROOM INSPECTOR reports he is unsteady on his feet when walking and can be impulsive with trying to get up independently. Decision to continue 1:1 for safety given concern for ambulatory dysfunction and impulsiveness. We discussed increasing his metoprolol for better rate control and consulting PT/OT. No additional complaints or concerns at this time. Physical Exam Physical Exam: General: More awake and alert today, sitting in bedside chair. Mumbled speech but more intelligible than previously. 1:1 PACKING ROOM INSPECTOR at bedside. Cardiac: Irregular rhythm, tachycardic rate in 110s-120s. No LE edema. Reviewed telemetry: A fib in 110-120s, high of 150s overnight. Pulm: Clear breath sounds without wheezes or crackles. Intermittent apneic respirations when asleep likely secondary to suspected underlying GERTRUDIS. 98% on room air. Neuro: A&O x2 (person, place). No focal neurological deficits. Results & Data Results & Data Vital Signs (Past 12 Hours) Vital Signs Temp Pulse Pulse Resp BP Pulse Ox O2 Del Method 05/05/24 07:21 77 17 98 Room Air 05/05/24 06:36 98.2 F 93 H 18 109/76 97 Room Air 05/04/24 23:00 Room Air 05/04/24 21:58 99 H 05/04/24 20:20 98.2 F 92 H 19 91/64 L 95 Room Air FiO2 05/05/24 07:21 21 05/05/24 06:36 05/04/24 23:00 05/04/24 21:58 05/04/24 20:20 Laboratory Results Reviewed CBC Diagnostic Findings Reviewed telemetry PG Care Time/CCT Total # of Minutes Spent Total Time Spent with Patient: Total time spent is greater than 50% in coordination of care (as documented) at patient's floor/unit and/or counseling patient: Coding Level of Care Code 05663 SUB INP/OBS CARE 50MIN Diagnoses Atrial fibrillation with RVR I48.91 Alcohol withdrawal F10.939 Alcohol use disorder F10.90 Hypersomnia G47.10 Witnessed apneic spells R06.81 Dyslipidemia E78.5 Scrotal swelling N50.89
[2024-05-05] MEDS: METOPROLOL TARTRATE 25 MG TAB PO STA (12:02)
[2024-05-05] MEDS: METOPROLOL TARTRATE 100 MG TAB PO SCH (20:14)
[2024-05-06 07:41] LABS: Creatinine Clr Calc Pharmacy 95.5 ml/min
--- NOTE | 2024-05-06 10:56 | Hospitalist Progress Note ---
Date of Service May 06, 2024 Assessment & Plan (1) Atrial fibrillation with RVR: (2) Alcohol withdrawal: (3) Alcohol use disorder: (4) Hypersomnia: (5) Witnessed apneic spells: (6) Dyslipidemia: (7) Scrotal swelling: Plan 64 yo male PMHx HLD, insomnia/hypersomnia/witnessed apneas w/o diagnosis of GERTRUDIS, presented via EMS from PCP for new onset A fib with RVR. Was seen at PCP office for welcome to medicare visit and found to be in A fib with RVR on screening EKG. He reports being in his usual state of health until his PCP appointment when he experienced a sense of anxiety/lightheadedness/palpitations in his chest. He reports this happened briefly a couple months ago as well. Overnight 05/02, patient became agitated with hallucinations and tachycardia, attempted to leave AMA and security was called and patient medically sedated to be continued on AWSS protocol. Improving through alcohol withdrawal and heart rates improving with medication adjustments. #Alcohol withdrawal / Alcohol use disorder Drinks ~6 alcohol drinks daily. Chronic pancytopenia, recommend further outpatient workup Continues on 1:1 sitter for redirection/safety More awake and alert today, but with intermittent confusion/agitation (pulling off heart monitor, impulsively gets OOB) - redirectable Continue AWSS protocol PT/OT recommending short term rehab #Afib with RVR Continue metoprolol 100 mg BID - improvement in rates, now in 90-100s Started/continued on Eliquis 5 mg BID Echocardiogram with low-normal systolic function, EF 50-55%, no regional wall motion abnormalities, no significant valvular abnormalities #Probable GERTRUDIS Suspected underlying GERTRUDIS - witnessed apneas, nonrestorative sleep, daytime hypersomnolence. Father and brother with GERTRUDIS Sleep study in May 2023 inconclusive - recommend repeat/further workup outpatient Continue Albuterol inhaler for wheezing #Scrotal Swelling Noted - appears asymptomatic; unclear if chronic or acute Could consider hepatic US to investigate for advanced liver disease as the cause, however PT/INR and TBili unremarkable on admission #Hypomagnesemia Mag low at 1.4 on admission, repleted with Mag 2 g IV. Augmented appropriately and now WNL #HLD Cont. atorvastatin DVT prophylaxis: Eliquis Dispo: Improving with alcohol withdrawal. Heart rate better controlled. PT/OT recommend short term rehab - will have CM call patient's son tomorrow 05/07 Update patient's son via phone call Admission and Anticipated Discharge Date Admission Date: April 30, 2024 Supervising Physician Co-Signing Physician Notes chart reviewed, case d/w S Ashley KHALIL, as above Subjective Patient seen and evaluated at bedside with 1:1 RN PALLIATIVE CARE present. He reports feeling well. He states he slept well overnight and has a good appetite. He denies any acute complaints or concerns at this time. We discussed his heart rate is better controlled today after the adjustments with his metoprolol yesterday. His RN reports he has intermittent confusion and will become slightly agitated at times with pulling off his heart monitor, but he is redirectable. Physical Exam Physical Exam: General: Awake and alert, answers questions appropriately. Intermittent confusion with agitation but redirectable. No hallucinations or tremors. 1:1 RN PALLIATIVE CARE at bedside. Cardiac: Irregular rhythm, tachycardic rate in 90-100s. No LE edema. Reviewed telemetry: A fib in 90-100s with occasional PVCs overnight. Pulm: Clear breath sounds without wheezes or crackles. Intermittent apneic respirations when asleep likely secondary to suspected underlying GERTRUDIS. 93% on room air. Neuro: A&O x3 with intermittent periods of confusion. No focal neurological deficits. Results & Data Results & Data Vital Signs (Past 12 Hours) Vital Signs Temp Pulse Pulse Resp BP Pulse Ox O2 Del Method 05/06/24 09:00 Room Air 05/06/24 07:43 92 H 18 93 Room Air 05/06/24 07:20 97.3 F L 92 H 18 106/78 93 Room Air 05/06/24 07:00 90 05/06/24 02:21 97.7 F 90 20 110/76 95 Room Air Diagnostic Findings Reviewed telemetry PG Care Time/CCT Total # of Minutes Spent Total Time Spent with Patient: Total time spent is greater than 50% in coordination of care (as documented) at patient's floor/unit and/or counseling patient: Coding Level of Care Code 94853 SUB INP/OBS CARE 2/35MIN Diagnoses Atrial fibrillation with RVR I48.91 Alcohol withdrawal F10.939 Alcohol use disorder F10.90 Hypersomnia G47.10 Witnessed apneic spells R06.81 Dyslipidemia E78.5 Scrotal swelling N50.89
--- NOTE | 2024-05-07 13:08 | Hospitalist Progress Note ---
Date of Service May 07, 2024 Assessment & Plan (1) Atrial fibrillation with RVR: (2) Alcohol withdrawal: (3) Alcohol use disorder: (4) Hypersomnia: (5) Witnessed apneic spells: (6) Dyslipidemia: (7) Scrotal swelling: Plan 64 yo male PMHx HLD, insomnia/hypersomnia/witnessed apneas w/o diagnosis of GERTRUDIS, presented via EMS from PCP for new onset A fib with RVR. Was seen at PCP office for welcome to medicare visit and found to be in A fib with RVR on screening EKG. He reports being in his usual state of health until his PCP appointment when he experienced a sense of anxiety/lightheadedness/palpitations in his chest. He reports this happened briefly a couple months ago as well. Overnight 05/02, patient became agitated with hallucinations and tachycardia, attempted to leave AMA and security was called and patient medically sedated to be continued on AWSS protocol. Improving through alcohol withdrawal and heart rates improving with medication adjustments. #Alcohol withdrawal / Alcohol use disorder Drinks ~6 alcohol drinks daily. Chronic pancytopenia, recommend further outpatient workup Awake and alert, not impulsive with getting OOB, not agitated, no further hallucinations. On 2:1 sitter due to patient's roommate requiring a sitter and to ensure Larry remains safe. If no events today, can discontinue sitter Continue AWSS protocol PT/OT recommending short term rehab #Afib with RVR Continue metoprolol 100 mg BID - improvement in rates, now in 90-100s Started/continued on Eliquis 5 mg BID Echocardiogram with low-normal systolic function, EF 50-55%, no regional wall motion abnormalities, no significant valvular abnormalities #Probable GERTRUDIS Suspected underlying GERTRUDIS - witnessed apneas, nonrestorative sleep, daytime hypersomnolence. Father and brother with GERTRUDIS Sleep study in May 2023 inconclusive - recommend repeat/further workup outpatient Continue Albuterol inhaler prn for wheezing #Scrotal Swelling Noted - appears asymptomatic; unclear if chronic or acute Could consider hepatic US to investigate for advanced liver disease as the cause, however PT/INR and TBili unremarkable on admission #Hypomagnesemia Mag low at 1.4 on admission, repleted with Mag 2 g IV. Augmented appropriately and now WNL #HLD Cont. atorvastatin DVT prophylaxis: Eliquis Dispo: Improving with alcohol withdrawal. Heart rate better controlled. PT/OT recommend short term rehab, informed CM. Updated ex- at bedside Decreased Librium Discussed discharge planning with CM Admission and Anticipated Discharge Date Admission Date: April 30, 2024 Subjective Patient seen and evaluated at bedside with 2:1 DRAFTER PLUMBING and ex- present at bedside. He reports feeling well and notes that he is unsteady on his feet when walking. He denies any palpitations, chest pain, SOB, or wheezing. We discussed that PT/OT are recommending short term rehab, he is agreeable. No further impulsiveness with getting OOB and fully oriented without episodes of confusion this morning. Physical Exam Physical Exam: General: Sitting up in bed watching TV. Much improved from withdrawal standpoint but remains weak when standing/walking. No hallucinations or tremors. 2:1 DRAFTER PLUMBING at bedside. Cardiac: Irregular rhythm, tachycardic rate in 90-100s. No LE edema. Reviewed telemetry: A fib in 90-100s overnight. Pulm: Clear breath sounds without wheezes or crackles. Intermittent apneic respirations when asleep likely secondary to suspected underlying GERTRUDIS. 94% on room air. Neuro: A&O x3. No focal neurological deficits. Results & Data Results & Data Vital Signs (Past 12 Hours) Vital Signs Temp Pulse Resp BP Pulse Ox O2 Del Method 05/07/24 07:40 98.1 F 85 18 104/76 90 Room Air Diagnostic Findings Reviewed telemetry PG Care Time/CCT Total # of Minutes Spent Total Time Spent with Patient: Total time spent is greater than 50% in coordination of care (as documented) at patient's floor/unit and/or counseling patient: Coding Level of Care Code 12887 SUB INP/OBS CARE 3/50MIN Diagnoses Atrial fibrillation with RVR I48.91 Alcohol withdrawal F10.939 Alcohol use disorder F10.90 Hypersomnia G47.10 Witnessed apneic spells R06.81 Dyslipidemia E78.5 Scrotal swelling N50.89
[2024-05-07] MEDS: chlordiazePOXIDE HCl 25 MG CAP PO SCH (14:24)
[2024-05-08] MEDS: ALBUTEROL HFA 8 GM INHALER INH PRN (07:38)
--- NOTE | 2024-05-08 07:42 | Hospitalist Progress Note ---
Date of Service May 08, 2024 Assessment & Plan (1) Atrial fibrillation with RVR: (2) Alcohol withdrawal: (3) Alcohol use disorder: (4) Hypersomnia: (5) Witnessed apneic spells: (6) Dyslipidemia: (7) Scrotal swelling: Plan 64 yo male PMHx HLD, insomnia/hypersomnia/witnessed apneas w/o diagnosis of GERTRUDIS, presented via EMS from PCP for new onset A fib with RVR. Was seen at PCP office for welcome to medicare visit and found to be in A fib with RVR on screening EKG. He reports being in his usual state of health until his PCP appointment when he experienced a sense of anxiety/lightheadedness/palpitations in his chest. He reports this happened briefly a couple months ago as well. Overnight 05/02, patient became agitated with hallucinations and tachycardia, attempted to leave AMA and security was called and patient medically sedated to be continued on AWSS protocol. Improving through alcohol withdrawal and heart rates improving with medication adjustments. #Alcohol withdrawal / Alcohol use disorder Drinks ~6 alcohol drinks daily. Chronic pancytopenia, recommend further outpatient workup Tapering doses of librium at this point, can consider naltrexone for outpt PT/OT recommending short term rehab #Afib with RVR Continue metoprolol 100 mg BID - Started/continued on Eliquis 5 mg BID Echocardiogram with low-normal systolic function, EF 50-55%, no regional wall motion abnormalities, no significant valvular abnormalities #Probable GERTRUDIS Suspected underlying GERTRUDIS - witnessed apneas, nonrestorative sleep, daytime hypersomnolence. Father and brother with GERTRUDIS Sleep study in May 2023 inconclusive - recommend repeat/further workup outpatient Continue Albuterol inhaler prn for wheezing #Scrotal Swelling Noted - appears asymptomatic; unclear if chronic or acute Could consider hepatic US to investigate for advanced liver disease as the cause, however PT/INR and TBili unremarkable on admission #Hypomagnesemia Mag low at 1.4 on admission, repleted with Mag 2 g IV. Augmented appropriately and now WNL #HLD Cont. atorvastatin DVT prophylaxis: Eliquis PT/OT recommend short term rehab, informed CM. Decreased Librium Discussed discharge planning with CM Admission and Anticipated Discharge Date Admission Date: April 30, 2024 Subjective pt is lethargic, did taper Librium and will continue to do so, he is having issues with PT/OT no other complaints at this time Physical Exam Physical Exam: cardiac is regular lungs are clear ext with trace edema Results & Data Results & Data Vital Signs (Past 12 Hours) Vital Signs Temp Pulse Pulse Resp BP BP Pulse Ox 05/08/24 06:57 98.4 F 78 18 107/72 96 05/08/24 04:51 97.7 F 71 18 98/62 L 93 05/07/24 22:34 97.2 F L 80 19 104/74 94 05/07/24 22:04 85 05/07/24 21:00 05/07/24 20:00 05/07/24 19:59 97.3 F L 102 H 18 106/74 91 Pulse Ox O2 Del Method O2 Del Method 05/08/24 06:57 Room Air 05/08/24 04:51 Room Air 05/07/24 22:34 Room Air 05/07/24 22:04 05/07/24 21:00 91 Room Air 05/07/24 20:00 Room Air 05/07/24 19:59 Room Air PG Care Time/CCT Total # of Minutes Spent Total Time Spent with Patient: Total time spent is greater than 50% in coordination of care (as documented) at patient's floor/unit and/or counseling patient: Coding Level of Care Code 03696 SUB INP/OBS CARE 2/35MIN Diagnoses Atrial fibrillation with RVR I48.91 Alcohol withdrawal F10.939 Alcohol use disorder F10.90 Hypersomnia G47.10 Witnessed apneic spells R06.81 Dyslipidemia E78.5 Scrotal swelling N50.89
[2024-05-08] MEDS: chlordiazePOXIDE HCl 25 MG CAP PO SCH (13:41)
[2024-05-09 07:35] LABS: Creatinine Clr Calc Pharmacy 101.4 ml/min
[2024-05-09] MEDS: chlordiazePOXIDE HCl 25 MG CAP PO SCH (08:22)
--- NOTE | 2024-05-09 18:33 | Hospitalist Progress Note ---
Date of Service May 09, 2024 Assessment & Plan (1) Atrial fibrillation with RVR: (2) Alcohol withdrawal: (3) Alcohol use disorder: (4) Hypersomnia: (5) Witnessed apneic spells: (6) Dyslipidemia: (7) Scrotal swelling: Plan 64 yo male PMHx HLD, insomnia/hypersomnia/witnessed apneas w/o diagnosis of GERTRUDIS, presented via EMS from PCP for new onset A fib with RVR. Was seen at PCP office for welcome to medicare visit and found to be in A fib with RVR on screening EKG. He reports being in his usual state of health until his PCP appointment when he experienced a sense of anxiety/lightheadedness/palpitations in his chest. He reports this happened briefly a couple months ago as well. Overnight 05/02, patient became agitated with hallucinations and tachycardia, attempted to leave AMA and security was called and patient medically sedated to be continued on AWSS protocol. Improving through alcohol withdrawal and heart rates improving with medication adjustments. #Alcohol withdrawal / Alcohol use disorder Drinks ~6 alcohol drinks daily. Chronic pancytopenia, recommend further outpatient workup Tapering doses of librium at this point, can consider naltrexone for outpt PT/OT recommending short term rehab #Afib with RVR Continue metoprolol 100 mg BID - Started/continued on Eliquis 5 mg BID Echocardiogram with low-normal systolic function, EF 50-55%, no regional wall motion abnormalities, no significant valvular abnormalities #Probable GERTRUDIS Suspected underlying GERTRUDIS - witnessed apneas, nonrestorative sleep, daytime hypersomnolence. Father and brother with GERTRUDIS Sleep study in May 2023 inconclusive - recommend repeat/further workup outpatient Continue Albuterol inhaler prn for wheezing #Scrotal Swelling Noted - appears asymptomatic; unclear if chronic or acute Could consider hepatic US to investigate for advanced liver disease as the cause, however PT/INR and TBili unremarkable on admission #Hypomagnesemia Mag low at 1.4 on admission, repleted with Mag 2 g IV. Augmented appropriately and now WNL #HLD Cont. atorvastatin DVT prophylaxis: Eliquis PT/OT recommend short term rehab, informed CM. Decreased Librium Discussed discharge planning with CM Admission and Anticipated Discharge Date Admission Date: April 30, 2024 Subjective pt is much less lethargic, continue to taper Librium, he is having issues with PT/OT no other complaints at this time Physical Exam Physical Exam: cardiac is regular lungs are clear ext with trace edema Results & Data Results & Data Vital Signs (Past 12 Hours) Vital Signs Temp Pulse Pulse Resp BP Pulse Ox O2 Del Method 05/09/24 15:40 97.7 F 60 16 119/63 97 Room Air 05/09/24 14:55 66 05/09/24 12:00 97.9 F 77 18 105/74 98 Room Air 05/09/24 09:00 Room Air 05/09/24 07:53 80 05/09/24 07:53 97.7 F 66 16 98/65 L 96 Room Air PG Care Time/CCT Total # of Minutes Spent Total Time Spent with Patient: Total time spent is greater than 50% in coordination of care (as documented) at patient's floor/unit and/or counseling patient: Coding Level of Care Code 83626 SUB INP/OBS CARE 3/50MIN Diagnoses Atrial fibrillation with RVR I48.91 Alcohol withdrawal F10.939 Alcohol use disorder F10.90 Hypersomnia G47.10 Witnessed apneic spells R06.81 Dyslipidemia E78.5 Scrotal swelling N50.89
--- NOTE | 2024-05-10 17:54 | Hospitalist Progress Note ---
Date of Service May 10, 2024 Assessment & Plan (1) Atrial fibrillation with RVR: (2) Alcohol withdrawal: (3) Alcohol use disorder: (4) Hypersomnia: (5) Witnessed apneic spells: (6) Dyslipidemia: (7) Scrotal swelling: Plan 64 yo male PMHx HLD, insomnia/hypersomnia/witnessed apneas w/o diagnosis of GERTRUDIS, presented via EMS from PCP for new onset A fib with RVR. Was seen at PCP office for welcome to medicare visit and found to be in A fib with RVR on screening EKG. He reports being in his usual state of health until his PCP appointment when he experienced a sense of anxiety/lightheadedness/palpitations in his chest. He reports this happened briefly a couple months ago as well. Overnight 05/02, patient became agitated with hallucinations and tachycardia, attempted to leave AMA and security was called and patient medically sedated to be continued on AWSS protocol. treated with lorazepam then transitioned to chlordiazepoxide taper, alcohol withdrawal has resolved. Heart rate has been well-controlled in A-fib on oral medications #Alcohol withdrawal / Alcohol use disorder Drinks ~6 alcohol drinks daily. Chronic pancytopenia, probably from toxic effect of alcohol on the bone marrow, labs not consistent with cirrhosisrecommend repeat CBC in primary care to see whether there is resolution decrease Librium to 10 mg daily reviewed labs today and creatinine is normal/at baseline - 0.8 I discussed oral naltrexone with him today and counseled alcohol cessation, he intends to quit drinking and has a pamphlet of quite resources but he does not want to try starting medication assisted treatment yet PT/OT recommended rehab which she has refused, his mobility has been quickly improving day by day however and we anticipate he will be able to discharge home tomorrow with home health and some supervision by his family. Discussed with behavioral health case manager #Afib with RVR rate has been well-controlled recently Continue metoprolol 100 mg BID, apixaban 5 mg twice daily Echocardiogram with low-normal systolic function, EF 50-55%, no regional wall motion abnormalities, no significant valvular abnormalities #Probable GERTRUDIS Suspected underlying GERTRUDIS - witnessed apneas, nonrestorative sleep, daytime hypersomnolence. Father and brother with GERTRUDIS Sleep study in May 2023 inconclusive - recommend repeat/further workup outpatient Continue Albuterol inhaler prn for wheezing #Scrotal Swelling Noted - appears asymptomatic; unclear if chronic or acute reviewed CMP and coags, no evidence of decompensated cirrhosis on labs or physical exam #Hypomagnesemia Mag low at 1.4 on admission, repleted with Mag 2 g IV. Augmented appropriately and now WNL #HLD Cont. atorvastatin DVT prophylaxis: Alexandra transfer off of PCU Admission and Anticipated Discharge Date Admission Date: April 30, 2024 Subjective Feels better today, thinking is clearer, mobility improved, no withdrawal symptoms like shakes or sweats, intends to stop drinking No chest pain/dyspnea Rate controlled Afib on tele review Physical Exam 2 Physical Exam: PHYSICAL EXAMINATION Last 24h vital signs reviewed, see documentation in flowsheet General: comfortable appearing, no distress HEENT: Normocephalic, atraumatic, pupils round and equal, sclerae anicteric, no conjunctival injection, moist mucus membranes Lungs: Normal respiratory effort. Clear to auscultation bilaterally. No RRW Heart: Regular rate and rhythm, no murmurs. No JVD Abdomen: Soft, nontender, nondistended. Bowel sounds present. Extremities: Warm, dry, well-perfused. No extremity edema. Neuro: Alert and oriented x 4, face symmetric, moves 4 extremities well Psych: Normal affect and behavior Results & Data Results & Data Vital Signs (Past 12 Hours) Vital Signs Temp Pulse Resp BP BP Pulse Ox O2 Del Method 05/10/24 11:59 36.5 C 79 18 126/69 98 Room Air 05/10/24 10:34 Room Air 05/10/24 08:28 36.6 C 78 20 118/70 139/68 97 Room Air Laboratory Results 05/05/24 06:31 05/09/24 06:19 PG Care Time/CCT Total # of Minutes Spent Total Time Spent with Patient: Total time spent is greater than 50% in coordination of care (as documented) at patient's floor/unit and/or counseling patient: Coding Level of Care Code 73768 SUB INP/OBS CARE 2/35MIN Diagnoses Atrial fibrillation with RVR I48.91 Alcohol withdrawal F10.939 Alcohol use disorder F10.90 Hypersomnia G47.10 Witnessed apneic spells R06.81 Dyslipidemia E78.5 Scrotal swelling N50.89
[2024-05-10] MEDS: LACTATED RINGER'S 1,000 ML IV ONE (22:09)
--- NOTE | 2024-05-11 17:12 | Hospitalist Progress Note ---
Date of Service May 11, 2024 Assessment & Plan (1) Atrial fibrillation with RVR: (2) Alcohol withdrawal: (3) Alcohol use disorder: (4) Hypersomnia: (5) Witnessed apneic spells: (6) Dyslipidemia: (7) Scrotal swelling: Plan 64 yo male PMHx HLD, insomnia/hypersomnia/witnessed apneas w/o diagnosis of GERTRUDIS, presented via EMS from PCP for new onset A fib with RVR. Was seen at PCP office for welcome to medicare visit and found to be in A fib with RVR on screening EKG. He reports being in his usual state of health until his PCP appointment when he experienced a sense of anxiety/lightheadedness/palpitations in his chest. He reports this happened briefly a couple months ago as well. Overnight 05/02, patient became agitated with hallucinations and tachycardia, attempted to leave AMA and security was called and patient medically sedated to be continued on AWSS protocol. treated with lorazepam then transitioned to chlordiazepoxide taper, alcohol withdrawal has resolved. Heart rate has been well-controlled in A-fib on oral medications #Alcohol withdrawal / Alcohol use disorder Drinks ~6 alcohol drinks daily. Chronic pancytopenia, probably from toxic effect of alcohol on the bone marrow, labs not consistent with cirrhosisrecommend repeat CBC in primary care to see whether there is resolution Librium to 10 mg daily for a few days since stop he continues to have some confusion and high fall risk, not suitable for home discharge today. I had a discussion with him and his ex- at bedside and he is agreeable to rehab referrals Discussed with [facility] - referral [facility] #Afib with RVR rate has been well-controlled recently reduce metoprolol to 75 mg twice daily because of hypotensive episode last night and mild hypotension today, apixaban 5 mg twice daily Echocardiogram with low-normal systolic function, EF 50-55%, no regional wall motion abnormalities, no significant valvular abnormalities #Probable GERTRUDIS Suspected underlying GERTRUDIS - witnessed apneas, nonrestorative sleep, daytime hypersomnolence. Father and brother with GERTRUDIS Sleep study in May 2023 inconclusive - recommend repeat/further workup outpatient Continue Albuterol inhaler prn for wheezing #Scrotal Swelling Noted - appears asymptomatic; unclear if chronic or acute reviewed CMP and coags, no evidence of decompensated cirrhosis on labs or physical exam #Hypomagnesemia Mag low at 1.4 on admission, repleted with Mag 2 g IV. Augmented appropriately and now WNL #HLD Cont. atorvastatin DVT prophylaxis: Maryquis Admission and Anticipated Discharge Date Admission Date: April 30, 2024 Subjective same feels like he is doing better, however RN notes that he was quite unsteady this morning and he had some intermittent confusion he had PT today walked a good distance but was very unsteady with poor safety awareness and high fall risk, he was very high fall risk on stairs Physical Exam Physical Exam: PHYSICAL EXAMINATION Last 24h vital signs reviewed, see documentation in flowsheet General: comfortable appearing, no distress exam unchanged 05/11 HEENT: Normocephalic, atraumatic, pupils round and equal, sclerae anicteric, no conjunctival injection, moist mucus membranes Lungs: Normal respiratory effort. Clear to auscultation bilaterally. No RRW Heart: Regular rate and rhythm, no murmurs. No JVD Abdomen: Soft, nontender, nondistended. Bowel sounds present. Extremities: Warm, dry, well-perfused. No extremity edema. Neuro: Alert and oriented x 4, face symmetric, moves 4 extremities well. no tremor or diaphoresis Psych: Normal affect and behavior Results & Data Results & Data Vital Signs (Past 12 Hours) Vital Signs Temp Pulse Pulse Resp BP BP Pulse Ox 05/11/24 15:33 36.7 C 82 20 95/59 L 92 05/11/24 15:07 89 05/11/24 11:04 36.5 C 65 19 105/74 94 05/11/24 07:41 05/11/24 07:24 36.5 C 74 19 119/74 97 O2 Del Method 05/11/24 15:33 Room Air 05/11/24 15:07 05/11/24 11:04 Room Air 05/11/24 07:41 Room Air 05/11/24 07:24 Room Air PG Care Time/CCT Total # of Minutes Spent Total Time Spent with Patient: Total time spent is greater than 50% in coordination of care (as documented) at patient's floor/unit and/or counseling patient: Coding Level of Care Code 57761 SUB INP/OBS CARE 2/35MIN Diagnoses Atrial fibrillation with RVR I48.91 Alcohol withdrawal F10.939 Alcohol use disorder F10.90 Hypersomnia G47.10 Witnessed apneic spells R06.81 Dyslipidemia E78.5 Scrotal swelling N50.89
[2024-05-11] MEDS: METOPROLOL TARTRATE 25 MG TAB PO SCH (22:21)
--- NOTE | 2024-05-12 15:17 | Hospitalist Progress Note ---
Date of Service May 12, 2024 Assessment & Plan (1) Atrial fibrillation with RVR: (2) Alcohol withdrawal: (3) Alcohol use disorder: (4) Hypersomnia: (5) Witnessed apneic spells: (6) Dyslipidemia: (7) Scrotal swelling: Plan 64 yo male PMHx HLD, insomnia/hypersomnia/witnessed apneas w/o diagnosis of GERTRUDIS, presented via EMS from PCP for new onset A fib with RVR. Was seen at PCP office for welcome to medicare visit and found to be in A fib with RVR on screening EKG. He reports being in his usual state of health until his PCP appointment when he experienced a sense of anxiety/lightheadedness/palpitations in his chest. He reports this happened briefly a couple months ago as well. Overnight 05/02, patient became agitated with hallucinations and tachycardia, attempted to leave AMA and security was called and patient medically sedated to be continued on AWSS protocol. treated with lorazepam then transitioned to chlordiazepoxide taper, alcohol withdrawal has resolved. Heart rate has been well-controlled in A-fib on oral medications #Alcohol withdrawal / Alcohol use disorder Drinks ~6 alcohol drinks daily. Chronic pancytopenia, probably from toxic effect of alcohol on the bone marrow, labs not consistent with cirrhosisrecommend repeat CBC in primary care to see whether there is resolution stop chlordiazepoxide, am cbc #Afib with RVR rate has been well-controlled recently reduced metoprolol to 75 mg twice daily 05/11 because of hypotension, assess response, continue apixaban 5 mg twice daily Echocardiogram with low-normal systolic function, EF 50-55%, no regional wall motion abnormalities, no significant valvular abnormalities #Probable GERTRUDIS Suspected underlying GERTRUDIS - witnessed apneas, nonrestorative sleep, daytime hypersomnolence. Father and brother with GERTRUDIS Sleep study in May 2023 inconclusive - recommend repeat/further workup outpatient Continue Albuterol inhaler prn for wheezing #Scrotal Swelling Noted - appears asymptomatic; unclear if chronic or acute reviewed CMP and coags, no evidence of decompensated cirrhosis on labs or physical exam #Hypomagnesemia Mag low at 1.4 on admission, repleted with Mag 2 g IV. Augmented appropriately and now WNL #HLD Cont. atorvastatin DVT prophylaxis: Eliquis Admission and Anticipated Discharge Date Admission Date: April 30, 2024 Subjective Mr. Schneider is feeling pretty good today no withdrawal symptoms and confusion seems to be resolving or resolved no dyspnea chest pain or palpitations Physical Exam Physical Exam: PHYSICAL EXAMINATION Last 24h vital signs reviewed, see documentation in flowsheet General: awake sitting in bed watching television exam unchanged 05/12 HEENT: Normocephalic, atraumatic, pupils round and equal, sclerae anicteric, no conjunctival injection, moist mucus membranes Lungs: Normal respiratory effort. Clear to auscultation bilaterally. No RRW Heart: irregularly irregular, no murmurs. No JVD Abdomen: Soft, nontender, nondistended. Bowel sounds present. Extremities: Warm, dry, well-perfused. No extremity edema. Neuro: Alert and oriented x 4, face symmetric, moves 4 extremities well. no tremor or diaphoresis Psych: Normal affect and behavior Results & Data Results & Data Vital Signs (Past 12 Hours) Vital Signs Temp Pulse Pulse Resp BP Pulse Ox O2 Del Method 05/12/24 14:23 87 05/12/24 11:15 36.6 C 82 20 89/64 L 100 Room Air 05/12/24 10:17 Room Air 05/12/24 07:16 36.6 C 87 22 112/80 93 Room Air PG Care Time/CCT Total # of Minutes Spent Total Time Spent with Patient: Total time spent is greater than 50% in coordination of care (as documented) at patient's floor/unit and/or counseling patient: Coding Level of Care Code 53496 SUB INP/OBS CARE 2/35MIN Diagnoses Atrial fibrillation with RVR I48.91 Alcohol withdrawal F10.939 Alcohol use disorder F10.90 Hypersomnia G47.10 Witnessed apneic spells R06.81 Dyslipidemia E78.5 Scrotal swelling N50.89
[2024-05-13 06:36] LABS: Hematocrit (blood only) 44.2 % (42.0-52.0); Hemoglobin 15.3 g/dl (14.0-18.0); Mean Corpuscular Hemoglobin 35.6 pg (25.0-34.0); Mean Corpuscular Hgb Conc 34.6 g/dL (32.0-36.0); Mean Corpuscular Volume 102.8 fL (80.0-100.0); Platelet Count 184 K/uL (130-400); RDW Coefficient of Variation 10.9 % (11.5-14.5); RDW Standard Deviation 41.7 fL (36.4-46.3); White Blood Count 4.53 K/ul (4.8-10.8)
--- NOTE | 2024-05-13 17:04 | Hospitalist Progress Note ---
Date of Service May 13, 2024 Assessment & Plan (1) Atrial fibrillation with RVR: (2) Alcohol withdrawal: (3) Alcohol use disorder: (4) Hypersomnia: (5) Witnessed apneic spells: (6) Dyslipidemia: (7) Scrotal swelling: Plan 64 yo male PMHx HLD, insomnia/hypersomnia/witnessed apneas w/o diagnosis of GERTRUDIS, presented via EMS from PCP for new onset A fib with RVR. Was seen at PCP office for welcome to medicare visit and found to be in A fib with RVR on screening EKG. He reports being in his usual state of health until his PCP appointment when he experienced a sense of anxiety/lightheadedness/palpitations in his chest. He reports this happened briefly a couple months ago as well. Overnight 05/02, patient became agitated with hallucinations and tachycardia, attempted to leave AMA and security was called and patient medically sedated to be continued on AWSS protocol. treated with lorazepam then transitioned to chlordiazepoxide taper, alcohol withdrawal has resolved. Heart rate has been well-controlled in A-fib on oral medications #Alcohol withdrawal / Alcohol use disorder Drinks ~6 alcohol drinks daily. he had alcohol withdrawal this admission treated with as needed benzodiazepines, he had a Librium taper which completed 05/12, no further signs of withdrawal he has a pamphlet for alcohol quit resources he is not sure whether he is interested in naloxone treatment plans to discuss this with his outpatient providers chronic pancytopenia related to direct toxic effect of alcohol on the bone marrow, labs and physical exam not consistent with severe cirrhosis, reviewed CBC 05/13 white blood count is near normal he is not anemic and thrombocytopenia has resolved #Afib with RVR rate has been well-controlled recently reduced metoprolol to 75 mg twice daily 05/11 because of hypotension, assess response, continue apixaban 5 mg twice daily - 1 fast heart rate this morning otherwise well-controlled blood pressure remains low normal to mildly low Echocardiogram with low-normal systolic function, EF 50-55%, no regional wall motion abnormalities, no significant valvular abnormalities #Probable GERTRUDIS Suspected underlying GERTRUDIS - witnessed apneas, nonrestorative sleep, daytime hypersomnolence. Father and brother with GERTRUDIS Sleep study in May 2023 inconclusive - recommend repeat/further workup outpatient Continue Albuterol inhaler prn for wheezing #Scrotal Swelling Noted - appears asymptomatic; unclear if chronic or acute reviewed CMP and coags, no evidence of decompensated cirrhosis on labs or physical exam #Hypomagnesemia low at admission, replaced resolved #HLD Cont. atorvastatin DVT prophylaxis: Eliquis Admission and Anticipated Discharge Date Admission Date: April 30, 2024 Subjective Kana feels fine there is nothing really new going on today, he is having no alcohol or benzo withdrawal symptoms, I see 1 heart rate of 123 early this morning otherwise rates well-controlled continues to have intermittent mild hypotension on current dose of beta-mansoor Physical Exam Physical Exam: PHYSICAL EXAMINATION Last 24h vital signs reviewed, see documentation in flowsheet General: awake lying in bed exam unchanged 05/13 HEENT: Normocephalic, atraumatic, pupils round and equal, sclerae anicteric, no conjunctival injection, moist mucus membranes Lungs: Normal respiratory effort. Clear to auscultation bilaterally. No RRW Heart: irregularly irregular, no murmurs. No JVD Abdomen: nondistended Extremities: Warm, dry, well-perfused. No extremity edema. Neuro: Alert and oriented x 4, face symmetric, moves 4 extremities well. no tremor or diaphoresis Psych: Normal affect and behavior Results & Data Results & Data Vital Signs (Past 12 Hours) Vital Signs Temp Pulse Pulse Resp BP Pulse Ox O2 Del Method 05/13/24 16:02 73 05/13/24 14:55 36.4 C L 87 20 97/70 L 93 Room Air 05/13/24 10:36 36.5 C 81 19 100/70 94 Room Air 05/13/24 08:08 Room Air 05/13/24 07:40 36.5 C 123 H 17 106/75 94 Room Air PG Care Time/CCT Total # of Minutes Spent Total Time Spent with Patient: Total time spent is greater than 50% in coordination of care (as documented) at patient's floor/unit and/or counseling patient: Coding Level of Care Code 99075 SUB INP/OBS CARE 2/35MIN Diagnoses Atrial fibrillation with RVR I48.91 Alcohol withdrawal F10.939 Alcohol use disorder F10.90 Hypersomnia G47.10 Witnessed apneic spells R06.81 Dyslipidemia E78.5 Scrotal swelling N50.89
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
--- NOTE | 2024-05-14 12:21 | Billing Data ---
Date of Service May 14, 2024 Coding Level of Care Code 84314 INT INP/OBS CARE
[2024-05-14] MEDS: METOPROLOL TARTRATE 50 MG TAB PO SCH (20:23)
--- NOTE | 2024-05-15 15:54 | Hospitalist Progress Note ---
Date of Service May 15, 2024 Assessment & Plan (1) Atrial fibrillation with RVR: (2) Alcohol withdrawal: (3) Alcohol use disorder: (4) Hypersomnia: (5) Witnessed apneic spells: (6) Dyslipidemia: (7) Scrotal swelling: Plan 64 yo male PMHx HLD, insomnia/hypersomnia/witnessed apneas w/o diagnosis of GERTRUDIS, presented via EMS from PCP for new onset A fib with RVR. Was seen at PCP office for welcome to medicare visit and found to be in A fib with RVR on screening EKG. He reports being in his usual state of health until his PCP appointment when he experienced a sense of anxiety/lightheadedness/palpitations in his chest. He reports this happened briefly a couple months ago as well. Overnight 05/02, patient became agitated with hallucinations and tachycardia, attempted to leave AMA and security was called and patient medically sedated to be continued on AWSS protocol. treated with lorazepam then transitioned to chlordiazepoxide taper, alcohol withdrawal has resolved. Heart rate has been well-controlled in A-fib on oral medications #Alcohol withdrawal / Alcohol use disorder Drinks ~6 alcohol drinks daily. 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, labs and physical exam not consistent with severe cirrhosis, reviewed CBC 05/13 white blood count is near normal he is not anemic and thrombocytopenia has resolved #Afib with RVR rate has been well-controlled recently reduced metoprolol to 75 mg twice daily 05/11 because of hypotension, blood pressures have improved and rate remains controlled Echocardiogram with low-normal systolic function, EF 50-55%, no regional wall motion abnormalities, no significant valvular abnormalities #Probable GERTRUDIS Suspected underlying GERTRUDIS - witnessed apneas, nonrestorative sleep, daytime hypersomnolence. Father and brother with GERTRUDIS Sleep study in May 2023 inconclusive - recommend repeat/further workup outpatient Continue Albuterol inhaler prn for wheezing #Scrotal Swelling Noted - appears asymptomatic; unclear if chronic or acute reviewed CMP and coags, no evidence of decompensated cirrhosis on labs or physical exam #Hypomagnesemia low at admission, replaced resolved #HLD Cont. atorvastatin DVT prophylaxis: Alexandra Called insurance back for [id number] Admission and Anticipated Discharge Date Admission Date: April 30, 2024 Subjective Feels good, thinks he did well with PT this am Has not been tachycardic on last 24h tele review, no CP or palpitations Physical Exam Physical Exam: PHYSICAL EXAMINATION Last 24h vital signs reviewed, see documentation in flowsheet General: awake lying in bed exam unchanged 05/15 HEENT: Normocephalic, atraumatic, pupils round and equal, sclerae anicteric, no conjunctival injection, moist mucus membranes Lungs: Normal respiratory effort. Clear to auscultation bilaterally. No RRW Heart: irregularly irregular, no murmurs. No JVD Abdomen: nondistended Extremities: Warm, dry, well-perfused. No extremity edema. Neuro: Alert and oriented x 4, face symmetric, moves 4 extremities well. no tremor or diaphoresis Psych: Normal affect and behavior Results & Data Results & Data Vital Signs (Past 12 Hours) Vital Signs Temp Pulse Pulse Resp BP Pulse Ox O2 Del Method 05/15/24 15:19 80 05/15/24 15:09 36.5 C 76 20 104/73 96 Room Air 05/15/24 10:36 36.3 C L 66 100/71 97 Room Air 05/15/24 08:00 81 05/15/24 07:17 36.7 C 113 H 21 108/75 96 Room Air PG Care Time/CCT Total # of Minutes Spent Total Time Spent with Patient: Total time spent is greater than 50% in coordination of care (as documented) at patient's floor/unit and/or counseling patient: Coding Level of Care Code 73760 SUB INP/OBS CARE 2/35MIN Diagnoses Atrial fibrillation with RVR I48.91 Alcohol withdrawal F10.939 Alcohol use disorder F10.90 Hypersomnia G47.10 Witnessed apneic spells R06.81 Dyslipidemia E78.5 Scrotal swelling N50.89
[2024-05-16 07:20] VITALS: TEMP 97.3
[2024-05-16] MEDS: THIAMINE HCL 100 MG TAB PO SCH (09:38)
[2024-05-16] MEDS: CEROVITE ADV FORMULA TAB PO SCH (09:38)
[2024-05-16] MEDS: NALTREXONE HCL 50 MG TAB PO SCH (09:38)
[2024-05-16] MEDS: FOLIC ACID 1 MG TAB PO SCH (09:40)
[2024-05-16 10:24] LABS: Calcium 9.3 mg/dl (8.6-10.3); Magnesium 1.6 mg/dl (1.7-2.4); Potassium 4.6 mmol/L (3.5-5.1)
[2024-05-16 10:30] LABS: BUN Creatinine Ratio 17.8 (10-20); Creatinine Clr Calc Pharmacy 81.3 ml/min
[2024-05-16 11:45] VITALS: RESP 19; O2SAT 93
--- NOTE | 2024-05-16 11:56 | Discharge Summary ---
Discharge Summary Date of Service May 16, 2024 Principal Dx & Hospital Course #1 = Principal Diagnosis (1) Atrial fibrillation with RVR: (2) Alcohol withdrawal: (3) Alcohol use disorder: (4) Hypersomnia: (5) Witnessed apneic spells: (6) Dyslipidemia: (7) Scrotal swelling: Plan 64 yo male PMHx HLD, insomnia/hypersomnia/witnessed apneas w/o diagnosis of GERTRUDIS, presented via EMS from PCP for new onset A fib with RVR. Was seen at PCP office for welcome to medicare visit and found to be in A fib with RVR on screening EKG. He reports being in his usual state of health until his PCP appointment when he experienced a sense of anxiety/lightheadedness/palpitations in his chest. He reports this happened briefly a couple months ago as well. Overnight 05/02, patient became agitated with hallucinations and tachycardia, attempted to leave AMA and security was called and patient medically sedated to be continued on AWSS protocol. treated with lorazepam then transitioned to chlordiazepoxide taper, alcohol withdrawal has resolved. Heart rate has been well-controlled in A-fib on oral medications #Alcohol withdrawal / Alcohol use disorder Drinks ~6 alcohol drinks daily. 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, labs and physical exam not consistent with severe cirrhosis, reviewed CBC 05/13 white blood count is near normal he is not anemic and thrombocytopenia has resolved #Afib with RVR rate has been well-controlled recently reduced metoprolol to 75 mg twice daily 05/11 because of hypotension, blood pressures have improved and rate remains controlled Echocardiogram with low-normal systolic function, EF 50-55%, no regional wall motion abnormalities, no significant valvular abnormalities #Probable GERTRUDIS Suspected underlying GERTRUDIS - witnessed apneas, nonrestorative sleep, daytime hypersomnolence. Father and brother with GERTRUDIS Sleep study in May 2023 inconclusive - recommend repeat/further workup outpatient Continue Albuterol inhaler prn for wheezing #Scrotal Swelling Noted - appears asymptomatic; unclear if chronic or acute reviewed CMP and coags, no evidence of decompensated cirrhosis on labs or physical exam #Hypomagnesemia low at admission, replaced resolved #HLD Cont. atorvastatin DVT prophylaxis: Maryqumaikel Called insurance back for [id number] Admission HPI Per Admitting Provider 64 yo male PMHx HLD, insomnia/hypersomnia/witnessed apneas w/o diagnosis of GERTRUDIS admitted for new onset afib w/RVR. Was seen at PCP office earlier today for welcome to medicare visit and found to be in afib with RVR on screening EKG. He was in his usual state of health until today. He states that he has felt sense of anxiety/lightness/palpitations in his chest for some time but cannot exactly quantify the onset of these symptoms. He denies CP, SOB, lightheadedness, N/V/D, new LE edema. Denies cardiac history besides HLD for which he is on low dose atorvastatin. Of note, pt has had workup for GERTRUDIS in the past with sleep study in 05/2024 - study was poor quality and inconclusive. Pt continues to have daytime hypersomnia, witnessed apneas, nonrestorative sleep At the time of admission, pt lying comfortably in bed, asymptomatic. No current complaints. ED Course: EKG reveals afib w/ RVR @138BPM Labs reveal: thrombocytopenia, coags WNL, Mg 1.4, mild elevation in AST and T bili Given 2g MgSO4 IV Given diltiazem 50mg IV x 2 Intermittently normocardic to tachycardic, was in 120s at time of admission Discharge Plan Discharge Items Reason For Visit: NEW ONSET AFIB W/ RVR Follow-up/Referrals: Melvin Workman III, CRNP [Primary Care Provider] - Medications and DC Order Prescriptions: New Eliquis 5 mg Tablet 5 mg PO BID Qty: 60 0RF No Action atorvastatin 10 mg tablet 10 mg PO HS Qty: 90 3RF Admission Data Admit Date/Time: 04/30/24 19:22 Attending Provider: Lars Ritchie Admit Provider: Wes Pratt Primary Care Provider: Melvin Workman III Other Providers: [facility]; Jair Weston; [place]; [facility]; [place]; [facility], Hospital Stay Data Consultations 04/30/24 18:55 ED Decision to Admit Stat Coding Diagnoses Atrial fibrillation with RVR I48.91 Alcohol withdrawal F10.939 Alcohol use disorder F10.90 Hypersomnia G47.10 Witnessed apneic spells R06.81 Dyslipidemia E78.5 Scrotal swelling N50.89
[2024-05-16] MEDS: MAGNESIUM OXIDE 400 MG TAB PO SCH (13:34)
[2024-05-16 13:56] VITALS: BP 98/68; PULSE 120
== END 2024-05-16 14:55 | DRG 309 ==
LOC: ED 15:40 → SUATTDRO 19:22 → 2S 19:22
DX: Z79.899 Other long term (current) drug therapy; D69.6 Thrombocytopenia, unspecified; E78.5 Hyperlipidemia, unspecified; G47.33 Obstructive sleep apnea (adult) (pediatric); I48.91 Unspecified atrial fibrillation; N50.89 Other specified disorders of the male genital organs; E83.42 Hypomagnesemia; D61.818 Other pancytopenia; F10.139 Alcohol abuse with withdrawal, unspecified; F17.210 Nicotine dependence, cigarettes, uncomplicated; R74.01 Elevation of levels of liver transaminase levels